=== PATIENT | female | born 1980 | race Caucasian/White ===

== ENCOUNTER 2017-04-30 22:05 | Emergency (ER) | payer MEDICARE, OTHER ==
[2017-04-30 22:18] VITALS: RESP 18
[2017-04-30] MEDS ORDERED: ONDANSETRON 4 MG/2 ML VIAL IVP STA (23:08)
[2017-04-30] MEDS ORDERED: SODIUM CHLORIDE 0.9% 1,000 ML IV STA (23:08)
[2017-04-30] MEDS ORDERED: METHADONE 10 MG TAB PO STA (23:09)
[2017-04-30 23:11] LABS: Appearance,Urine Cloudy (Clear); Bacteria,Urine Rare /hpf; Bilirubin,Urine Negative (Negative); Glucose,Urine (UA) Negative (Negative); Ketones,Urine 4+ (Negative); Leukocyte Esterase,Urine Small (Negative); Mucus,Urine Occasional /hpf; Nitrite,Urine Negative (Negative); PH, Urine 6.5 (5.0-8.0); Particle Count 8332; Protein,Urine 1+ (Negative); RBC,Urine 6 /hpf (0-5); Squamous Epithelial Cell,Urine 20 /hpf (0-4); UA Billing (MACRO vs. MICRO) MICRO; WBC,Urine 9 /hpf (0-5)
--- NOTE | 2017-04-30 23:31 | ED ---
Abdominal Pain HPI - General Chief Complaint: Abdominal Pain Stated Complaint: Vomiting Time Seen by Provider: 04/30/17 22:26 Source: patient Mode of arrival: wheelchair Limitations: no limitations - History of Present Illness Initial Comments: This patient is a 36-year-old woman who presents to be evaluated for a constellation of symptoms that includes diffuse, cramping abdominal pains, feeling hot and cold, and nausea and vomiting. This been going on today all day and getting worse into the evening. She has not noted any worsening or relieving factors. Symptoms currently moderate. No other associated symptoms. In reviewing the patient's past history medications it has become clear that she has been out of the fentanyl patches the last was placed approximately a week ago. MD Complaint: abdominal pain Onset/Timin -: days(s) Location: diffuse Severity: moderate Quality: cramping Consistency: intermittent Improves With: nothing Worsens With: nothing Associated Symptoms: nausea, vomiting - Related Data Home Medications Medication Instructions Recorded Confirmed Lurasidone [Latuda] 40 mg PO HS 09/17/14 09/28/15 QUEtiapine [SEROquel] 150 mg PO HS 09/17/14 09/28/15 Pregabalin [Lyrica] 300 mg PO BID 09/28/15 09/28/15 Previous Rx's Medication Instructions Recorded Sulfamethox-Tmp 800-160Mg [Bactrim 1 each PO Q12HR #6 tab 09/29/15 Ds] Allergies Allergy/AdvReac Type Severity Reaction Status Date / Time acetaminophen Allergy Rapid Verified 04/30/17 22:18 [From Tylenol-Codeine #3] Heart Rate codeine phosphate Allergy Rapid Verified 04/30/17 22:18 [From Tylenol-Codeine #3] Heart Rate hydrocortisone Allergy Rash/Hives Verified 04/30/17 22:18 Penicillins Allergy Swelling Verified 04/30/17 22:18 venlafaxine HCl Allergy Rapid Verified 04/30/17 22:18 [From Effexor] Heart Rate Review of Systems ROS Statement: Those systems with pertinent positive or pertinent negative responses have been documented in the HPI. ROS Other: All systems not noted in ROS Statement are negative. Constitutional: Reports: other (Feeling hot and cold) Eyes: Denies: vision change Respiratory: Denies: cough, dyspnea Cardiovascular: Denies: chest pain, edema, syncope Gastrointestinal: Reports: as per HPI, abdominal pain, nausea, vomiting, diarrhea. Denies: constipation, hematemesis, melena, hematochezia Genitourinary: Denies: dysuria, hematuria Musculoskeletal: Denies: back pain Skin: Denies: rash Neurological: Denies: headache, weakness, numbness Psychiatric: Reports: anxiety Past Medical History Past Medical History: Asthma History of Any Multi-Drug Resistant Organisms: MRSA Past Surgical History: Cholecystectomy, Hysterectomy, Orthopedic Surgery, Tubal Ligation Additional Past Surgical History / Comment(s): lt hip,lt knee replacements recent amputation to lle bka bunionectomy Past Psychological History: Anxiety, Depression Smoking Status: Never smoker Past Alcohol Use History: None Reported Past Drug Use History: None Reported General Exam Limitations: no limitations General appearance: alert, in no apparent distress Head exam: Present: atraumatic, normocephalic Eye exam: Present: normal appearance. Absent: scleral icterus, conjunctival injection Neck exam: Present: normal inspection Respiratory exam: Present: normal lung sounds bilaterally. Absent: respiratory distress, wheezes, rales, rhonchi, stridor Cardiovascular Exam: Present: regular rate, normal rhythm, normal heart sounds. Absent: systolic murmur, diastolic murmur, rubs, gallop GI/Abdominal exam: Present: soft. Absent: distended, tenderness, guarding, rebound, mass Extremities exam: Present: normal capillary refill, other (Left below knee amputation). Absent: pedal edema, calf tenderness Back exam: Present: normal inspection. Absent: CVA tenderness (R), CVA tenderness (L) Neurological exam: Present: alert Skin exam: Present: warm, dry, intact, normal color. Absent: rash Course Vital Signs 04/30/17 04/30/17 22:16 23:43 Temperature 99.9 F H 99.9 F H Pulse Rate 81 81 Respiratory 18 18 Rate Blood Pressure 130/88 151/97 O2 Sat by Pulse 97 96 Oximetry Medical Decision Making - Lab Data Result diagrams: 04/30/17 23:40 04/30/17 23:40 Lab Results 04/30/17 04/30/17 04/30/17 Range/Units 23:00 23:00 23:40 WBC (3.8-10.6) k/uL RBC (3.80-5.40) m/uL Hgb (11.4-16.0) gm/dL Hct (34.0-46.0) % MCV (80.0-100.0) fL MCH (25.0-35.0) pg MCHC (31.0-37.0) g/dL RDW (11.5-15.5) % Plt Count (150-450) k/uL Neutrophils % % Lymphocytes % % Monocytes % % Eosinophils % % Basophils % % Neutrophils # (1.3-7.7) k/uL Lymphocytes # (1.0-4.8) k/uL Monocytes # (0-1.0) k/uL Eosinophils # (0-0.7) k/uL Basophils # (0-0.2) k/uL Sodium 137 (137-145) mmol/L Potassium 4.0 (3.5-5.1) mmol/L Chloride 104 (98-107) mmol/L Carbon Dioxide 23 (22-30) mmol/L Anion Gap 10 mmol/L BUN 8 (7-17) mg/dL Creatinine 0.60 (0.52-1.04) mg/dL Est GFR (MDRD) Af Amer >60 (>60 ml/min/1.73 sqM) Est GFR (MDRD) Non-Af >60 (>60 ml/min/1.73 sqM) Glucose 104 H (74-99) mg/dL Plasma Lactic Acid Steve (0.7-2.0) mmol/L Calcium 8.9 (8.4-10.2) mg/dL Total Bilirubin 0.6 (0.2-1.3) mg/dL AST 16 (14-36) U/L ALT 24 (9-52) U/L Alkaline Phosphatase 59 (38-126) U/L Total Protein 6.6 (6.3-8.2) g/dL Albumin 3.7 (3.5-5.0) g/dL Amylase 54 (30-110) U/L Lipase 27 (23-300) U/L Urine Color Yellow Urine Appearance Cloudy H (Clear) Urine pH 6.5 (5.0-8.0) Ur Specific [place] 1.020 (1.001-1.035) Urine Protein 1+ H (Negative) Urine Glucose (UA) Negative (Negative) Urine Ketones 4+ H (Negative) Urine Blood Small H (Negative) Urine Nitrite Negative (Negative) Urine Bilirubin Negative (Negative) Urine Urobilinogen 3.0 (<2.0) mg/dL Ur Leukocyte Esterase Small H (Negative) Urine RBC 6 H (0-5) /hpf Urine WBC 9 H (0-5) /hpf Ur Squamous Epith Cells 20 H (0-4) /hpf Urine Bacteria Rare H (None) /hpf Urine Mucus Occasional H (None) /hpf Urine HCG, Qual Not Detected (Not Detectd) 04/30/17 04/30/17 Range/Units 23:40 23:40 WBC 7.3 (3.8-10.6) k/uL RBC 4.26 (3.80-5.40) m/uL Hgb 12.2 (11.4-16.0) gm/dL Hct 36.5 (34.0-46.0) % MCV 85.5 (80.0-100.0) fL MCH 28.6 (25.0-35.0) pg MCHC 33.5 (31.0-37.0) g/dL RDW 15.9 H (11.5-15.5) % Plt Count 162 (150-450) k/uL Neutrophils % 86 % Lymphocytes % 9 % Monocytes % 4 % Eosinophils % 0 % Basophils % 0 % Neutrophils # 6.3 (1.3-7.7) k/uL Lymphocytes # 0.7 L (1.0-4.8) k/uL Monocytes # 0.3 (0-1.0) k/uL Eosinophils # 0.0 (0-0.7) k/uL Basophils # 0.0 (0-0.2) k/uL Sodium (137-145) mmol/L Potassium (3.5-5.1) mmol/L Chloride (98-107) mmol/L Carbon Dioxide (22-30) mmol/L Anion Gap mmol/L BUN (7-17) mg/dL Creatinine (0.52-1.04) mg/dL Est GFR (MDRD) Af Amer (>60 ml/min/1.73 sqM) Est GFR (MDRD) Non-Af (>60 ml/min/1.73 sqM) Glucose (74-99) mg/dL Plasma Lactic Acid Steve 1.0 (0.7-2.0) mmol/L Calcium (8.4-10.2) mg/dL Total Bilirubin (0.2-1.3) mg/dL AST (14-36) U/L ALT (9-52) U/L Alkaline Phosphatase (38-126) U/L Total Protein (6.3-8.2) g/dL Albumin (3.5-5.0) g/dL Amylase (30-110) U/L Lipase (23-300) U/L Urine Color Urine Appearance (Clear) Urine pH (5.0-8.0) Ur Specific [place] (1.001-1.035) Urine Protein (Negative) Urine Glucose (UA) (Negative) Urine Ketones (Negative) Urine Blood (Negative) Urine Nitrite (Negative) Urine Bilirubin (Negative) Urine Urobilinogen (<2.0) mg/dL Ur Leukocyte Esterase (Negative) Urine RBC (0-5) /hpf Urine WBC (0-5) /hpf Ur Squamous Epith Cells (0-4) /hpf Urine Bacteria (None) /hpf Urine Mucus (None) /hpf Urine HCG, Qual (Not Detectd) Disposition Clinical Impression: Opioid withdrawal Disposition: HOME SELF-CARE Condition: Fair Instructions: Opioid Withdrawal (ED) Referrals: Crystal [place] MD [Primary Care Provider] - 1-2 days
[2017-04-30 23:55] LABS: Basophils % (A) 0 %; CH 30.1; CHCM 35.3; Eosinophils % (A) 0 %; HCT 36.5 % (34.0-46.0); HDW 3.05; HGB 12.2 gm/dL (11.4-16.0); Luc # (Auto) 0.07; Luc % (Auto) 1; Lymphocytes # (A) 0.7 k/uL (1.0-4.8); Lymphocytes % (A) 9 %; MCH 28.6 pg (25.0-35.0); MCHC 33.5 g/dL (31.0-37.0); MCV 85.5 fL (80.0-100.0); Mean Platelet Volume 8.3; Monocytes # (A) 0.3 k/uL (0-1.0); Monocytes % (A) 4 %; Neutrophils # (A) 6.3 k/uL (1.3-7.7); Neutrophils % (A) 86 %; RBC 4.26 m/uL (3.80-5.40); RDW 15.9 % (11.5-15.5); WBC 7.3 k/uL (3.8-10.6)
[2017-05-01 00:06] LABS: ALT 24 U/L (9-52); AST 16 U/L (14-36); Alkaline Phosphatase 59 U/L (38-126); Amylase 54 U/L (30-110); Anion Gap 10 mmol/L; Blood Urea Nitrogen 8 mg/dL (7-17); Calcium 8.9 mg/dL (8.4-10.2); Carbon Dioxide 23 mmol/L (22-30); Chloride 104 mmol/L (98-107); Glucose 104 mg/dL (74-99); Non-African American GFR(MDRD) >60 (>60 ml/min/1.73 sqM); Sodium 137 mmol/L (137-145); Total Bilirubin 0.6 mg/dL (0.2-1.3); Total Protein 6.6 g/dL (6.3-8.2)
[2017-05-01] MEDS ORDERED: QUEtiapine 100 MG TAB PO STA (00:20)
[2017-05-01] MEDS ORDERED: PREGABALIN 100 MG CAP PO STA (00:20)
[2017-05-01 00:48] VITALS: BP 148/92; PULSE 80; TEMP 99
== END 2017-05-01 00:46 | disposition home or self-care (01) ==
LOC: EC 22:05
DX: F11.23 Opioid dependence with withdrawal (principal); F32.9 Major depressive disorder, single episode, unspecified; Z90.49 Acquired absence of other specified parts of digestive tract; Z88.5 Allergy status to narcotic agent; Z88.6 Allergy status to analgesic agent; Z88.0 Allergy status to penicillin; Z88.8 Allergy status to other drugs, medicaments and biological substances; Z79.899 Other long term (current) drug therapy
CPT/HCPCS: 99284; 96374; 96361; 36415; 80053; 82150; 83605; 83690; 85025; 81001; 81025; J2405; S0109

== ENCOUNTER → 2017-10-24 | Outpatient (CLI) | payer MEDICARE, OTHER ==
[2017-10-24 14:04] VITALS: BP 136/62; PULSE 94; TEMP 98.2; BMI 37.3
--- NOTE | 2017-10-24 15:44 | FL ---
EXAMINATION TYPE: FL barium swallow DATE OF EXAM: 10/24/2017 LIMITED UGI: CLINICAL HISTORY: Gastric sleeve surgery 5 years ago with increased epigastric pain and cramping TECHNIQUE: Limited esophagram is performed utilizing 10 oz of barium. A total of 78 seconds of fluor oscopic time was utilized during procedure. 19 spot images were saved during procedure. COMPARISON: None. FINDINGS: The patient swallowed contrast without difficulty or delay. Esophageal peristalsis and mo tility are felt satisfactory. There is good flow of contrast along the proximal anastomosis into gas tric sleeve and distal anastomosis into remnant pylorus and first portion of. There is good some barry y of flow into second portion of duodenum with some gastroesophageal reflux noted. Cholecystectomy cl ips are noted. Spinal stimulator device is noted. No contrast extravasation is seen to suggest leak. IMPRESSION: Some delay in emptying past the sleeve at level of origin of second portion of duodenum c ausing some gastroesophageal reflux.
--- NOTE | 2017-10-24 15:49 | P.HPBAR ---
Bariatric H&P - History & Physicial H&P Date: 10/24/17 History & Physicial: Visit/CC: follow up visit Patient initial contact: Initial weight: Initial weight in pounds: Height: 5 ft 5 in Initial BMI: Last weight: Current weight: 101.741 kg Current weight in pounds: 224.30 Current BMI: 37.3 [place] body weight (based on NIH guidelines): 56.699 kg Excess body weight loss: The patient is a 37 year-old F who presents for Bariatric Assessment. Patient presents today for sleeve gastrectomy follow-up. She has complaints of crampy abdominal pain. Past Medical History Past Medical History: Asthma History of Any Multi-Drug Resistant Organisms: None Reported Year Discovered:: 2007 MDRO Source:: left arm Past Surgical History: Cholecystectomy, Hysterectomy, Orthopedic Surgery, Tubal Ligation Additional Past Surgical History / Comment(s): lt hip,lt knee replacements recent amputation to lle bka bunionectomy spinal cord stimulator placed 3 years ago Past Psychological History: Anxiety, Depression Smoking Status: Never smoker Past Alcohol Use History: None Reported Past Drug Use History: None Reported Surgical - Exam Vital Signs Temp Pulse BP 98.2 F 94 136/62 10/24/17 13:56 10/24/17 13:56 10/24/17 13:56 - General well developed, no distress - Eyes PERRL - ENT normal pinna - Neck no masses - Respiratory normal expansion - Cardiovascular Rhythm: regular - Abdomen Abdomen: soft, non tender Bariatric Assessment & Plan Plan: Patient will be scheduled for EGD and esophagram to evaluate her gastric sleeve. She'll follow-up in one Bariatric Checklist Checklist: Plan: Checklist: EGD: 1. Hiatal hernia: 2. H. Pylori: HgbA1c: Vitamin D: Smoking: Never smoker Primary care physician referral: dr conte Psychiatry clearance: Cardiology clearance: Sleep study: Diet journal: VTE risk score: VTE risk level: Rehab needs at discharge:
== END | disposition home or self-care (01) ==
LOC: BARWHC3 13:40
PROVIDERS: ATTEND Surgery
DX: Z48.815 Encounter for surgical aftercare following surgery on the digestive system (principal); G89.28 Other chronic postprocedural pain; R10.9 Unspecified abdominal pain; K21.9 Gastro-esophageal reflux disease without esophagitis; E66.01 Morbid (severe) obesity due to excess calories; J45.909 Unspecified asthma, uncomplicated; F32.9 Major depressive disorder, single episode, unspecified; F41.9 Anxiety disorder, unspecified; Z90.710 Acquired absence of both cervix and uterus; Z90.49 Acquired absence of other specified parts of digestive tract; Z98.890 Other specified postprocedural states; Z96.652 Presence of left artificial knee joint; Z96.642 Presence of left artificial hip joint; Z68.37 Body mass index [BMI] 37.0-37.9, adult
CPT/HCPCS: 74220; G0463; 99211

== ENCOUNTER 2017-10-28 10:00 | Day surgery (SDC) | payer MEDICARE, OTHER ==
[2017-10-26 14:40] VITALS: BMI 33.3
[~2017-10-28 10:00] MED LIST: LACTATED RINGERS 1,000 ML IV SCH
[2017-10-28 10:42] VITALS: RESP 16; TEMP 98.2
--- NOTE | 2017-10-28 10:51 | P.GSHP ---
History of Present Illness H&P Date: 10/28/17 Chief Complaint: GERD This is a 37-year-old female who presents today for EGD. Patient's had complaints of GERD. She is a history of sleeve. Past Medical History Past Medical History: Asthma, Musculoskeletal Disorder, Osteoarthritis (OA) Additional Past Medical History / Comment(s): had blood clot in left hip after replacement 10 yrs. ago, frequent abd. pain History of Any Multi-Drug Resistant Organisms: MRSA Date of last positivie culture/infection: 2007 MDRO Source:: left arm Past Surgical History: Bariatric Surgery, Cholecystectomy, Hysterectomy, Orthopedic Surgery, Tubal Ligation Additional Past Surgical History / Comment(s): lap band then removal of, gastric sleeve, lt hip, multiple hip surgs., lt knee replacement, amputation to lle-bka bunionectomy, spinal cord stimulator Past Anesthesia/Blood Transfusion Reactions: No Reported Reaction Smoking Status: Current every day smoker - Past Family History Mother Family Medical History: Cancer Medications and Allergies Home Medications Medication Instructions Recorded Confirmed Type HYDROcodone/APAP 7.5-325MG [[place] 7.5 mg PO DAILY 10/24/17 10/26/17 History 7.5-325] Butalb/Acetaminophen/Caffeine 1 tab PO BID PRN 10/25/17 10/26/17 History [Fioricet 50-300-40 mg Capsule] Pregabalin [Lyrica] 75 mg PO BID 10/25/17 10/26/17 History QUEtiapine XR [SEROquel XR] 150 mg PO DAILY 10/25/17 10/26/17 History Allergies Allergy/AdvReac Type Severity Reaction Status Date / Time acetaminophen Allergy Rapid Verified 10/26/17 14:24 [From Tylenol-Codeine #3] Heart Rate codeine phosphate Allergy Rapid Verified 10/26/17 14:24 [From Tylenol-Codeine #3] Heart Rate hydrocortisone Allergy Rash/Hives Verified 10/26/17 14:24 Penicillins Allergy Swelling Verified 10/26/17 14:24 venlafaxine HCl Allergy Rapid Verified 10/26/17 14:24 [From Effexor] Heart Rate Surgical - Exam Vital Signs Temp Pulse Resp BP Pulse Ox 98.2 F 80 16 122/80 96 10/28/17 10:41 10/28/17 10:41 10/28/17 10:41 10/28/17 10:41 10/28/17 10:41 - General well developed, no distress - Eyes PERRL - ENT normal pinna - Neck no masses - Respiratory normal expansion - Cardiovascular Rhythm: regular - Abdomen Abdomen: soft, non tender Assessment and Plan Assessment: GERD. We'll perform EGD
[2017-10-28] MEDS ORDERED: LIDOCAINE 1% 20 ML VIAL (10MG/ML) FOR IV START INTRADERMA ONE (10:52)
[2017-10-28] MEDS ORDERED: PROPOFOL 10 MG/ML 20 ML VIAL IV ONE (10:56)
[2017-10-28] MEDS ORDERED: LIDOCAINE 1% INJ 10MG/ML (20 ML MDV) ONE (10:56)
--- NOTE | 2017-10-28 11:12 | P.OP ---
Date of Procedure: 10/28/17 Preoperative Diagnosis: GERD Postoperative Diagnosis: Antral gastritis Pyloric stricture Procedure(s) Performed: EGD Anesthesia: MAC Surgeon: Shankar Frausto Pathology: other (Antrum) Condition: stable Disposition: PACU Description of Procedure: The patient's placed on the endoscopy table lateral position. She received IV sedation. The gastric was placed oropharynx passed in the esophagus and stomach. The pylorus appeared to be strictured. Scope was then placed through the pylorus. First and second portion of the duodenum appeared normal. Scope was then brought back the antrum and a biopsies performed. The pylorus was balloon dilated with a 20-[place] balloon dilator. The remainder of the gastric sleeve appeared normal. The GE junction was at 40 cm s. The distal esophagus and proximal esophagus was normal. Scope was withdrawn for patient.
[2017-10-28 11:52] VITALS: BP 133/86
[2017-10-28 12:17] VITALS: PULSE 84
== END 2017-10-28 12:52 | disposition home or self-care (01) ==
LOC: ORWHC2ENDO 10:00
PROVIDERS: ATTEND Surgery
DX: K29.50 Unspecified chronic gastritis without bleeding (principal); K31.1 Adult hypertrophic pyloric stenosis; Z90.3 Acquired absence of stomach [part of]; J45.909 Unspecified asthma, uncomplicated; M19.90 Unspecified osteoarthritis, unspecified site; Z86.14 Personal history of Methicillin resistant Staphylococcus aureus infection; Z96.652 Presence of left artificial knee joint; Z89.512 Acquired absence of left leg below knee; Z79.891 Long term (current) use of opiate analgesic; Z79.899 Other long term (current) drug therapy; Z88.6 Allergy status to analgesic agent; Z88.5 Allergy status to narcotic agent; Z88.0 Allergy status to penicillin; Z88.8 Allergy status to other drugs, medicaments and biological substances; F17.200 Nicotine dependence, unspecified, uncomplicated
CPT/HCPCS: 88305; 43239; 43249; J2001; J2704

== ENCOUNTER → 2018-04-10 | Outpatient (CLI) | payer MEDICARE, OTHER ==
[2018-04-10 14:37] VITALS: BP 149/79; PULSE 77; RESP 14; BMI 37.7
--- NOTE | 2018-04-10 16:44 | P.HPBAR ---
Bariatric H&P - History & Physicial H&P Date: 04/10/18 History & Physicial: Visit/CC: f/u Patient initial contact: Initial weight: Initial weight in pounds: Height: 5 ft 5 in Initial BMI: Last weight: Current weight: 102.784 kg Current weight in pounds: 226.60 Current BMI: 37.7 [place] body weight (based on NIH guidelines): 56.699 kg Excess body weight loss: The patient is a 37 year-old F who presents for Bariatric Assessment. Patient presents today for sleeve gastrectomy follow-up. She states he has some GERD symptoms. Her weight has been stable. Her last esophagram was reviewed and there appears to be some holdup of contrast and second portion of duodenum. Past Medical History Past Medical History: Asthma, Musculoskeletal Disorder, Osteoarthritis (OA) Additional Past Medical History / Comment(s): had blood clot in left hip after replacement 10 yrs. ago, frequent abd. pain History of Any Multi-Drug Resistant Organisms: MRSA Year Discovered:: 2007 MDRO Source:: left arm Past Surgical History: Bariatric Surgery, Cholecystectomy, Hysterectomy, Orthopedic Surgery, Tubal Ligation Additional Past Surgical History / Comment(s): lap band then removal of, gastric sleeve, lt hip, multiple hip surgs., lt knee replacement, amputation to lle-bka bunionectomy, spinal cord stimulator, patient had sutures placed in anterior right forearm 03/30/18 due to a fall sustained and arm lacerated on a metal stake Past Anesthesia/Blood Transfusion Reactions: No Reported Reaction Past Psychological History: Anxiety, Depression Smoking Status: Current every day smoker Past Alcohol Use History: Occasional Additional Past Alcohol Use History / Comment(s): <1/2ppd on & off since age of 14 Past Drug Use History: Marijuana Additional Drug Use History / Comment(s): occasional use - Past Family History Mother Family Medical History: Cancer Surgical - Exam Vital Signs Pulse Resp BP 77 14 149/79 04/10/18 14:32 04/10/18 14:32 04/10/18 14:32 - General well developed, no distress - Abdomen Abdomen: soft, non tender Bariatric Assessment & Plan Plan: GERD. Patient was scheduled for EGD. Bariatric Checklist Checklist: Plan: Checklist: EGD: 1. Hiatal hernia: 2. H. Pylori: HgbA1c: Vitamin D: Smoking: Current every day smoker Primary care physician referral: dr conte Psychiatry clearance: Cardiology clearance: Sleep study: Diet journal: VTE risk score: VTE risk level: Rehab needs at discharge:
== END | disposition home or self-care (01) ==
LOC: BARWHC3 13:57
PROVIDERS: ATTEND Surgery
DX: Z09 Encounter for follow-up examination after completed treatment for conditions other than malignant neoplasm (principal); K21.9 Gastro-esophageal reflux disease without esophagitis; F41.9 Anxiety disorder, unspecified; F32.9 Major depressive disorder, single episode, unspecified; F17.200 Nicotine dependence, unspecified, uncomplicated; Z98.84 Bariatric surgery status; Z90.49 Acquired absence of other specified parts of digestive tract; Z98.890 Other specified postprocedural states; Z98.51 Tubal ligation status; Z90.710 Acquired absence of both cervix and uterus; Z96.652 Presence of left artificial knee joint; Z89.512 Acquired absence of left leg below knee
CPT/HCPCS: 99211

== ENCOUNTER 2018-04-26 10:41 | Day surgery (SDC) | payer MEDICARE, OTHER ==
[2018-04-24 13:31] VITALS: BMI 32.3
[~2018-04-26 10:41] MED LIST changes: +LIDOCAINE 1% 20 ML VIAL (10MG/ML) FOR IV START INTRADERMA PRN; +MIDAZOLAM 2 MG/2 ML VIAL IV PRN
[2018-04-26 13:21] VITALS: RESP 16; TEMP 97.7
--- NOTE | 2018-04-26 14:19 | P.GSHP ---
History of Present Illness H&P Date: 04/26/18 Chief Complaint: GERD Is a 29-year-old female with a previous history of sleeve gastrectomy. Patient has complaints of GERD. She presents today for EGD. Past Medical History Past Medical History: Asthma, Musculoskeletal Disorder, Osteoarthritis (OA) Additional Past Medical History / Comment(s): had blood clot in left hip after replacement 10 yrs. ago, frequent abd. pain History of Any Multi-Drug Resistant Organisms: MRSA Date of last positivie culture/infection: 2007 MDRO Source:: left arm Past Surgical History: Bariatric Surgery, Cholecystectomy, Hysterectomy, Orthopedic Surgery, Tubal Ligation Additional Past Surgical History / Comment(s): lap band then removal of, gastric sleeve, lt hip, multiple hip surgs., lt knee replacement, amputation to lle-bka bunionectomy, spinal cord stimulator, patient had sutures placed in anterior right forearm 03/30/18 due to a fall sustained and arm lacerated on a metal stake Past Anesthesia/Blood Transfusion Reactions: No Reported Reaction Smoking Status: Current every day smoker - Past Family History Mother Family Medical History: Cancer Medications and Allergies Home Medications Medication Instructions Recorded Confirmed Type Butalb/Acetaminophen/Caffeine 1 tab PO BID PRN 10/25/17 04/26/18 History [Fioricet 50-300-40 mg Capsule] QUEtiapine XR [SEROquel XR] 200 mg PO DAILY 10/25/17 04/24/18 History Ranitidine HCl [Zantac] 150 mg PO BID 04/10/18 04/26/18 History Gabapentin [Neurontin] 100 mg PO DAILY 04/24/18 04/24/18 History HYDROcodone/APAP 10-325MG [[place] 1 tab PO Q6HR PRN 04/24/18 04/24/18 History 10-325] Vortioxetine Hydrobromide 10 mg PO DAILY 04/24/18 04/24/18 History [Trintellix] Allergies Allergy/AdvReac Type Severity Reaction Status Date / Time acetaminophen Allergy Rapid Verified 04/26/18 13:09 [From Tylenol-Codeine #3] Heart Rate codeine phosphate Allergy Rapid Verified 04/26/18 13:09 [From Tylenol-Codeine #3] Heart Rate hydrocortisone Allergy Rash/Hives Verified 04/26/18 13:09 Penicillins Allergy Swelling Verified 04/26/18 13:09 pregabalin [From Lyrica] Allergy Dizziness Verified 04/26/18 13:09 venlafaxine HCl Allergy Rapid Verified 04/26/18 13:09 [From Effexor] Heart Rate Surgical - Exam Vital Signs Temp Pulse Resp BP Pulse Ox 97.7 F 67 16 136/97 97 04/26/18 13:19 04/26/18 13:19 04/26/18 13:19 04/26/18 13:19 04/26/18 13:19 - General well developed, no distress - Eyes PERRL - ENT normal pinna - Neck no masses - Respiratory normal expansion - Cardiovascular Rhythm: regular - Abdomen Abdomen: soft, non tender Assessment and Plan Assessment: GERD. We'll perform EGD.
[2018-04-26] MEDS ORDERED: PROPOFOL 10 MG/ML 20 ML VIAL IV ONE (14:20)
--- NOTE | 2018-04-26 14:37 | P.OP ---
Date of Procedure: 04/26/18 Preoperative Diagnosis: GERD Postoperative Diagnosis: Mild antral gastritis No evidence of sleeve stricture Mild esophagitis pathology pending Procedure(s) Performed: EGD Anesthesia: MAC Surgeon: Shankar Frausto Pathology: other (Antrum, esophagus) Condition: stable Disposition: PACU Description of Procedure: The patient's placed on the endoscopy table in the lateral position. She received IV sedation. The gastroscope placed oropharynx and passed into the esophagus into the stomach. Scope was placed through the pylorus. The first and second portion of the duodenum appeared normal. The scope was then brought back the antrum this was mildly inflamed a biopsies performed. Scope was then brought back through the gastric sleeve there is no evidence of obstruction. The GE junction was at 40 cm. The distal esophagus appeared mildly inflamed a biopsies performed. The proximal esophagus appeared normal. Scope was then withdrawn from patient.
[2018-04-26 15:03] VITALS: BP 138/70; PULSE 60
== END 2018-04-26 15:14 | disposition home or self-care (01) ==
LOC: ORWHC2ENDO 10:41
PROVIDERS: ATTEND Surgery
DX: K29.50 Unspecified chronic gastritis without bleeding (principal); K21.0 Gastro-esophageal reflux disease with esophagitis; J45.909 Unspecified asthma, uncomplicated; F17.210 Nicotine dependence, cigarettes, uncomplicated; M19.90 Unspecified osteoarthritis, unspecified site; Z86.14 Personal history of Methicillin resistant Staphylococcus aureus infection; Z98.84 Bariatric surgery status; Z96.642 Presence of left artificial hip joint; Z96.652 Presence of left artificial knee joint; Z89.512 Acquired absence of left leg below knee; Z90.710 Acquired absence of both cervix and uterus; Z88.5 Allergy status to narcotic agent; Z88.0 Allergy status to penicillin; Z88.8 Allergy status to other drugs, medicaments and biological substances; Z79.899 Other long term (current) drug therapy
CPT/HCPCS: 88305; 43239; J2704

== ENCOUNTER → 2018-10-10 | Outpatient (CLI) | payer MEDICARE, OTHER ==
--- NOTE | 2018-10-10 12:02 | XR ---
EXAMINATION TYPE: XR knee complete RT DATE OF EXAM: 10/10/2018 CLINICAL HISTORY: Right knee pain after fall injury yesterday TECHNIQUE: Three views of the right knee are obtained. COMPARISON: None. FINDINGS: There is no acute fracture/dislocation evident in right knee. Mild narrowing medial tibiof emoral compartment is present. There is mild to moderate narrowing patellofemoral compartment. No sig nificant spurring is seen. There is mild subcutaneous edema superficial infrapatellar level noted on lateral view. IMPRESSION: There is no acute fracture or dislocation in the right knee.
== END | disposition home or self-care (01) ==
LOC: RADXRMAIN 11:37
PROVIDERS: ATTEND Internal Medicine
DX: S80.01XA Contusion of right knee, initial encounter (principal)

== ENCOUNTER 2018-10-14 21:12 | Emergency (ER) | payer MEDICARE, OTHER ==
[2018-10-14 22:04] VITALS: PULSE 96
[2018-10-14] MEDS ORDERED: KETOROLAC 30 MG/ML 1 ML VIAL IM STA (23:04)
--- NOTE | 2018-10-15 00:15 | US ---
EXAMINATION TYPE: US venous doppler duplex LE LT DATE OF EXAM: 10/14/2018 11:44 PM COMPARISON: US CLINICAL HISTORY: Pain. Pt states pain left leg at amputation site/ pt a below the knee amputee x 4 y rs SIDE PERFORMED: Left TECHNIQUE: The lower extremity deep venous system is examined utilizing real time linear array sonog lusi with graded compression, doppler sonography and color-flow sonography. VESSELS IMAGED: External Iliac Vein (EIV) Common Femoral Vein Deep Femoral Vein Greater Saphenous Vein * Femoral Vein Popliteal Vein Small Saphenous Vein * Proximal Calf Veins (* superficial vessels) Left Leg: Negative for DVT IMPRESSION: No evidence of deep venous thrombosis in the left leg.
--- NOTE | 2018-10-15 00:20 | XR ---
EXAMINATION TYPE: XR knee complete LT DATE OF EXAM: 10/15/2018 COMPARISON: 07/09/2015 HISTORY: Pain TECHNIQUE: 4 views FINDINGS: There is a [id number] amputation. There is a left knee prosthesis. Components appear in anatomic position. There is extensive soft tissue calcification at the stump that measures overall 5 x 2.5 cm. I see no focal bone destruction. IMPRESSION: No evidence of osteomyelitis. No fracture. There is development of soft tissue calcificat ion at the stomach.
--- NOTE | 2018-10-15 00:34 | ED ---
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 Presented today for evaluation of left stump pain. Patient states the past 2 days she has had increasing pain.. She denied knowing any erythema or warmth, numbness tingling or loss of sensation. Patient states there is a small bruise however remainder of examination of her stump she states is normal. Patient denies any swelling of the left lower extremity. Patient denies any fever, chills or night sweats. Patient denies any hip pain or trauma to the leg or stop. Remainder of ROS negative, patient denies any recentshortness of breath, chest pain, back pain, abdominal pain, nausea or vomiting, numbness or tingling, dysuria or hematuria, constipation or diarrhea, headaches or visual changes, or any other complaints. Upon arrival patient is well-appearing she is able to ambulate, however admits to pain at site of stump. (Shelby Zuniga) - Related Data Home Medications Medication Instructions Recorded Confirmed Butalb/Acetaminophen/Caffeine 1 tab PO BID PRN 10/25/17 04/26/18 [Fioricet 50-300-40 mg Capsule] QUEtiapine XR [SEROquel XR] 200 mg PO DAILY 10/25/17 04/24/18 Ranitidine HCl [Zantac] 150 mg PO BID 04/10/18 04/26/18 Gabapentin [Neurontin] 100 mg PO DAILY 04/24/18 04/24/18 HYDROcodone/APAP 10-325MG [[place] 1 tab PO Q6HR PRN 04/24/18 04/24/18 10-325] Vortioxetine Hydrobromide 10 mg PO DAILY 04/24/18 04/24/18 [Trintellix] Previous Rx's Medication Instructions Recorded Omeprazole 40 mg PO DAILY #60 capsule. 04/26/18 Sucralfate [Carafate] 1 gm PO BID #60 tablet 04/26/18 Allergies Allergy/AdvReac Type Severity Reaction Status Date / Time acetaminophen Allergy Rapid Verified 10/14/18 22:03 [From Tylenol-Codeine #3] Heart Rate codeine phosphate Allergy Rapid Verified 10/14/18 22:03 [From Tylenol-Codeine #3] Heart Rate hydrocortisone Allergy Rash/Hives Verified 10/14/18 22:03 Penicillins Allergy Swelling Verified 10/14/18 22:03 pregabalin [From Lyrica] Allergy Dizziness Verified 10/14/18 22:03 venlafaxine HCl Allergy Rapid Verified 10/14/18 22:03 [From Effexor] Heart Rate Review of Systems ROS Other: All systems not noted in ROS Statement are negative. <Shelby Zuniga - Last Filed: 10/16/18 04:06> ROS Other: All systems not noted in ROS Statement are negative. <Sheila Heard - Last Filed: 10/17/18 03:19> ROS Statement: Those systems with pertinent positive or pertinent negative responses have been documented in the HPI. Past Medical History Past Medical History: Asthma, Musculoskeletal Disorder, Osteoarthritis (OA) Additional Past Medical History / Comment(s): had blood clot in left hip after replacement 10 yrs. ago, frequent abd. pain History of Any Multi-Drug Resistant Organisms: MRSA Date of last positivie culture/infection: 2007 MDRO Source:: left arm Past Surgical History: Bariatric Surgery, Cholecystectomy, Hysterectomy, Orthopedic Surgery, Tubal Ligation Additional Past Surgical History / Comment(s): lap band then removal of, gastric sleeve, lt hip, multiple hip surgs., lt knee replacement, amputation to lle-bka bunionectomy, spinal cord stimulator, patient had sutures placed in anterior right forearm 03/30/18 due to a fall sustained and arm lacerated on a metal stake Past Anesthesia/Blood Transfusion Reactions: No Reported Reaction Past Psychological History: Anxiety, Depression Smoking Status: Current every day smoker Past Alcohol Use History: None Reported Past Drug Use History: None Reported - Past Family History Mother Family Medical History: Cancer <Shelby Zuniga - Last Filed: 10/16/18 04:06> General Exam Limitations: physical limitation <Shelby Zuniga - Last Filed: 10/16/18 04:06> <Sheila Heard P - Last Filed: 10/17/18 03:19> - General Exam Comments Initial Comments: General: The patient is awake and alert, in no distress, and does not appear acutely ill. Eye: Pupils are equal, round and reactive to light, extra-ocular movements are intact. No nystagmus. There is normal conjunctiva bilaterally. No signs of icterus. Ears, nose, mouth and throat: There are moist mucous membranes and no oral lesions. Neck: The neck is supple, there is no tenderness or JVD. Cardiovascular: There is a regular rate and rhythm. No murmur, rub or gallop is appreciated. Respiratory: Lungs are clear to auscultation, respirations are non-labored, breath sounds are equal. No wheezes, stridor, rales, or rhonchi. Musculoskeletal: Upon inspection there is below-knee amputation of the left lower extremity. There is no erythema or warmth. Very small area of ecchymosis at stump, no masses. Normal ROM of the hips bilaterally and knee joint., no tenderness. Strength 5/5. Sensation intact. right DP +2. Neurological: A&O x 3. CN II-XII intact, There are no obvious motor or sensory deficits. Coordination appears grossly intact. Speech is normal. Skin: Skin is warm and dry and no rashes or lesions are noted. Psychiatric: Cooperative, appropriate mood & affect, normal judgment. (Shelby Zuniga) Vital Signs 10/14/18 10/15/18 22:01 01:24 Temperature 98.5 F 98.6 F Pulse Rate 96 96 Respiratory 17 16 Rate Blood Pressure 140/87 133/80 O2 Sat by Pulse 99 99 Oximetry Medical Decision Making <Shelby Zuniga - Last Filed: 10/16/18 04:06> <Sheila Heard P - Last Filed: 10/17/18 03:19> - Medical Decision Making Physical examination of the left [id number] ampuation. There are no signs concerning for infection, no erythema or warmth. X-ray obtained revealing calcifications of stomach of below-knee amputation. Ultrasound negative for deep venous thrombosis. At this time do feel consultations Past because of patient's increased pain and some site. Did recommend outpatient follow-up with surgeon for further evaluation. I discussed the case briefly with attending provider Dr. Heard who agreed the impression and plan. Patient was discharged stable condition appearing well, she is agreeable plan. Return parameters were discussed at length patient verbalizes understanding. Patient provided a work note. (Shelby Zuniga) I was available for consultation in the emergency department. The history and physical exam were done by the midlevel provider. I was consulted for this patient's care. I reviewed the case with the midlevel provider and based on their presentation of the patient, I agree with the assessment, medical decision making and plan of care as documented. (Sheila Heard) Disposition Is patient prescribed a controlled substance at d/c from ED?: No Time of Disposition: 00:33 <Shelby Zuniga - Last Filed: 10/16/18 04:06> <Sheila Heard - Last Filed: 10/17/18 03:19> Clinical Impression: Amputation stump pain Disposition: HOME SELF-CARE Condition: Good Instructions (If sedation given, give patient instructions): Leg Pain (ED) Additional Instructions: Please use medication as discussed. Please follow-up with family doctor in the next 2 days, please follow-up with surgeon next week for further evaluation. Please return to emergency room if the symptoms increase or worsen or for any other concerns. Referrals: Crystal Beach MD [Primary Care Provider] - 1-2 days
[2018-10-15 01:25] VITALS: BP 133/80; RESP 16; TEMP 98.6
== END 2018-10-15 01:25 | disposition home or self-care (01) ==
LOC: EC 21:12
DX: T87.89 Other complications of amputation stump (principal); F32.9 Major depressive disorder, single episode, unspecified; F17.200 Nicotine dependence, unspecified, uncomplicated; Z79.899 Other long term (current) drug therapy; Z88.0 Allergy status to penicillin; Z88.5 Allergy status to narcotic agent; Z88.6 Allergy status to analgesic agent; Z88.8 Allergy status to other drugs, medicaments and biological substances; Z96.642 Presence of left artificial hip joint; Z96.652 Presence of left artificial knee joint; Z89.512 Acquired absence of left leg below knee
CPT/HCPCS: 73562; 93971; 99284; 96372; J1885

== ENCOUNTER 2018-10-21 22:15 | Emergency (ER) | payer MEDICARE, OTHER ==
[2018-10-21 22:26] VITALS: RESP 18; TEMP 98.5
[2018-10-21] MEDS ORDERED: MORPHINE SULFATE 4 MG/ML SYRINGE IVP STA (22:49)
--- NOTE | 2018-10-21 23:16 | ED ---
General Adult HPI - General Chief complaint: Extremity Problem,Nontraumatic Stated complaint: Leg pain Time Seen by Provider: 10/21/18 22:30 Source: patient, RN notes reviewed Mode of arrival: wheelchair Limitations: no limitations - History of Present Illness Initial comments: 38-year-old female presents to the emergency department for a chief complaint of left leg swelling 1 week. Patient had a below the knee amputation 4 years ago due to failed ankle fusion. She states over the past week the stump has been painful and swollen. She states she was evaluated here previously this week. She states she then saw her surgeon who ordered her a CBC and CRP. However patient did not obtain these outpatient per his prescription. She states she has been taking more Lajas than normal due to this pain. She denies fevers or chills. She does admit it seems somewhat erythematous. Patient has no other complaints at this time including shortness of breath, chest pain, abdominal pain, nausea or vomiting, headache, or visual changes. - Related Data Home Medications Medication Instructions Recorded Confirmed Butalb/Acetaminophen/Caffeine 1 tab PO BID PRN 10/25/17 04/26/18 [Fioricet 50-300-40 mg Capsule] QUEtiapine XR [SEROquel XR] 200 mg PO DAILY 10/25/17 04/24/18 Ranitidine HCl [Zantac] 150 mg PO BID 04/10/18 04/26/18 Gabapentin [Neurontin] 100 mg PO DAILY 04/24/18 04/24/18 HYDROcodone/APAP 10-325MG [[place] 1 tab PO Q6HR PRN 04/24/18 04/24/18 10-325] Vortioxetine Hydrobromide 10 mg PO DAILY 04/24/18 04/24/18 [Trintellix] Previous Rx's Medication Instructions Recorded Omeprazole 40 mg PO DAILY #60 capsule. 04/26/18 Sucralfate [Carafate] 1 gm PO BID #60 tablet 04/26/18 Cephalexin [Keflex] 500 mg PO Q6HR 7 Days cap 10/22/18 Allergies Allergy/AdvReac Type Severity Reaction Status Date / Time acetaminophen Allergy Rapid Verified 10/21/18 22:26 [From Tylenol-Codeine #3] Heart Rate codeine phosphate Allergy Rapid Verified 10/21/18 22:26 [From Tylenol-Codeine #3] Heart Rate hydrocortisone Allergy Rash/Hives Verified 10/21/18 22:26 Penicillins Allergy Swelling Verified 10/21/18 22:26 pregabalin [From Lyrica] Allergy Dizziness Verified 10/21/18 22:26 venlafaxine HCl Allergy Rapid Verified 10/21/18 22:26 [From Effexor] Heart Rate Review of Systems ROS Statement: Those systems with pertinent positive or pertinent negative responses have been documented in the HPI. ROS Other: All systems not noted in ROS Statement are negative. Past Medical History Past Medical History: Asthma, Musculoskeletal Disorder, Osteoarthritis (OA) Additional Past Medical History / Comment(s): had blood clot in left hip after replacement 10 yrs. ago, frequent abd. pain History of Any Multi-Drug Resistant Organisms: MRSA Date of last positivie culture/infection: 2007 MDRO Source:: left arm Past Surgical History: Bariatric Surgery, Cholecystectomy, Hysterectomy, Orthopedic Surgery, Tubal Ligation Additional Past Surgical History / Comment(s): lap band then removal of, gastric sleeve, lt hip, multiple hip surgs., lt knee replacement, amputation to lle-bka bunionectomy, spinal cord stimulator, patient had sutures placed in anterior right forearm 03/30/18 due to a fall sustained and arm lacerated on a metal stake Past Anesthesia/Blood Transfusion Reactions: No Reported Reaction Past Psychological History: Anxiety, Bipolar, Depression Smoking Status: Current every day smoker Past Alcohol Use History: Rare Past Drug Use History: None Reported, Marijuana - Past Family History Mother Family Medical History: Cancer General Exam Limitations: no limitations General appearance: alert, in no apparent distress Head exam: Present: atraumatic, normocephalic, normal inspection Eye exam: Present: normal appearance, PERRL, EOMI. Absent: scleral icterus, conjunctival injection, periorbital swelling ENT exam: Present: normal exam, mucous membranes moist Neck exam: Present: normal inspection, full ROM. Absent: tenderness, meningismus, lymphadenopathy Respiratory exam: Present: normal lung sounds bilaterally. Absent: respiratory distress, wheezes, rales, rhonchi, stridor Cardiovascular Exam: Present: regular rate, normal rhythm, normal heart sounds. Absent: systolic murmur, diastolic murmur, rubs, gallop, clicks Extremities exam: Present: full ROM (Full range of motion of the left knee), tenderness (Tenderness noted to the distal left lower extremity of the stump.), normal capillary refill (Capillary refill less than 2 seconds, skin appropriate temperature.), other (There is nonpitting edema noted to the left stump. No purulent drainage, no abrasions or lacerations. No significant erythema or increased warmth.). Absent: calf tenderness (No tenderness to the posterior knee or thigh) Neurological exam: Present: alert, oriented X3, CN II-XII intact Psychiatric exam: Present: normal affect, normal mood Course Vital Signs 10/21/18 22:22 Temperature 98.5 F Pulse Rate 93 Respiratory 18 Rate Blood Pressure 145/92 O2 Sat by Pulse 97 Oximetry Medical Decision Making - Medical Decision Making CBC CMP unremarkable. White count 5.5. CRP unremarkable at 7.8. BNP 109, no evidence of heart failure. No significant concern for infection. No erythema or increased warmth. Patient had a previously negative ultrasound 1 week ago of the lower extremity because of this problem. This report was reviewed. Although I do have a low suspicion for infection patient will be given Keflex for possible cellulitic infection causing such swelling. Patient has been in contact with her surgeon who saw her last week and ordered outpatient labs. She will follow-up with him and return if she has worsening symptoms. - Lab Data Result diagrams: 10/21/18 23:07 10/21/18 23:07 Lab Results 10/21/18 10/21/18 10/21/18 Range/Units 23:07 23:07 23:07 WBC 5.5 (3.8-10.6) k/uL RBC 3.94 (3.80-5.40) m/uL Hgb 10.7 L (11.4-16.0) gm/dL Hct 32.2 L (34.0-46.0) % MCV 81.8 (80.0-100.0) fL MCH 27.1 (25.0-35.0) pg MCHC 33.1 (31.0-37.0) g/dL RDW 16.2 H (11.5-15.5) % Plt Count 206 (150-450) k/uL Neutrophils % 73 % Lymphocytes % 18 % Monocytes % 5 % Eosinophils % 3 % Basophils % 0 % Neutrophils # 4.0 (1.3-7.7) k/uL Lymphocytes # 1.0 (1.0-4.8) k/uL Monocytes # 0.3 (0-1.0) k/uL Eosinophils # 0.2 (0-0.7) k/uL Basophils # 0.0 (0-0.2) k/uL Manual Slide Review Performed Anisocytosis Slight Sodium 139 (137-145) mmol/L Potassium 4.3 (3.5-5.1) mmol/L Chloride 109 H (98-107) mmol/L Carbon Dioxide 24 (22-30) mmol/L Anion Gap 6 mmol/L BUN 15 (7-17) mg/dL Creatinine 0.81 (0.52-1.04) mg/dL Est GFR (CKD-EPI)AfAm >90 (>60 ml/min/1.73 sqM) Est GFR (CKD-EPI)NonAf >90 (>60 ml/min/1.73 sqM) Glucose 89 (74-99) mg/dL Plasma Lactic Acid Steve 1.0 (0.7-2.0) mmol/L Calcium 8.7 (8.4-10.2) mg/dL Total Bilirubin 0.3 (0.2-1.3) mg/dL AST 21 (14-36) U/L ALT 39 (9-52) U/L Alkaline Phosphatase 70 (38-126) U/L C-Reactive Protein 7.8 (<10.0) mg/L NT-Pro-B Natriuret Pep pg/mL Total Protein 6.5 (6.3-8.2) g/dL Albumin 3.6 (3.5-5.0) g/dL Urine Color Urine Appearance (Clear) Urine pH (5.0-8.0) Ur Specific Louise (1.001-1.035) Urine Protein (Negative) Urine Glucose (UA) (Negative) Urine Ketones (Negative) Urine Blood (Negative) Urine Nitrite (Negative) Urine Bilirubin (Negative) Urine Urobilinogen (<2.0) mg/dL Ur Leukocyte Esterase (Negative) Urine RBC (0-5) /hpf Urine WBC (0-5) /hpf Ur Squamous Epith Cells (0-4) /hpf Hyaline Casts (0-2) /lpf Urine Mucus (None) /hpf 10/21/18 10/22/18 Range/Units 23:07 00:44 WBC (3.8-10.6) k/uL RBC (3.80-5.40) m/uL Hgb (11.4-16.0) gm/dL Hct (34.0-46.0) % MCV (80.0-100.0) fL MCH (25.0-35.0) pg MCHC (31.0-37.0) g/dL RDW (11.5-15.5) % Plt Count (150-450) k/uL Neutrophils % % Lymphocytes % % Monocytes % % Eosinophils % % Basophils % % Neutrophils # (1.3-7.7) k/uL Lymphocytes # (1.0-4.8) k/uL Monocytes # (0-1.0) k/uL Eosinophils # (0-0.7) k/uL Basophils # (0-0.2) k/uL Manual Slide Review Anisocytosis Sodium (137-145) mmol/L Potassium (3.5-5.1) mmol/L Chloride (98-107) mmol/L Carbon Dioxide (22-30) mmol/L Anion Gap mmol/L BUN (7-17) mg/dL Creatinine (0.52-1.04) mg/dL Est GFR (CKD-EPI)AfAm (>60 ml/min/1.73 sqM) Est GFR (CKD-EPI)NonAf (>60 ml/min/1.73 sqM) Glucose (74-99) mg/dL Plasma Lactic Acid Steve (0.7-2.0) mmol/L Calcium (8.4-10.2) mg/dL Total Bilirubin (0.2-1.3) mg/dL AST (14-36) U/L ALT (9-52) U/L Alkaline Phosphatase (38-126) U/L C-Reactive Protein (<10.0) mg/L NT-Pro-B Natriuret Pep 109 pg/mL Total Protein (6.3-8.2) g/dL Albumin (3.5-5.0) g/dL Urine Color Yellow Urine Appearance Cloudy H (Clear) Urine pH 6.5 (5.0-8.0) Ur Specific Louise 1.022 (1.001-1.035) Urine Protein Trace H (Negative) Urine Glucose (UA) Negative (Negative) Urine Ketones Negative (Negative) Urine Blood Negative (Negative) Urine Nitrite Negative (Negative) Urine Bilirubin Negative (Negative) Urine Urobilinogen 6.0 (<2.0) mg/dL Ur Leukocyte Esterase Negative (Negative) Urine RBC 1 (0-5) /hpf Urine WBC 1 (0-5) /hpf Ur Squamous Epith Cells 10 H (0-4) /hpf Hyaline Casts 1 (0-2) /lpf Urine Mucus Occasional H (None) /hpf Disposition Clinical Impression: Swelling of lower leg, Amputation stump pain Disposition: HOME SELF-CARE Condition: Good Additional Instructions: Please follow up with surgery in 1-2 days. Please return to the emergency department if you have any worsening symptoms or fevers. Prescriptions: Cephalexin [Keflex] 500 mg PO Q6HR 7 Days cap Is patient prescribed a controlled substance at d/c from ED?: No Referrals: Crystal Becah MD [Primary Care Provider] - 1-2 days Time of Disposition: 00:49
[2018-10-21 23:34] LABS: Anisocytosis Slight; Basophils % (A) 0 %; Eosinophils # (A) 0.2 k/uL (0-0.7); Eosinophils % (A) 3 %; HCT 32.2 % (34.0-46.0); HGB 10.7 gm/dL (11.4-16.0); Lymphocytes % (A) 18 %; MCH 27.1 pg (25.0-35.0); MCHC 33.1 g/dL (31.0-37.0); MCV 81.8 fL (80.0-100.0); Mean Platelet Volume 8.2; Monocytes # (A) 0.3 k/uL (0-1.0); Monocytes % (A) 5 %; Neutrophils % (A) 73 %; Platelet Count 206 k/uL (150-450); RBC 3.94 m/uL (3.80-5.40); RDW 16.2 % (11.5-15.5); WBC 5.5 k/uL (3.8-10.6)
[2018-10-21 23:46] LABS: ALT 39 U/L (9-52); AST 21 U/L (14-36); Albumin 3.6 g/dL (3.5-5.0); Alkaline Phosphatase 70 U/L (38-126); Anion Gap 6 mmol/L; Blood Urea Nitrogen 15 mg/dL (7-17); C Reactive Protein 7.8 mg/L (<10.0); Calcium 8.7 mg/dL (8.4-10.2); Carbon Dioxide 24 mmol/L (22-30); Chloride 109 mmol/L (98-107); Glucose 89 mg/dL (74-99); Potassium 4.3 mmol/L (3.5-5.1); Sodium 139 mmol/L (137-145); Total Bilirubin 0.3 mg/dL (0.2-1.3); Total Protein 6.5 g/dL (6.3-8.2)
--- NOTE | 2018-10-21 23:55 | XR ---
EXAMINATION TYPE: XR tibia fibula LT DATE OF EXAM: 10/21/2018 COMPARISON: 10/14/2018 HISTORY: Limb swelling TECHNIQUE: 2 views FINDINGS: There is a left knee prosthesis. There is a amputation at the mid shaft of the tibia. There is extensive soft tissue calcification around the stump. Prosthesis components appear in anatomic po sition. I see no focal bone destruction. There is no fracture. IMPRESSION: No acute abnormality of the left tibia and fibula. No change compared to last exam. No si gn of osteomyelitis.
--- NOTE | 2018-10-21 23:56 | XR ---
EXAMINATION TYPE: XR chest 2V DATE OF EXAM: 10/21/2018 COMPARISON: NONE HISTORY: Limb swelling. Chest pain TECHNIQUE: Frontal and lateral views of the chest are obtained. FINDINGS: Heart and mediastinum are normal. Lungs are clear. Diaphragm is normal. Bony thorax appear s normal. IMPRESSION: Normal chest.
[2018-10-22 00:53] LABS: Appearance,Urine Cloudy (Clear); Bilirubin,Urine Negative (Negative); Blood,Urine Negative (Negative); Color,Urine Yellow; Glucose,Urine (UA) Negative (Negative); Hyaline Casts,Urine 1 /lpf (0-2); Ketones,Urine Negative (Negative); Leukocyte Esterase,Urine Negative (Negative); Mucus,Urine Occasional /hpf; Nitrite,Urine Negative (Negative); PH, Urine 6.5 (5.0-8.0); Protein,Urine Trace (Negative); RBC,Urine 1 /hpf (0-5); Specific Gravity,Urine 1.022 (1.001-1.035); Squamous Epithelial Cell,Urine 10 /hpf (0-4); WBC,Urine 1 /hpf (0-5)
[2018-10-22] MEDS ORDERED: CEPHALEXIN 500MG STARTER PACK 4 CAP BTL PO STA (01:16)
[2018-10-22] MEDS ORDERED: ACET/COD 300 MG/30 MG STARTER PACK 6 TAB BTL PO STA (01:17)
[2018-10-22 01:46] VITALS: BP 151/104; PULSE 77
== END 2018-10-22 01:44 | disposition home or self-care (01) ==
LOC: EC 22:15
DX: M79.89 Other specified soft tissue disorders (principal); T87.89 Other complications of amputation stump; J45.909 Unspecified asthma, uncomplicated; M19.90 Unspecified osteoarthritis, unspecified site; F31.9 Bipolar disorder, unspecified; F41.9 Anxiety disorder, unspecified; F17.200 Nicotine dependence, unspecified, uncomplicated; Z79.899 Other long term (current) drug therapy; Z88.5 Allergy status to narcotic agent; Z88.6 Allergy status to analgesic agent; Z88.0 Allergy status to penicillin; Z88.8 Allergy status to other drugs, medicaments and biological substances; Z96.652 Presence of left artificial knee joint; Z89.512 Acquired absence of left leg below knee
CPT/HCPCS: 36415; 83880; 80053; 83605; 85025; 86140; 81001; 87040; 73590; 71046; 99283; 96374; J2270

== ENCOUNTER 2018-12-03 18:30 | Emergency (ER) | payer MEDICARE, OTHER ==
[2018-12-03] MEDS ORDERED: methylPREDNISolone SOD SUCCI 125 MG/2 ML VIAL IM ONE (19:17)
[2018-12-03] MEDS ORDERED: IPRATROPIUM-ALBUTEROL 3 ML NEB INHALATION STA (19:17)
[2018-12-03] MEDS ORDERED: cefTRIAXone 1,000 MG VIAL (IM USE) IM STA (19:18)
[2018-12-03] MEDS ORDERED: PROMETHAZ-COD 6.25-10 MG/5 ML 5 ML CUP PO STA (19:18)
--- NOTE | 2018-12-03 19:37 | XR ---
EXAMINATION TYPE: XR chest 2V DATE OF EXAM: 12/03/2018 COMPARISON: October 21, 2018 HISTORY: Short of breath TECHNIQUE: Frontal and lateral views of the chest are obtained. FINDINGS: Heart and mediastinum are normal. Lungs are clear. Diaphragm is normal. There is no stimul ator in the lower thoracic spine. IMPRESSION: Normal chest. No change.
--- NOTE | 2018-12-03 20:22 | ED ---
URI HPI - General Chief Complaint: Upper Respiratory Infection Stated Complaint: JACKIE,asthma Time Seen by Provider: 12/03/18 19:06 Source: patient, RN notes reviewed, old records reviewed Mode of arrival: ambulatory Limitations: no limitations - History of Present Illness Initial Comments: This Patient is a 38-year-old female who presents emergency department today with cough congestion for the past week. Patient reports she was on a [place]iles for otitis media and URI earlier this week. Patient's symptoms have been worsening despite the antibiotic. She reports she's had multiple asthma attacks in the past few days. Patient states she is a smoker. She denies any recent fevers or chills. - Related Data Home Medications Medication Instructions Recorded Confirmed Butalb/Acetaminophen/Caffeine 1 tab PO BID PRN 10/25/17 04/26/18 [Fioricet 50-300-40 mg Capsule] QUEtiapine XR [SEROquel XR] 200 mg PO DAILY 10/25/17 04/24/18 Ranitidine HCl [Zantac] 150 mg PO BID 04/10/18 04/26/18 Gabapentin [Neurontin] 100 mg PO DAILY 04/24/18 04/24/18 HYDROcodone/APAP 10-325MG [[place] 1 tab PO Q6HR PRN 04/24/18 04/24/18 10-325] Vortioxetine Hydrobromide 10 mg PO DAILY 04/24/18 04/24/18 [Trintellix] Previous Rx's Medication Instructions Recorded Omeprazole 40 mg PO DAILY #60 capsule. 04/26/18 Sucralfate [Carafate] 1 gm PO BID #60 tablet 04/26/18 Cephalexin [Keflex] 500 mg PO Q6HR 7 Days cap 10/22/18 Ipratropium-Albuterol Nebulize 3 ml INHALATION QID #30 neb 12/03/18 [Duoneb 0.5 mg-3 mg/3 ml Soln] Promethazine/Dextromethorphan 5 ml PO QID #120 ml 12/03/18 [Phenergan DM Syrup] predniSONE 50 mg PO DAILY #7 tablet 12/03/18 Allergies Allergy/AdvReac Type Severity Reaction Status Date / Time acetaminophen Allergy Rapid Verified 12/03/18 18:42 [From Tylenol-Codeine #3] Heart Rate codeine phosphate Allergy Rapid Verified 12/03/18 18:42 [From Tylenol-Codeine #3] Heart Rate hydrocortisone Allergy Rash/Hives Verified 12/03/18 18:42 Penicillins Allergy Swelling Verified 12/03/18 18:42 pregabalin [From Lyrica] Allergy Dizziness Verified 12/03/18 18:42 venlafaxine HCl Allergy Rapid Verified 12/03/18 18:42 [From Effexor] Heart Rate Review of Systems ROS Statement: Those systems with pertinent positive or pertinent negative responses have been documented in the HPI. ROS Other: All systems not noted in ROS Statement are negative. Past Medical History Past Medical History: Asthma, Musculoskeletal Disorder, Osteoarthritis (OA) Additional Past Medical History / Comment(s): had blood clot in left hip after replacement 10 yrs. ago, frequent abd. pain History of Any Multi-Drug Resistant Organisms: MRSA Date of last positivie culture/infection: 2007 MDRO Source:: left arm Past Surgical History: Bariatric Surgery, Cholecystectomy, Hysterectomy, O rthopedic Surgery, Tubal Ligation Additional Past Surgical History / Comment(s): lap band then removal of, gastric sleeve, lt hip, multiple hip surgs., lt knee replacement, amputation to lle-bka bunionectomy, spinal cord stimulator, patient had sutures placed in anterior right forearm 03/30/18 due to a fall sustained and arm lacerated on a metal stake Past Anesthesia/Blood Transfusion Reactions: No Reported Reaction Past Psychological History: Anxiety, Bipolar, Depression Smoking Status: Current every day smoker Past Alcohol Use History: Rare Past Drug Use History: None Reported, Marijuana - Past Family History Mother Family Medical History: Cancer General Exam - General Exam Comments Initial Comments: 38-year-old female. Alert and oriented. No distress. Limitations: no limitations General appearance: alert, in no apparent distress Head exam: Present: atraumatic, normocephalic, normal inspection Eye exam: Present: normal appearance, PERRL, EOMI. Absent: scleral icterus, conjunctival injection, periorbital swelling ENT exam: Present: normal exam, mucous membranes moist Neck exam: Present: normal inspection. Absent: tenderness, meningismus, lymphadenopathy Respiratory exam: Present: normal lung sounds bilaterally. Absent: respiratory distress, wheezes, rales, rhonchi, stridor Cardiovascular Exam: Present: regular rate GI/Abdominal exam: Present: soft, normal bowel sounds. Absent: distended, tenderness, guarding, rebound, rigid Extremities exam: Present: normal inspection, full ROM, normal capillary refill. Absent: tenderness, pedal edema, joint swelling, calf tenderness Back exam: Present: normal inspection Neurological exam: Present: alert, oriented X3, CN II-XII intact Psychiatric exam: Present: normal affect, normal mood Skin exam: Present: warm, dry, intact, normal color. Absent: rash Course Vital Signs 12/03/18 12/03/18 12/03/18 18:38 19:49 19:56 Temperature 98.7 F Pulse Rate 98 97 94 Respiratory 20 18 18 Rate Blood Pressure 148/101 O2 Sat by Pulse 99 Oximetry 12/03/18 20:58 Temperature 98.2 F Pulse Rate 90 Respiratory 16 Rate Blood Pressure 162/96 O2 Sat by Pulse 100 Oximetry Disposition Clinical Impression: Bronchitis, Asthma Disposition: HOME SELF-CARE Condition: Good Instructions (If sedation given, give patient instructions): Asthma (ED), Acute Bronchitis (ED) Additional Instructions: Patient advised to follow-up with primary care physician. Patient should return to the emergency department if any alarming signs or symptoms occur. Prescriptions: Ipratropium-Albuterol Nebulize [Duoneb 0.5 mg-3 mg/3 ml Soln] 3 ml INHALATION QID #30 neb Promethazine/Dextromethorphan [Phenergan DM Syrup] 5 ml PO QID #120 ml predniSONE 50 mg PO DAILY #7 tablet Is patient prescribed a controlled substance at d/c from ED?: No Referrals: Crystal Beach MD [Primary Care Provider] - 1-2 days Time of Disposition: 21:08
[2018-12-03 21:01] VITALS: BP 162/96; PULSE 90; RESP 16
[2018-12-03 21:53] VITALS: TEMP 98.3
== END 2018-12-03 21:45 | disposition home or self-care (01) ==
LOC: EC 18:30
DX: J45.909 Unspecified asthma, uncomplicated (principal); M19.90 Unspecified osteoarthritis, unspecified site; F31.9 Bipolar disorder, unspecified; F17.200 Nicotine dependence, unspecified, uncomplicated; Z79.899 Other long term (current) drug therapy; Z88.5 Allergy status to narcotic agent; Z88.6 Allergy status to analgesic agent; Z88.0 Allergy status to penicillin; Z88.8 Allergy status to other drugs, medicaments and biological substances; Z98.84 Bariatric surgery status; Z96.652 Presence of left artificial knee joint; Z89.512 Acquired absence of left leg below knee
CPT/HCPCS: 94640; 71046; 99285; 96372 ×2; J2930; J0696

== ENCOUNTER 2018-12-07 01:16 | Emergency (ER) | payer MEDICARE, OTHER ==
--- NOTE | 2018-12-07 01:18 | ED ---
General Adult HPI - General Stated complaint: weakness Time Seen by Provider: 12/07/18 01:17 - History of Present Illness Initial comments: Shaista is a 38-year-old female presents to the emergency department today for evaluation of head pain after a fall at home. Patient reports that she took her nightly medications including muscle relaxer, gabapentin and Seroquel, she then ambulated to the restroom. She reports she was feeling unsteady on her feet, she reached out to use the bathroom counter to steady herself she missed the counter and fell striking the left side of her head on the countertop. She doesn't believe she lost consciousness she did note a bruise to the left side of her head which prompted her roommate called 911 for evaluation. - Related Data Home Medications Medication Instructions Recorded Confirmed Butalb/Acetaminophen/Caffeine 1 tab PO BID PRN 10/25/17 04/26/18 [Fioricet 50-300-40 mg Capsule] QUEtiapine XR [SEROquel XR] 200 mg PO DAILY 10/25/17 04/24/18 Ranitidine HCl [Zantac] 150 mg PO BID 04/10/18 04/26/18 Gabapentin [Neurontin] 100 mg PO DAILY 04/24/18 04/24/18 HYDROcodone/APAP 10-325MG [[place] 1 tab PO Q6HR PRN 04/24/18 04/24/18 10-325] Vortioxetine Hydrobromide 10 mg PO DAILY 04/24/18 04/24/18 [Trintellix] Previous Rx's Medication Instructions Recorded Omeprazole 40 mg PO DAILY #60 capsule. 04/26/18 Sucralfate [Carafate] 1 gm PO BID #60 tablet 04/26/18 Cephalexin [Keflex] 500 mg PO Q6HR 7 Days cap 10/22/18 Ipratropium-Albuterol Nebulize 3 ml INHALATION QID #30 neb 12/03/18 [Duoneb 0.5 mg-3 mg/3 ml Soln] Promethazine/Dextromethorphan 5 ml PO QID #120 ml 12/03/18 [Phenergan DM Syrup] predniSONE 50 mg PO DAILY #7 tablet 12/03/18 Allergies Allergy/AdvReac Type Severity Reaction Status Date / Time acetaminophen Allergy Rapid Verified 12/07/18 01:26 [From Tylenol-Codeine #3] Heart Rate codeine phosphate Allergy Rapid Verified 12/07/18 01:26 [From Tylenol-Codeine #3] Heart Rate hydrocortisone Allergy Rash/Hives Verified 12/07/18 01:26 Penicillins Allergy Swelling Verified 12/07/18 01:26 pregabalin [From Lyrica] Allergy Dizziness Verified 12/07/18 01:26 venlafaxine HCl Allergy Rapid Verified 12/07/18 01:26 [From Effexor] Heart Rate Review of Systems ROS Statement: Those systems with pertinent positive or pertinent negative responses have been documented in the HPI. ROS Other: All systems not noted in ROS Statement are negative. Past Medical History Past Medical History: Asthma, Musculoskeletal Disorder, Osteoarthritis (OA) Additional Past Medical History / Comment(s): had blood clot in left hip after replacement 10 yrs. ago, frequent abd. pain History of Any Multi-Drug Resistant Organisms: MRSA Date of last positivie culture/infection: 2007 MDRO Source:: left arm Past Surgical History: Bariatric Surgery, Cholecystectomy, Hysterectomy, Orthopedic Surgery, Tubal Ligation Additional Past Surgical History / Comment(s): lap band then removal of, gastric sleeve, lt hip, multiple hip surgs., lt knee replacement, amputation to lle-bka bunionectomy, spinal cord stimulator, patient had sutures placed in anterior right forearm 03/30/18 due to a fall sustained and arm lacerated on a metal stake Past Anesthesia/Blood Transfusion Reactions: No Reported Reaction Past Psychological History: Anxiety, Bipolar, Depression Smoking Status: Current every day smoker Past Alcohol Use History: Rare Past Drug Use History: None Reported, Marijuana - Past Family History Mother Family Medical History: Cancer General Exam - General Exam Comments Initial Comments: Physical Exam GENERAL: Obese HENT: Normocephalic Hematoma to left tempoparietal scalp EYES: PERRL, EOMI PULMONARY: Unlabored respirations. No audible rales rhonchi or wheezing was noted. CARDIOVASCULAR: There is a regular rate and rhythm without any murmurs gallops or rubs. ABDOMEN: Obese, Soft and nontender with normal bowel sounds. SKIN: Contusion as noted above : Deferred NEUROLOGIC: Sleepy, wakes to voice or touch Patient is alert and oriented x3. Moving all extremities spontaneously MUSCULOSKELETAL: Normal extremities with adequate strength and full range of motion. No lower extremity swelling or edema. No calf tenderness. PSYCHIATRIC: Normal psychiatric evaluation. Limitations: no limitations Course Vital Signs 12/07/18 12/07/18 01:22 03:05 Temperature 98 F Pulse Rate 91 62 Respiratory 18 15 Rate Blood Pressure 126/74 118/70 O2 Sat by Pulse 98 95 Oximetry Medical Decision Making - Medical Decision Making The patient was seen and evaluated, hx obtained from patient, roommate did not w itness fall Patient took mutliple sedating medications then fell when standing from the toilet, struck left side of face/head on counter, no LOC Patient is drowsy, I suspect this is related to polypharmacy however given history of head trauma will obtain a CT Labs with worsening chronic anemia, patient is following with OB Gyne for vaginal bleeding CT head with no acute findings Patient resting comfortably, was updated on findings, is comfortable with plan for discharge home Questions pertaining care were answered return parameters were discussed and the patient was discharged home in stable condition - Lab Data Result diagrams: 12/07/18 01:45 12/07/18 01:45 Lab Results 12/07/18 12/07/18 Range/Units 01:45 01:45 WBC 1.5 L (3.8-10.6) k/uL RBC 3.68 L (3.80-5.40) m/uL Hgb 9.4 L (11.4-16.0) gm/dL Hct 30.6 L (34.0-46.0) % MCV 83.1 (80.0-100.0) fL MCH 25.5 (25.0-35.0) pg MCHC 30.7 L (31.0-37.0) g/dL RDW 16.1 H (11.5-15.5) % Plt Count 132 L (150-450) k/uL Neutrophils % 75 % Lymphocytes % 15 % Monocytes % 7 % Eosinophils % 1 % Basophils % 0 % Neutrophils # 1.2 L (1.3-7.7) k/uL Lymphocytes # 0.2 L (1.0-4.8) k/uL Monocytes # 0.1 (0-1.0) k/uL Eosinophils # 0.0 (0-0.7) k/uL Basophils # 0.0 (0-0.2) k/uL Hypochromasia Slight Anisocytosis Slight Sodium 137 (137-145) mmol/L Potassium 3.2 L (3.5-5.1) mmol/L Chloride 108 H (98-107) mmol/L Carbon Dioxide 19 L (22-30) mmol/L Anion Gap 10 mmol/L BUN 12 (7-17) mg/dL Creatinine 0.66 (0.52-1.04) mg/dL Est GFR (CKD-EPI)AfAm >90 (>60 ml/min/1.73 sqM) Est GFR (CKD-EPI)NonAf >90 (>60 ml/min/1.73 sqM) Glucose 184 H (74-99) mg/dL Calcium 8.3 L (8.4-10.2) mg/dL Total Bilirubin 0.2 (0.2-1.3) mg/dL AST 40 H (14-36) U/L ALT 48 (9-52) U/L Alkaline Phosphatase 80 (38-126) U/L Total Protein 6.3 (6.3-8.2) g/dL Albumin 3.2 L (3.5-5.0) g/dL Disposition Clinical Impression: Fall Disposition: HOME SELF-CARE Instructions (If sedation given, give patient instructions): Concussion (ED) Is patient prescribed a controlled substance at d/c from ED?: No Referrals: Crystal Beach MD [Primary Care Provider] - 1-2 days Time of Disposition: 03:19
[2018-12-07] MEDS ORDERED: SODIUM CHLORIDE 0.9% 1,000 ML IV ONE (01:33)
[2018-12-07 02:37] LABS: Anisocytosis Slight; Basophils % (A) 0 %; Eosinophils % (A) 1 %; HCT 30.6 % (34.0-46.0); HGB 9.4 gm/dL (11.4-16.0); Hypochromasia Slight; Lymphocytes # (A) 0.2 k/uL (1.0-4.8); Lymphocytes % (A) 15 %; MCH 25.5 pg (25.0-35.0); MCHC 30.7 g/dL (31.0-37.0); MCV 83.1 fL (80.0-100.0); Mean Platelet Volume 9.6; Monocytes # (A) 0.1 k/uL (0-1.0); Monocytes % (A) 7 %; Neutrophils # (A) 1.2 k/uL (1.3-7.7); Neutrophils % (A) 75 %; Platelet Count 132 k/uL (150-450); RBC 3.68 m/uL (3.80-5.40); RDW 16.1 % (11.5-15.5); WBC 1.5 k/uL (3.8-10.6)
--- NOTE | 2018-12-07 02:47 | CT ---
EXAM: CT Head Without Intravenous Contrast CLINICAL HISTORY: Fall. TECHNIQUE: Axial computed tomography images of the head/brain without intravenous contrast. CTDI is 60 mGy and DLP is 1366 mGy-cm. This CT exam was performed using one or more of the following dose reduction techniques: automated exposure control, adjustment of the mA and/or kV according to patient size, and/or use of iterative reconstruction technique. COMPARISON: Prior report from 2012. Prior images are not available for direct comparison. FINDINGS: Brain: No acute intracranial hemorrhage. No mass effect or midline shift. Ventricles: Unremarkable. No ventriculomegaly. Bones/joints: Unremarkable. No acute fracture. Soft tissues: Extracranial soft tissue swelling. Sinuses: Mild chronic sinus disease. Mastoid air cells: Unremarkable as visualized. No mastoid effusion. IMPRESSION: No acute intracranial hemorrhage. Extracranial soft tissue swelling. No acute skull fractures. EXAM: CT Cervical Spine Without Intravenous Contrast CLINICAL HISTORY: Fall. TECHNIQUE: Axial computed tomography images of the cervical spine without intravenous contrast. CTDI is 60 mGy and DLP is 1366 mGy-cm. This CT exam was performed using one or more of the following dose reduction techniques: automated exposure control, adjustment of the mA and/or kV according to patient size, and/or use of iterative reconstruction technique. COMPARISON: None. FINDINGS: Vertebrae: Unremarkable. No acute fracture. Discs/spinal canal/neural foramina: No acute findings. No spinal canal stenosis. Soft tissues: Unremarkable. Esophagus: Partially visualized dilated esophagus with air-fluid level. IMPRESSION: No acute fracture. Partially visualized dilated esophagus with air-fluid level. Recommend further nonemergent workup.
[2018-12-07 03:01] LABS: ALT 48 U/L (9-52); AST 40 U/L (14-36); Albumin 3.2 g/dL (3.5-5.0); Alkaline Phosphatase 80 U/L (38-126); Anion Gap 10 mmol/L; Blood Urea Nitrogen 12 mg/dL (7-17); Calcium 8.3 mg/dL (8.4-10.2); Carbon Dioxide 19 mmol/L (22-30); Chloride 108 mmol/L (98-107); Glucose 184 mg/dL (74-99); Potassium 3.2 mmol/L (3.5-5.1); Sodium 137 mmol/L (137-145); Total Bilirubin 0.2 mg/dL (0.2-1.3); Total Protein 6.3 g/dL (6.3-8.2)
[2018-12-07 03:05] VITALS: PULSE 62
[2018-12-07 03:51] VITALS: BP 119/74; RESP 19; TEMP 98.3
== END 2018-12-07 03:42 | disposition home or self-care (01) ==
LOC: EC 01:16
DX: M19.90 Unspecified osteoarthritis, unspecified site (principal); F31.9 Bipolar disorder, unspecified; F41.9 Anxiety disorder, unspecified; F17.200 Nicotine dependence, unspecified, uncomplicated; Z86.14 Personal history of Methicillin resistant Staphylococcus aureus infection; Z79.899 Other long term (current) drug therapy; Z88.0 Allergy status to penicillin; Z88.5 Allergy status to narcotic agent; Z88.6 Allergy status to analgesic agent; Z88.8 Allergy status to other drugs, medicaments and biological substances; Z96.652 Presence of left artificial knee joint
CPT/HCPCS: 36415; 70450; 72125; 80053; 85025; 96360; 99285

== ENCOUNTER → 2019-10-08 | Outpatient (CLI) | payer MEDICARE, OTHER ==
[2019-10-08 14:19] VITALS: BP 152/92; PULSE 90; TEMP 98.1; BMI 37.1
--- NOTE | 2019-10-08 14:38 | P.HPBAR ---
Bariatric H&P - History & Physicial H&P Date: 10/08/19 History & Physicial: Visit/CC: celina Patient initial contact: Initial weight: 158.757 kg Initial weight in pounds: 350.00 Height: 5 ft 5 in Initial BMI: 58.2 Last weight: Current weight: 101.333 kg Current weight in pounds: 223.40 Current BMI: 37.1 [place] body weight (based on NIH guidelines): 56.699 kg Excess body weight loss: 56.2% The patient is a 39 year-old F who presents for Bariatric Assessment. Patient has complaints of GERD. She's lost 3 pounds the last several months. Past Medical History Past Medical History: Asthma, Musculoskeletal Disorder, Osteoarthritis (OA), Pn eumonia Additional Past Medical History / Comment(s): had blood clot in left hip after replacement 10 yrs. ago, frequent abd. pain, pneumonia (December 2018) History of Any Multi-Drug Resistant Organisms: MRSA Year Discovered:: 2007 MDRO Source:: left arm Past Surgical History: Bariatric Surgery, Cholecystectomy, Hysterectomy, Orthopedic Surgery, Tubal Ligation Additional Past Surgical History / Comment(s): lap band then removal of, gastric sleeve, lt hip, multiple hip surgs., lt knee replacement, amputation to lle-bka bunionectomy, spinal cord stimulator, patient had sutures placed in anterior right forearm 03/30/18 due to a fall sustained and arm lacerated on a metal stake, Left leg amputated stump operated on September 17, 2019. Past Anesthesia/Blood Transfusion Reactions: No Reported Reaction Past Psychological History: Anxiety, Bipolar, Depression Smoking Status: Current every day smoker Past Alcohol Use History: Rare Additional Past Alcohol Use History / Comment(s): <1/2ppd on & off since age of 14 Past Drug Use History: None Reported, Marijuana Additional Drug Use History / Comment(s): occasional use - Past Family History Mother Family Medical History: Cancer Surgical - Exam Vital Signs Temp Pulse BP 98.1 F 90 152/92 10/08/19 14:08 10/08/19 14:08 10/08/19 14:08 - General well developed, well nourished, no distress - Eyes PERRL - ENT normal pinna - Abdomen Abdomen: soft, non tender Bariatric Assessment & Plan Plan: GERD. Patient be scheduled for EGD. Bariatric Checklist Checklist: Plan: Checklist: EGD: 1. Hiatal hernia: 2. H. Pylori: HgbA1c: Vitamin D: Smoking: Current every day smoker Primary care physician referral: dr conte Psychiatry clearance: Cardiology clearance: Sleep study: Diet journal: VTE risk score: VTE risk level: Rehab needs at discharge:
== END | disposition home or self-care (01) ==
LOC: BARWHC3 13:54
PROVIDERS: ATTEND Surgery
DX: K21.9 Gastro-esophageal reflux disease without esophagitis (principal); F17.200 Nicotine dependence, unspecified, uncomplicated; Z90.49 Acquired absence of other specified parts of digestive tract; Z98.84 Bariatric surgery status
CPT/HCPCS: 99211

== ENCOUNTER 2019-10-23 08:12 | Day surgery (SDC) | payer MEDICARE, OTHER ==
[2019-10-18 15:17] VITALS: BMI 33.3
[~2019-10-23 08:12] MED LIST changes: -LIDOCAINE 1% 20 ML VIAL (10MG/ML) FOR IV START INTRADERMA PRN; -MIDAZOLAM 2 MG/2 ML VIAL IV PRN
[2019-10-23 08:38] VITALS: RESP 16
[2019-10-23] MEDS ORDERED: PROPOFOL 10 MG/ML 20 ML VIAL IV ONE (08:57)
--- NOTE | 2019-10-23 09:00 | P.GSHP ---
History of Present Illness H&P Date: 10/23/19 Chief Complaint: GERD This a 39-year-old female whose history of GERD. Patient has previous sleeve gastrectomy. She presents today for EGD. Past Medical History Past Medical History: Asthma, Deep Vein Thrombosis (DVT), GERD/Reflux, M usculoskeletal Disorder, Osteoarthritis (OA), Pneumonia Additional Past Medical History / Comment(s): had blood clot in left hip after replacement 10 yrs. ago, frequent abd. pain, pneumonia (December 2018). HAS LT LEG PROSTHESIS History of Any Multi-Drug Resistant Organisms: MRSA Date of last positivie culture/infection: 2007 MDRO Source:: left arm Past Surgical History: Bariatric Surgery, Cholecystectomy, Hysterectomy, Joint Replacement, Orthopedic Surgery, Tubal Ligation Additional Past Surgical History / Comment(s): lap band then removal of, gastric sleeve, lt hip, multiple hip surgs., lt knee replacement, lt hip tka, amputation to lle-bka bunionectomy, spinal cord stimulator, patient had sutures placed in anterior right forearm 03/30/18 due to a fall sustained and arm lacerated on a metal stake, Left leg amputated stump operated on September 17, 2019. Past Anesthesia/Blood Transfusion Reactions: No Reported Reaction Smoking Status: Current every day smoker - Past Family History Mother Family Medical History: Cancer Medications and Allergies Home Medications Medication Instructions Recorded Confirmed Type QUEtiapine XR [SEROquel XR] 200 mg PO DAILY 10/25/17 10/18/19 History Gabapentin [Neurontin] 100 mg PO BID 04/24/18 10/18/19 History HYDROcodone/APAP 10-325MG [[place] 1 tab PO Q6HR PRN 04/24/18 10/18/19 History 10-325] Omeprazole 40 mg PO DAILY #60 capsule. 04/26/18 10/18/19 Rx Cetirizine HCl [Zyrtec] 10 mg PO DAILY 10/08/19 10/18/19 History Cyclobenzaprine [Flexeril] 10 mg PO TID 10/08/19 10/18/19 History Loratadine [Claritin] 10 mg PO DAILY 10/08/19 10/18/19 History Vortioxetine Hydrobromide 20 mg PO DAILY 10/08/19 10/18/19 History [Trintellix] tiZANidine [Zanaflex] 4 mg PO TID 10/08/19 10/18/19 History Allergies Allergy/AdvReac Type Severity Reaction Status Date / Time acetaminophen Allergy Rapid Verified 10/18/19 15:07 [From Tylenol-Codeine #3] Heart Rate codeine phosphate Allergy Rapid Verified 10/18/19 15:07 [From Tylenol-Codeine #3] Heart Rate hydrocortisone Allergy Rash/Hives Verified 10/18/19 15:07 Penicillins Allergy Swelling Verified 10/18/19 15:07 pregabalin [From Lyrica] Allergy Dizziness Verified 10/18/19 15:07 venlafaxine HCl Allergy Rapid Verified 10/18/19 15:07 [From Effexor] Heart Rate Surgical - Exam Vital Signs Pulse Resp BP Pulse Ox 80 16 126/73 99 10/23/19 08:37 10/23/19 08:37 10/23/19 08:37 10/23/19 08:37 - General well developed, well nourished, no distress - Eyes PERRL - ENT normal pinna - Neck no masses - Respiratory normal expansion - Cardiovascular Rhythm: regular - Abdomen Abdomen: soft, non tender Assessment and Plan Assessment: GERD. We'll perform EGD.
--- NOTE | 2019-10-23 09:09 | P.OP ---
Date of Procedure: 10/23/19 Preoperative Diagnosis: GERD Postoperative Diagnosis: Antral gastritis Procedure(s) Performed: EGD Anesthesia: MAC Surgeon: Shankar Frausto Pathology: other (Antrum) Condition: stable Disposition: PACU Description of Procedure: The patient's placed on the endoscopy table in the lateral position. She rece ived IV sedation. The gastroscope placed oropharynx and passed in the esophagus and stomach. Scope was then placed through the pylorus. The first and second portion of the duodenum appeared normal. Scope was then brought back the antrum and this appeared minimally inflamed. A biopsies performed. Scope was then brought back through the gastric sleeve. There is no evidence of any scarring or obstruction of the gastric sleeve. The GE junction was at 40 cm. There is no stricture sleeve. The distal esophagus appeared normal. The proximal esophagus appeared normal. Scope was withdrawn for patient.
[2019-10-23 09:42] VITALS: BP 120/86; PULSE 75
== END 2019-10-23 09:50 | disposition home or self-care (01) ==
LOC: ORWHC2ENDO 08:12
PROVIDERS: ATTEND Surgery
DX: K29.50 Unspecified chronic gastritis without bleeding (principal); K21.9 Gastro-esophageal reflux disease without esophagitis; J45.909 Unspecified asthma, uncomplicated; G47.33 Obstructive sleep apnea (adult) (pediatric); F17.210 Nicotine dependence, cigarettes, uncomplicated; F32.9 Major depressive disorder, single episode, unspecified; E66.9 Obesity, unspecified; D64.9 Anemia, unspecified; M19.90 Unspecified osteoarthritis, unspecified site; Z68.33 Body mass index [BMI] 33.0-33.9, adult; Z90.710 Acquired absence of both cervix and uterus; Z88.1 Allergy status to other antibiotic agents; Z86.14 Personal history of Methicillin resistant Staphylococcus aureus infection; Z86.718 Personal history of other venous thrombosis and embolism; Z88.6 Allergy status to analgesic agent; Z88.0 Allergy status to penicillin; Z88.5 Allergy status to narcotic agent; Z88.8 Allergy status to other drugs, medicaments and biological substances; Z87.01 Personal history of pneumonia (recurrent); Z98.51 Tubal ligation status; Z90.49 Acquired absence of other specified parts of digestive tract; Z98.84 Bariatric surgery status; Z96.652 Presence of left artificial knee joint; Z96.642 Presence of left artificial hip joint; Z89.512 Acquired absence of left leg below knee; Z79.899 Other long term (current) drug therapy
CPT/HCPCS: 88305; 43239; J2704

== ENCOUNTER 2020-06-13 18:51 | Emergency (ER) | payer MEDICARE, OTHER ==
[2020-06-13] MEDS ORDERED: fentaNYL (PF) 50 MCG/ML 2 ML AMP IVP STA (18:55)
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
[2020-06-13 19:14] LABS: Basophils % (A) 0 %; Eosinophils # (A) 0.1 k/uL (0-0.7); Eosinophils % (A) 1 %; Lymphocytes # (A) 0.9 k/uL (1.0-4.8); Lymphocytes % (A) 10 %; MCH 26.8 pg (25.0-35.0); MCHC 32.2 g/dL (31.0-37.0); Mean Platelet Volume 8.5; Monocytes # (A) 0.4 k/uL (0-1.0); Monocytes % (A) 4 %; Neutrophils # (A) 7.3 k/uL (1.3-7.7); Neutrophils % (A) 83 %; Platelet Count 181 k/uL (150-450); RDW 14.8 % (11.5-15.5); WBC 8.7 k/uL (3.8-10.6)
[2020-06-13 19:27] LABS: ALT 13 U/L (4-34); AST 31 U/L (14-36); African American GFR (CKD) >90 (>60 ml/min/1.73 sqM); Albumin 3.6 g/dL (3.5-5.0); Alcohol <10 mg/dL; Alkaline Phosphatase 66 U/L (38-126); Anion Gap 5 mmol/L; Blood Urea Nitrogen 15 mg/dL (7-17); Calcium 8.3 mg/dL (8.4-10.2); Carbon Dioxide 24 mmol/L (22-30); Chloride 109 mmol/L (98-107); Glucose 108 mg/dL (74-99); Non-African American GFR(CKD) >90 (>60 ml/min/1.73 sqM); Potassium 4.5 mmol/L (3.5-5.1); Sodium 138 mmol/L (137-145); Total Bilirubin 0.4 mg/dL (0.2-1.3); Total Protein 6.4 g/dL (6.3-8.2)
[2020-06-13 19:37] LABS: INR 0.9 (<1.2); Partial Thromboplastin Time 22.1 sec (22.0-30.0); Prothrombin Time 9.7 sec (9.0-12.0)
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
== END 2020-06-13 20:30 | disposition other institution (70) ==
LOC: EC 18:51
DX: S73.005A Unspecified dislocation of left hip, initial encounter (principal); S22.20XA Unspecified fracture of sternum, initial encounter for closed fracture; S26.91XA Contusion of heart, unspecified with or without hemopericardium, initial encounter; S22.031A Stable burst fracture of third thoracic vertebra, initial encounter for closed fracture; S12.100A Unspecified displaced fracture of second cervical vertebra, initial encounter for closed fracture; S12.600A Unspecified displaced fracture of seventh cervical vertebra, initial encounter for closed fracture; R79.89 Other specified abnormal findings of blood chemistry; Z79.899 Other long term (current) drug therapy; Z88.6 Allergy status to analgesic agent; Z88.5 Allergy status to narcotic agent; Z88.0 Allergy status to penicillin; Z88.8 Allergy status to other drugs, medicaments and biological substances; Z96.652 Presence of left artificial knee joint; Z96.642 Presence of left artificial hip joint; Y92.410 Unspecified street and highway as the place of occurrence of the external cause; V89.2XXA Person injured in unspecified motor-vehicle accident, traffic, initial encounter
CPT/HCPCS: 93005; 86900; 86901; 80053; 84484; 85025; 85610; 85730; 86850; 80320; 72170; 71045; 72125; 70450; 71260; 74177; 99285; 96374; J3010; Q9967

== ENCOUNTER → 2022-09-03 | Outpatient (CLI) | payer MEDICARE, OTHER ==
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
== END | disposition home or self-care (01) ==
LOC: RADMRIMAIN 14:26
PROVIDERS: ATTEND Psychiatry & Neurology Vascular Neurology
DX: M47.816 Spondylosis without myelopathy or radiculopathy, lumbar region (principal); M48.061 Spinal stenosis, lumbar region without neurogenic claudication; M51.34 Other intervertebral disc degeneration, thoracic region; M99.73 Connective tissue and disc stenosis of intervertebral foramina of lumbar region; M54.2 Cervicalgia
CPT/HCPCS: 72141; 72148

== ENCOUNTER 2023-11-25 08:03 | Day surgery (SDC) | payer MEDICARE, OTHER ==
[2023-11-25] MEDS: diazePAM 5 MG TAB PO STA (08:30)
[2023-11-25 08:57] VITALS: TEMP 97.4
[2023-11-25 10:05] VITALS: RESP 12
[2023-11-25] MEDS: HYDROcodone/APAP 10-325MG 1 EACH TAB PO ONE (12:21)
--- NOTE | 2023-11-25 12:26 | FL ---
EXAMINATION TYPE: FL myelogram 2 or more regions (cervical and thoracic) DATE OF EXAM: 11/25/2023 COMPARISON: NONE HISTORY: 43-year-old female M54.10, M54.2 A lumbar approach was utilized for intrathecal contrast injection. Informed consent was obtained and all the patient's questions were answered. The L3-L4 level was localized under fluoroscopy. Standar d sterile technique was utilized as well as appropriate local anesthesia 1% Lidocaine. A standard 22 -gauge spinal needle was introduced into the thecal sac under fluoroscopic guidance and 10 mL's of Is ovue-M 300 was injected. The patient tolerated the procedure well and left the department in stable condition. The needle was removed, hemostasis obtained, and a dressing placed. Trendelenburg positio n to promote passage of contrast to the cervical spine. Minimal prominent posterior fusion hardware a cross the cervicothoracic spine. CT myelography is to follow. Total fluoroscopy time: 1 minute 2 seconds. Total images: 7. Total DAP: 10 mGycm2 IMPRESSION: Successful myelography via lumbar access for CT cervical and thoracic myelogram to follow .
[2023-11-25] MEDS: HYDROcodone/APAP 10-325MG 1 EACH TAB ONE (12:40)
[2023-11-25 14:02] VITALS: BP 126/82; PULSE 66
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
== END 2023-11-25 13:53 | disposition home or self-care (01) ==
LOC: RADPROMAIN 08:03
PROVIDERS: ATTEND Orthopaedic Surgery
DX: M25.78 Osteophyte, vertebrae (principal); Z88.0 Allergy status to penicillin; Z88.1 Allergy status to other antibiotic agents; Z88.5 Allergy status to narcotic agent; Z88.8 Allergy status to other drugs, medicaments and biological substances
CPT/HCPCS: 62305; 72129; 72126; Q9967

== ENCOUNTER → 2023-12-13 | Outpatient (CLI) | payer MEDICARE, OTHER ==
[2023-12-13 15:28] VITALS: BP 172/114; PULSE 68; RESP 16; TEMP 97.9
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
== END ==
LOC: 3 N SLEEP 14:13 → MERGE 14:20
PROVIDERS: ATTEND Internal Medicine Critical Care Medicine
DX: G47.10 Hypersomnia, unspecified (principal); F51.04 Psychophysiologic insomnia; R53.82 Chronic fatigue, unspecified; G43.909 Migraine, unspecified, not intractable, without status migrainosus; E03.9 Hypothyroidism, unspecified; G89.29 Other chronic pain; F17.200 Nicotine dependence, unspecified, uncomplicated; Z96.653 Presence of artificial knee joint, bilateral; Z89.612 Acquired absence of left leg above knee; Z86.718 Personal history of other venous thrombosis and embolism; Z98.1 Arthrodesis status; Z87.828 Personal history of other (healed) physical injury and trauma; Z79.890 Hormone replacement therapy; Z88.1 Allergy status to other antibiotic agents; Z88.5 Allergy status to narcotic agent; Z88.0 Allergy status to penicillin; Z88.8 Allergy status to other drugs, medicaments and biological substances
CPT/HCPCS: 99211

== ENCOUNTER 2024-01-01 19:34 | Emergency (ER) | payer MEDICARE ==
[2024-01-01 19:53] VITALS: RESP 18; TEMP 98.2
--- NOTE | 2024-01-01 20:33 | ED ---
Back Pain [facility] - General Chief Complaint: Back Pain/Injury Stated Complaint: headache back pain stump site pain Time Seen by Provider: 01/01/24 19:50 Source: patient, RN notes reviewed Limitations: physical limitation - History of Present Illness Initial Comments: Is a 43-year-old female with a past medical history of back reconstructive surgery who presents emergency department chief complaint of back pain. Patient states that she has been suffering with worsening back pain over the past 2 weeks. States that she has visited [place] emergency department a few times within the past 2 weeks due to worsening pain, she was given IV pain medication. Patient follows with Dr. Tan, states that she has been unable to get a hold of his office. Patient follows with pain management and has prescribed morphine and Fountain at home. She denies recent falls or trauma, parasthesias or motor deficits. - Related Data Home Medications Medication Instructions Recorded Confirmed QUEtiapine XR [SEROquel XR] 200 mg PO DAILY 10/25/17 12/13/23 Gabapentin [Neurontin] 100 mg PO BID 04/24/18 11/25/23 HYDROcodone/APAP 10-325MG [[place] 1 tab PO Q6HR PRN 04/24/18 11/25/23 10-325] Cetirizine HCl [Zyrtec] 10 mg PO DAILY 10/08/19 11/25/23 Cyclobenzaprine [Flexeril] 10 mg PO TID 10/08/19 11/25/23 Loratadine [Claritin] 10 mg PO DAILY 10/08/19 11/25/23 Vortioxetine Hydrobromide 20 mg PO DAILY 10/08/19 11/25/23 [Trintellix] tiZANidine [Zanaflex] 4 mg PO TID 10/08/19 11/25/23 Albuterol Inhaler [Ventolin Hfa 1 puff INHALATION QID PRN 11/21/23 11/25/23 Inhaler] Escitalopram [Lexapro] 20 mg PO DAILY 11/21/23 11/25/23 Gabapentin [Neurontin] 100 mg PO BID 11/21/23 12/13/23 Iron 1 tab PO DAILY 11/21/23 12/13/23 Levothyroxine Sodium [Synthroid] 50 mcg PO DAILY 11/21/23 11/25/23 Morphine Sulfate ER [Ms Contin] 15 mg PO Q12HR 11/21/23 12/13/23 Pantoprazole [Protonix] 40 mg PO DAILY 11/21/23 12/13/23 QUEtiapine FUMARATE [SEROquel] 200 mg PO DAILY 11/21/23 11/25/23 oxyCODONE-APAP 10-325MG [Percocet 1 tab PO BID 11/21/23 12/13/23 10-325 mg] tiZANidine [Zanaflex] 4 mg PO Q8HR 11/21/23 11/25/23 Levofloxacin [Levaquin] 250 mg PO DAILY 12/13/23 12/13/23 Previous Rx's Medication Instructions Recorded Omeprazole 40 mg PO DAILY #60 capsule. 04/26/18 Allergies Allergy/AdvReac Type Severity Reaction Status Date / Time acetaminophen Allergy Rapid Verified 01/01/24 19:44 [From Tylenol-Codeine #3] Heart Rate codeine phosphate Allergy Rapid Verified 01/01/24 19:44 [From Tylenol-Codeine #3] Heart Rate hydrocortisone Allergy Rash/Hives Verified 01/01/24 19:44 Penicillins Allergy Swelling Verified 01/01/24 19:44 pregabalin [From Lyrica] Allergy Dizziness Verified 01/01/24 19:44 venlafaxine HCl Allergy Rapid Verified 01/01/24 19:44 [From Effexor] Heart Rate codeine AdvReac Unknown Verified 01/01/24 19:44 [From Tylenol-Codeine #3] venlafaxine [From Effexor] AdvReac Rapid Verified 01/01/24 19:44 Heart Rate Review of Systems ROS Statement: Those systems with pertinent positive or pertinent negative responses have been documented in the HPI. ROS Other: All systems not noted in ROS Statement are negative. Past Medical History Past Medical History: GERD/Reflux, Thyroid Disorder Additional Past Medical History / Comment(s): Congenital hip dislocation at , back pain , headaches History of Any Multi-Drug Resistant Organisms: None Reported Date of last positivie culture/infection: 2007 MDRO Source:: left arm Past Surgical History: Hysterectomy, Orthopedic Surgery, Tubal Ligation Additional Past Surgical History / Comment(s): Neck fusions, 12 hip surgeries, above knee left leg amputation 2022. Past Anesthesia/Blood Transfusion Reactions: No Reported Reaction Past Psychological History: Bipolar, Depression Smoking Status: Former smoker Past Alcohol Use History: None Reported Past Drug Use History: Marijuana - Past Family History Mother Family Medical History: Cancer General Exam Limitations: physical limitation General appearance: alert, in no apparent distress Head exam: Present: atraumatic, normocephalic, normal inspection Eye exam: Present: normal appearance, PERRL, EOMI. Absent: scleral icterus, conjunctival injection, periorbital swelling ENT exam: Present: normal exam, mucous membranes moist Neck exam: Present: normal inspection. Absent: tenderness, meningismus, lymphadenopathy Respiratory exam: Present: normal lung sounds bilaterally. Absent: respiratory distress, wheezes, rales, rhonchi, stridor Cardiovascular Exam: Present: regular rate, normal rhythm, normal heart sounds. Absent: systolic murmur, diastolic murmur, rubs, gallop, clicks GI/Abdominal exam: Present: soft, normal bowel sounds. Absent: distended, tenderness, guarding, rebound, rigid Extremities exam: Present: normal inspection, full ROM, normal capillary refill, other (above knee amputation of left leg). Absent: tenderness, pedal edema, joint swelling, calf tenderness Back exam: Present: tenderness, other (The cervical spine. The area from the previous reconstructive surgery. Patient was noted to have mild tenderness to palpation in addition to active range of motion of neck and back.). Absent: normal inspection, CVA tenderness (R), CVA tenderness (L), muscle spasm Neurological exam: Present: alert, oriented X3, CN II-XII intact Psychiatric exam: Present: normal affect, normal mood Skin exam: Present: warm, dry, intact, normal color. Absent: rash Course Vital Signs 01/01/24 01/01/24 19:44 21:40 Temperature 98.2 F Pulse Rate 77 67 Respiratory 18 18 Rate Blood Pressure 209/117 177/92 O2 Sat by Pulse 96 100 Oximetry Medical Decision Making - Medical Decision Making Was pt. sent in by a medical professional or institution (, PA, PULP SCREEN OPERATOR, urgent care, hospital, or usp...) When possible be specific @ -No Did you speak to anyone other than the patient for history (EMS, parent, family, police, friend...)? What history was obtained from this source @ -No Did you review nursing and triage notes (agree or disagree)? Why? @ -I reviewed and agree with nursing and triage notes Were old charts reviewed (outside hosp., previous admission, EMS record, old EKG, old radiological studies, urgent care reports/EKG's, usp records)? Report findings @ -Patient's previous CT imaging results reviewed showing hardware cervical changes due to previous surgeries. Differential Diagnosis (chest pain, altered mental status, abdominal pain women, abdominal pain men, vaginal bleeding, weakness, fever, dyspnea, syncope, headac he, dizziness, GI bleed, back pain, seizure, CVA, palpatations, mental health, musculoskeletal)? @ -Differential Musculoskeletal Muscular strain, contusion, ligament sprain, fracture, arthritis, septic arthritis, bursitis, cellulitis, muscle spasm, nerve compression, DVT, arterial occlusion, herpes zoster, electrolyte abnormality, tumor.... This is not meant to be in all inclusive list EKG interpreted by me (3pts min.). @ -None X-rays interpreted by me (1pt min.). @ -None done CT interpreted by me (1pt min.). @ -None done U/S interpreted by me (1pt. min.). @ -None done What testing was considered but not performed or refused? (CT, X-rays, U/S, labs)? Why? @ -None What meds were considered but not given or refused? Why? @ -None Did you discuss the management of the patient with other professionals (professionals i.e. , PA, PULP SCREEN OPERATOR, lab, RT, psych nurse, social worker masters, photonics engineer, teacher, commissioned defence force officer, hospice case manager)? Give summary @ -No Was smoking cessation discussed for >3mins.? @ -No Was critical care preformed (if so, how long)? @ -No Were there social determinants of health that impacted care today? How? (Homelessness, low income, unemployed, alcoholism, drug addiction, transportat ion, low edu. Level, literacy, decrease access to med. care, intermediate, rehab)? @ -No Was there de-escalation of care discussed even if they declined (Discuss DNR or withdrawal of care, Hospice)? DNR status @ -No What co-morbidities impacted this encounter? (DM, HTN, Smoking, COPD, CAD, Cancer, CVA, ARF, Chemo, Hep., AIDS, mental health diagnosis, sleep apnea, morbid obesity)? @ -None Was patient admitted / discharged? Hospital course, mention meds given and route, prescriptions, significant lab abnormalities, going to OR and other pertinent info. @ -Charge. 43-year-old female with back pain. On physical examination patient was negative for any acute red flag findings. Due to patient visiting here on emergency center a few times in the past 2 weeks radiographs were deferred at this time, patient was in agreement with this. Discussion with patient, she is requesting pain management. Review of [facility] was that patient was prescribed morphine and Fountain that was filled on 12/12 that were 60 pills each. Discussion with patient at bedside states that she has been using taking her medication more frequently due to increasing pain, therefore medication for pain will not be controlled outpatient at this time with the patient. She is okay with this. Additionally, recommend outpatient call Dr. Goodman Choi's office tomorrow morning for further evaluation. Patient was given IM dose of Dilaudid with relief of pain. Patient stable for discharge. Discussed with Dr. Mcgarry Undiagnosed new problem with uncertain prognosis? @ -No Drug Therapy requiring intensive monitoring for toxicity (Heparin, Nitro, Insulin, Cardizem)? @ -No Were any procedures done? @ -No Diagnosis/symptom? @ -Chronic back pain Acute, or Chronic, or Acute on Chronic? @ -chronic Uncomplicated (without systemic symptoms) or Complicated (systemic symptoms)? @ -uncomplicated Side effects of treatment? @ -No Exacerbation, Progression, or Severe Exacerbation? @ -No Poses a threat to life or bodily function? How? (Chest pain, [place], [place], pneumonia, PE, COPD, DKA, ARF, appy, cholecystitis, CVA, Diverticulitis, Homicidal, Suicidal, threat to staff... and all critical care pts) @ -Unlikely Disposition Clinical Impression: Chronic back pain Narrative: Please return to the Emergency Department if symptoms worsen or any other concerns. Follow-up with Dr. Tan, call orthopedic office tomorrow morning for further evaluation. Disposition: HOME SELF-CARE Condition: Good Instructions (If sedation given, give patient instructions): Chronic Back Pain (DC) Is patient prescribed a controlled substance at d/c from ED?: No Referrals: Nora Tellez MD [Primary Care Provider] - 1-2 days Time of Disposition: 21:37
[2024-01-01] MEDS: HYDROmorphone 1 MG/ML 1 ML SYRINGE IM STA (21:37)
[2024-01-01 21:51] VITALS: BP 177/92; PULSE 67
== END 2024-01-01 21:52 | disposition home or self-care (01) ==
LOC: EC 19:34
DX: G89.29 Other chronic pain (principal); M54.9 Dorsalgia, unspecified; M54.2 Cervicalgia; Z88.6 Allergy status to analgesic agent; Z88.5 Allergy status to narcotic agent; Z88.0 Allergy status to penicillin; Z88.8 Allergy status to other drugs, medicaments and biological substances; Z87.891 Personal history of nicotine dependence
CPT/HCPCS: 99284; 96372; J1170

== ENCOUNTER 2024-01-03 20:03 | Outpatient (CLI) | payer MEDICARE, OTHER ==
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
== END 2024-01-04 05:30 | disposition home or self-care (01) ==
LOC: 3 N SLEEP 20:03
PROVIDERS: ATTEND Internal Medicine Critical Care Medicine
DX: G47.33 Obstructive sleep apnea (adult) (pediatric) (principal); G47.10 Hypersomnia, unspecified; F51.04 Psychophysiologic insomnia; G89.29 Other chronic pain; M54.50 Low back pain, unspecified; F31.9 Bipolar disorder, unspecified; E03.9 Hypothyroidism, unspecified; G47.52 REM sleep behavior disorder; G43.909 Migraine, unspecified, not intractable, without status migrainosus; Z89.611 Acquired absence of right leg above knee; Z86.718 Personal history of other venous thrombosis and embolism; Z87.828 Personal history of other (healed) physical injury and trauma; Z88.1 Allergy status to other antibiotic agents; Z88.5 Allergy status to narcotic agent; Z88.0 Allergy status to penicillin; Z88.8 Allergy status to other drugs, medicaments and biological substances; Z79.890 Hormone replacement therapy; Z87.891 Personal history of nicotine dependence
CPT/HCPCS: 95810

== ENCOUNTER 2024-01-28 20:45 | Emergency (ER) | payer MEDICARE, OTHER ==
[2024-01-28 21:18] VITALS: RESP 16; TEMP 98.7
[2024-01-28] MEDS: HYDROmorphone 1 MG/ML 1 ML SYRINGE IM STA (21:40)
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
[2024-01-28 22:42] VITALS: BP 155/108; PULSE 79
== END 2024-01-28 22:41 | disposition home or self-care (01) ==
LOC: EC 20:45
DX: G89.29 Other chronic pain (principal); R51.9 Headache, unspecified; M54.2 Cervicalgia; F12.90 Cannabis use, unspecified, uncomplicated; Z88.5 Allergy status to narcotic agent; Z87.891 Personal history of nicotine dependence; Z88.0 Allergy status to penicillin; Z88.8 Allergy status to other drugs, medicaments and biological substances
CPT/HCPCS: 99284; 96372; J1170

== ENCOUNTER → 2024-02-02 | Outpatient (CLI) | payer MEDICARE, OTHER ==
[2024-02-02 13:41] LABS: INR 0.9 (<1.2); Partial Thromboplastin Time 24.2 sec (22.0-30.0)
[2024-02-02 18:08] LABS: HCT 35.3 % (37.2-46.3); MCH 26.1 pg (27.0-32.0); MCHC 31.2 g/dL (32.0-37.0); MCV 83.6 FL (80.0-97.0); Mean Platelet Volume 11.9 FL (9.5-12.2); NRBC Per 100 WBC 0 X 10*3/uL (0.00-0.01); Platelet Count 175 X 10*3/uL (140-440); RBC 4.22 X 10*6/uL (4.10-5.20); RDW 13.9 % (11.5-14.5); WBC 2.77 X 10*3/uL (4.50-10.00)
[2024-02-02 18:41] LABS: ALT 10 U/L (8-44); AST 14 U/L (13-35); Albumin 3.9 g/dL (3.8-4.9); Albumin/Globulin Ratio 1.62 Ratio (1.60-3.17); Alkaline Phosphatase 69 U/L (41-126); Blood Urea Nitrogen 16.8 mg/dL (9.0-27.0); Calcium 8.9 mg/dL (8.7-10.3); Carbon Dioxide 24.6 mmol/L (21.6-31.8); Chloride 106 mmol/L (96-109); Globulin 2.4 g/dL (1.6-3.3); Glucose 114 mg/dL (70-110); Potassium 3.7 mmol/L (3.5-5.5); Sodium 141 mmol/L (135-145); Total Bilirubin <0.2 mg/dL (0.3-1.2); Total Protein 6.3 g/dL (6.2-8.2)
== END | disposition home or self-care (01) ==
LOC: LABPAT 12:42
PROVIDERS: ATTEND Orthopaedic Surgery
DX: Z01.812 Encounter for preprocedural laboratory examination (principal); M48.02 Spinal stenosis, cervical region; M47.12 Other spondylosis with myelopathy, cervical region; Z22.322 Carrier or suspected carrier of Methicillin resistant Staphylococcus aureus
CPT/HCPCS: 36415; 80053; 82306; 85027; 85610; 85730; 86850; 86900; 86901; 87070

== ENCOUNTER 2024-02-07 19:41 | Outpatient (CLI) | payer MEDICARE ==
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
== END 2024-02-08 08:00 | disposition home or self-care (01) ==
LOC: 3 N SLEEP 19:41
PROVIDERS: ATTEND Internal Medicine Critical Care Medicine
DX: G47.33 Obstructive sleep apnea (adult) (pediatric) (principal); G47.10 Hypersomnia, unspecified; F51.04 Psychophysiologic insomnia; G89.29 Other chronic pain; E03.9 Hypothyroidism, unspecified; G43.909 Migraine, unspecified, not intractable, without status migrainosus; M48.52XA Collapsed vertebra, not elsewhere classified, cervical region, initial encounter for fracture; F17.200 Nicotine dependence, unspecified, uncomplicated; Z96.653 Presence of artificial knee joint, bilateral; Z86.718 Personal history of other venous thrombosis and embolism; Z98.1 Arthrodesis status; Z88.1 Allergy status to other antibiotic agents; Z88.0 Allergy status to penicillin; Z88.5 Allergy status to narcotic agent; Z88.8 Allergy status to other drugs, medicaments and biological substances; Z79.890 Hormone replacement therapy
CPT/HCPCS: 95811

== ENCOUNTER 2024-02-09 09:16 | Observation (INO) | payer MEDICARE, OTHER ==
[2024-02-09] MEDS: MORPHINE SULFATE 4 MG/ML SYRINGE IVP STA (11:03)
[2024-02-09 11:24] LABS: Basophils % (A) 1 %; Eosinophils # (A) 0.1 k/uL (0-0.7); Eosinophils % (A) 6 %; HCT 36.8 % (34.0-46.0); HGB 11.4 gm/dL (11.4-16.0); Lymphocytes # (A) 0.7 k/uL (1.0-4.8); Lymphocytes % (A) 30 %; MCH 26.3 pg (25.0-35.0); MCHC 31.1 g/dL (31.0-37.0); MCV 84.7 fL (80.0-100.0); Mean Platelet Volume 9.3; Monocytes # (A) 0.2 k/uL (0-1.0); Monocytes % (A) 7 %; Neutrophils # (A) 1.2 k/uL (1.3-7.7); Neutrophils % (A) 54 %; Platelet Count 127 k/uL (150-450); RBC 4.34 m/uL (3.80-5.40); RDW 14.3 % (11.5-15.5); WBC 2.3 k/uL (3.8-10.6)
--- NOTE | 2024-02-09 11:28 | CT ---
EXAMINATION TYPE: CT brain wo con CT DLP: 1138 mGycm, Automated exposure control for dose reduction was used. DATE OF EXAM: 02/09/2024 11:23 AM COMPARISON: 06/13/2020. CLINICAL INDICATION:Female, 43 years old with history of Altered mental status, TECHNIQUE: Brain: Axial CT images of the brain were obtained with coronal and sagittal reformats created and rev iewed. Contrast used: None. Oral contrast used: None. FINDINGS: Brain: Extra-axial spaces: No abnormal extra-axial fluid collections. Ventricular system: Within normal limits Cerebral parenchyma: No acute intraparenchymal hemorrhage or mass effect. The anthony-white junction is well differentiated. Cerebellum: Unremarkable. Mass effect: No evidence of midline shift. Intracranial vasculature: unremarkable Soft tissues: Normal. Calvarium/osseous structures: No depressed skull fracture. Paranasal sinuses and mastoid air cells: Mild scattered paranasal sinus disease. Visualized orbits: Orbital contents are intact. IMPRESSION: No acute intracranial process.
[2024-02-09 11:38] LABS: INR 0.9 (<1.2); Prothrombin Time 10.2 sec (10.0-12.5)
[2024-02-09 11:41] LABS: ALT 377 U/L (4-34); African American GFR (CKD) >90 (>60 ml/min/1.73 sqM); Albumin 3.8 g/dL (3.5-5.0); Alcohol <10 mg/dL; Anion Gap 2 mmol/L; Blood Urea Nitrogen 21 mg/dL (7-17); Carbon Dioxide 31 mmol/L (22-30); Chloride 104 mmol/L (98-107); Glucose 66 mg/dL (74-99); Non-African American GFR(CKD) >90 (>60 ml/min/1.73 sqM); Sodium 137 mmol/L (137-145); Total Bilirubin 0.7 mg/dL (0.2-1.3); Total Protein 6.8 g/dL (6.3-8.2)
[2024-02-09 11:45] LABS: AST 364 U/L (14-36); Alkaline Phosphatase 149 U/L (38-126); Potassium 4.8 mmol/L (3.5-5.1)
[2024-02-09 11:50] LABS: Partial Thromboplastin Time 21.2 sec (22.0-30.0)
--- NOTE | 2024-02-09 12:06 | XR ---
EXAMINATION TYPE: XR chest 2V DATE OF EXAM: 02/09/2024 COMPARISON: 06/13/2020 INDICATION: Increased confusion TECHNIQUE: Frontal and lateral views of the chest are obtained. FINDINGS: The heart size is normal. The pulmonary vasculature is normal. The lungs are clear. Cervical thoracic fixation is evident. IMPRESSION: 1. No acute pulmonary process.
[2024-02-09] MEDS: DEXTROSE 50% SYRINGE 50 ML IVP STA (12:20)
[2024-02-09 12:50] LABS: T4, Free (Free Thyroxine) 0.95 ng/dL (0.78-2.19)
[2024-02-09 13:21] LABS: Amphetamine Screen,Urine Not Detected (NotDetected); Barbiturate Screen,Urine Not Detected (NotDetected); Benzodiazepines Screen,Urine Detected (NotDetected); Cocaine Screen,Urine Detected (NotDetected); Methadone Screen, Urine Not Detected (NotDetected); Opiate Screen,Urine Detected (NotDetected); Oxycodone Screen, Urine Detected (NotDetected); Phencyclidine Screen,Urine Not Detected (NotDetected); Tricyclic Antidepressant,Urine Detected (NotDetected); Urn Cannabinoid Scrn Detected (NotDetected)
[2024-02-09 13:25] LABS: Appearance,Urine Cloudy (Clear); Bilirubin,Urine Negative (Negative); Blood,Urine Negative (Negative); Color,Urine Yellow; Glucose,Urine (UA) Trace (Negative); Ketones,Urine Negative (Negative); Leukocyte Esterase,Urine Small (Negative); Mucus,Urine Many /hpf; Nitrite,Urine Negative (Negative); Protein,Urine 1+ (Negative); RBC,Urine 1 /hpf (0-5); Specific Gravity,Urine 1.033 (1.001-1.035); Squamous Epithelial Cell,Urine 12 /hpf (0-4); WBC,Urine 10 /hpf (0-5)
--- NOTE | 2024-02-09 14:46 | CT ---
EXAMINATION TYPE: CT abdomen pelvis w con DATE OF EXAM: 02/09/2024 COMPARISON: 06/13/2020 HISTORY: ELEVATED LIVER ENZYMES CT DLP: 1040.1 mGycm Automated exposure control for dose reduction was used. TECHNIQUE: Helical acquisition of images was performed from the lung bases through the pelvis. CONTRAST: Performed without Oral Contrast and with IV Contrast, patient injected with 100 mL of Isovue 300. FINDINGS: The lung bases are clear. Postoperative changes involving the GE junction. There is surgical absence of the bladder. There is no biliary ductal dilatation. There is no focal mass or organomegaly involving the liver, pancreas, spleen or adrenal glands. There is no solid renal mass or hydronephrosis and there is homogeneous contrast enhancement of the r enal parenchyma. The caliber the abdominal aorta is normal is no retroperitoneal adenopathy or hemorr candace. The bowel loops are normal in caliber and there is no evidence of dilatation or obstruction. No infla mmatory changes are identified in the bowel wall or mesentery. There is no free intraperitoneal air or fluid. No pelvic mass, free fluid, abscess or adenopathy. There is surgical absence of uterus. There are sta ble varices in the anterior pelvic subcutaneous soft tissues. There is a left hip prosthesis. No focal osseous lesions are seen. IMPRESSION: No acute changes within the abdomen or pelvis. Postsurgical changes as described above.
[2024-02-09] MEDS: HYDROmorphone 1 MG/ML 1 ML SYRINGE IVP STA (15:10)
--- NOTE | 2024-02-09 15:21 | ED ---
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 The lamination operator provides the history. States that the patient was hospitalized yesterday for a sleep study. She got home at 5 PM and went straight back to sleep. She was then up in the middle of the night and had some odd behavior. She was stating that she had to go up to the hospital to have her surgery done. Enrobing Machine Operator states that the patient was supposed to have surgery however this was canceled. 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 The lamination operator states that this is very odd behavior from the patient to be confused like this. No recent medication changes. No trauma. No reported fevers. No lateralizing symptoms. No complaint of any urinary symptoms. No other alleviating, precipitating or modifying factors - Related Data Home Medications Medication Instructions Recorded Confirmed Albuterol Inhaler [Ventolin Hfa 1 puff INHALATION RT-Q4H PRN 11/21/23 02/09/24 Inhaler] Escitalopram [Lexapro] 20 mg PO HS 11/21/23 02/09/24 Gabapentin [Neurontin] 100 mg PO BID 11/21/23 02/09/24 Levothyroxine Sodium [Synthroid] 50 mcg PO DAILY 11/21/23 02/09/24 Morphine Sulfate ER [Ms Contin] 15 mg PO Q12HR 11/21/23 02/09/24 Pantoprazole [Protonix] 40 mg PO DAILY 11/21/23 02/09/24 Amitriptyline HCl [Elavil] 25 mg PO HS 02/09/24 02/09/24 Butalb/APAP/Caff 50-325-40Mg 1 tab PO Q4H PRN 02/09/24 02/09/24 [Fioricet 50-325-40] Naloxone HCl [Narcan] 4 mg NASAL DIRECTED PRN 02/09/24 02/09/24 QUEtiapine FUMARATE [SEROquel] 300 mg PO HS 02/09/24 02/09/24 amLODIPine [Norvasc] 5 mg PO HS 02/09/24 02/09/24 Previous Rx's Medication Instructions Recorded oxyCODONE-APAP 10-325MG [Percocet 1 tab PO BID PRN #0 02/10/24 10-325 mg] tiZANidine [Zanaflex] 2 mg PO TID #0 02/10/24 Allergies Allergy/AdvReac Type Severity Reaction Status Date / Time acetaminophen Allergy Rapid Verified 02/09/24 11:34 [From Tylenol-Codeine #3] Heart Rate amoxicillin Allergy Swelling Verified 02/09/24 11:34 codeine phosphate Allergy Rapid Verified 02/09/24 11:34 [From Tylenol-Codeine #3] Heart Rate hydrocortisone Allergy Rash/Hives Verified 02/09/24 11:34 Penicillins Allergy Swelling Verified 02/09/24 11:34 pregabalin [From Lyrica] Allergy Dizziness Verified 02/09/24 11:34 venlafaxine HCl Allergy Rapid Verified 02/09/24 11:34 [From Effexor] Heart Rate codeine AdvReac Unknown Verified 02/09/24 11:34 [From Tylenol-Codeine #3] venlafaxine [From Effexor] AdvReac Rapid Verified 02/09/24 11:34 Heart Rate Review of Systems ROS Statement: Those systems with pertinent positive or pertinent negative responses have been documented in the HPI. ROS Other: All systems not noted in ROS Statement are negative. Past Medical History Past Medical History: GERD/Reflux, Thyroid Disorder Additional Past Medical History / Comment(s): Congenital hip dislocation at [facility], back pain , headaches History of Any Multi-Drug Resistant Organisms: None Reported Date of last positivie culture/infection: 2007 MDRO Source:: left arm Past Surgical History: Cholecystectomy, Hysterectomy, Orthopedic Surgery, Tubal Ligation Additional Past Surgical History / Comment(s): Neck fusions, 12 hip surgeries, above knee left leg amputation 2022. Past Anesthesia/Blood Transfusion Reactions: No Reported Reaction Past Psychological History: Bipolar, Depression Smoking Status: Former smoker Past Alcohol Use History: None Reported Past Drug Use History: Marijuana - Past Family History Mother Family Medical History: Cancer General Exam Limitations: no limitations General appearance: alert, in no apparent distress Head exam: Present: atraumatic, normocephalic, normal inspection Eye exam: Present: normal appearance, PERRL, EOMI. Absent: scleral icterus, conjunctival injection, periorbital swelling ENT exam: Present: normal exam, mucous membranes moist Neck exam: Present: normal inspection. Absent: tenderness, meningismus, lymphadenopathy Respiratory exam: Present: normal lung sounds bilaterally. Absent: respiratory distress, wheezes, rales, rhonchi, stridor Cardiovascular Exam: Present: regular rate, normal rhythm, normal heart sounds. Absent: systolic murmur, diastolic murmur, rubs, gallop, clicks GI/Abdominal exam: Present: soft, normal bowel sounds. Absent: distended, tenderness, guarding, rebound, rigid Extremities exam: Present: full ROM, normal capillary refill, other (Left BKA). Absent: tenderness, pedal edema, joint swelling, calf tenderness Back exam: Present: normal inspection Neurological exam: Present: alert, oriented X3, CN II-XII intact Psychiatric exam: Present: normal affect, normal mood Skin exam: Present: warm, dry, intact, normal color. Absent: rash Course Vital Signs 02/09/24 02/09/24 02/09/24 09:17 09:33 10:00 Temperature 97.8 F Pulse Rate 81 67 64 Pulse Rate [ Law Office Assistant ] Respiratory 16 15 14 Rate Blood Pressure 101/65 96/73 104/71 Blood Pressure [Right Arm] O2 Sat by Pulse 99 99 95 Oximetry 02/09/24 02/09/24 02/09/24 10:30 11:00 11:30 Temperature Pulse Rate 64 56 L 65 Pulse Rate [ Law Office Assistant ] Respiratory 13 12 14 Rate Blood Pressure 108/77 104/73 111/79 Blood Pressure [Right Arm] O2 Sat by Pulse 98 96 96 Oximetry 02/09/24 02/09/24 02/09/24 12:00 12:30 13:00 Temperature Pulse Rate 61 71 64 Pulse Rate [ Law Office Assistant ] Respiratory 16 14 14 Rate Blood Pressure 104/76 113/77 115/63 Blood Pressure [Right Arm] O2 Sat by Pulse 100 95 96 Oximetry 02/09/24 02/09/24 02/09/24 13:30 14:00 16:20 Temperature Pulse Rate 67 59 L 93 Pulse Rate [ Law Office Assistant ] Respiratory 16 16 18 Rate Blood Pressure 119/72 117/76 119/69 Blood Pressure [Right Arm] O2 Sat by Pulse 97 95 98 Oximetry 02/09/24 02/09/24 02/10/24 20:29 22:50 01:45 Temperature Pulse Rate 74 58 L 62 Pulse Rate [ Law Office Assistant ] Respiratory 18 18 18 Rate Blood Pressure 128/87 93/60 104/76 Blood Pressure [Right Arm] O2 Sat by Pulse 97 94 L 95 Oximetry 02/10/24 02/10/24 02/10/24 04:18 06:55 09:04 Temperature 98.1 F Pulse Rate 56 L 67 Pulse Rate [ 75 Law Office Assistant ] Respiratory 18 18 18 Rate Blood Pressure 126/80 110/70 Blood Pressure 124/84 [Right Arm] O2 Sat by Pulse 96 97 Oximetry 02/10/24 12:00 Temperature Pulse Rate Pulse Rate [ 69 Law Office Assistant ] Respiratory 16 Rate Blood Pressure Blood Pressure 100/64 [Right Arm] O2 Sat by Pulse 99 Oximetry Procedures - [facility] Protocol (Time Out) Nurse: Cora Heaton Medical Decision Making - Medical Decision Making Was pt. sent in by a medical professional or institution (, PA, INTEGRITY MANAGER, urgent care, hospital, or snf...) When possible be specific @ -No Did you speak to anyone other than the patient for history (EMS, parent, family, police, friend...)? What history was obtained from this source @ -I spoke with the lamination operator for history Did you review nursing and triage notes (agree or disagree)? Why? @ -I reviewed and agree with nursing and triage notes Were old charts reviewed (outside hosp., previous admission, EMS record, old EKG, old radiological studies, urgent care reports/EKG's, snf records)? Report findings @ -No old charts were reviewed Differential Diagnosis (chest pain, altered mental status, abdominal pain women, abdominal pain men, vaginal bleeding, weakness, fever, dyspnea, syncope, headache, dizziness, GI bleed, back pain, seizure, CVA, palpatations, mental health, musculoskeletal)? @ -Differential Altered Mental Status: Hypoglycemia, DKA, hypercapnia, ETOH, overdose, CO poisoning, trauma, myxedema coma, HTN encephalopathy, infection, encephalitis, psychosis, intercranial hemorrhage, hepatic encephalopathy, meningitis, CVA, this is not meant to be an all-inclusive list EKG interpreted by me (3pts min.). @ -Yes and demonstrates sinus rhythm with a rate of 61. MO interval 166. QRS 90. QTc of 408. No acute ST segment elevations or depressions X-rays interpreted by me (1pt min.). @ -Yes and demonstrates no acute process CT interpreted by me (1pt min.). @ -Yes and demonstrates no acute process U/S interpreted by me (1pt. min.). @ -None done What testing was considered but not performed or refused? (CT, X-rays, U/S, labs)? Why? @ -None What meds were considered but not given or refused? Why? @ -None Did you discuss the management of the patient with other professionals (professionals i.e. DrBrian, PA, INTEGRITY MANAGER, lab, RT, psych nurse, social media marketer, emergency department rn, teacher, juvenile justice officer, field nurse case manager)? Give summary @ -Spoke with Dr. Newman to admit the patient Was smoking cessation discussed for >3mins.? @ -No Was critical care preformed (if so, how long)? @ -No Were there social determinants of health that impacted care today? How? (Ho melessness, low income, unemployed, alcoholism, drug addiction, transportation, low edu. Level, literacy, decrease access to med. care, nursing home, rehab)? @ -Patient is an amputee Was there de-escalation of care discussed even if they declined (Discuss DNR or withdrawal of care, Hospice)? DNR status @ -No What co-morbidities impacted this encounter? (DM, HTN, Smoking, COPD, CAD, Cancer, CVA, ARF, Chemo, Hep., AIDS, mental health diagnosis, sleep apnea, morbid obesity)? @ -Previous amputee, chronic back pain Was patient admitted / discharged? Hospital course, mention meds given and route, prescriptions, significant lab abnormalities, going to OR and other pertinent info. @ -Upon arrival patient seen and evaluated in room 20. Thorough history and physical exam was performed. IV is established. Laboratory studies are conducted. Chest x-ray, CT head and CT abdomen are performed. Results are discussed with patient. Liver enzymes markedly elevated. Will order a hepatitis panel. Patient does have polysubstance abuse according to urinalysis. I will admit for neurology consultation. Spoke with Dr. Read for admission Undiagnosed new problem with uncertain prognosis? @ -Yes Drug Therapy requiring intensive monitoring for toxicity (Heparin, Nitro, Insulin, Cardizem)? @ -No Were any procedures done? @ -No Diagnosis/symptom? @ -Acute encephalopathy, polysubstance abuse, transaminitis Acute, or Chronic, or Acute on Chronic? @ -Acute Uncomplicated (without systemic symptoms) or Complicated (systemic symptoms)? @ -Complicated Side effects of treatment? @ -No Exacerbation, Progression, or Severe Exacerbation? @ -No Poses a threat to life or bodily function? How? (Chest pain, [place], [place], pneumonia, PE, COPD, DKA, ARF, appy, cholecystitis, CVA, Diverticulitis, Homicidal, Bass icidal, threat to staff... and all critical care pts) @ -No - Lab Data Result diagrams: 02/10/24 10:30 02/10/24 10:30 Lab Results 02/09/24 02/09/24 02/09/24 Range/Units 10:35 10:53 10:53 WBC 2.3 L (3.8-10.6) k/uL RBC 4.34 (3.80-5.40) m/uL Hgb 11.4 (11.4-16.0) gm/dL Hct 36.8 (34.0-46.0) % MCV 84.7 (80.0-100.0) fL MCH 26.3 (25.0-35.0) pg MCHC 31.1 (31.0-37.0) g/dL RDW 14.3 (11.5-15.5) % Plt Count 127 L (150-450) k/uL MPV 9.3 Neutrophils % 54 % Lymphocytes % 30 % Monocytes % 7 % Eosinophils % 6 % Basophils % 1 % Neutrophils # 1.2 L (1.3-7.7) k/uL Lymphocytes # 0.7 L (1.0-4.8) k/uL Monocytes # 0.2 (0-1.0) k/uL Eosinophils # 0.1 (0-0.7) k/uL Basophils # 0.0 (0-0.2) k/uL PT 10.2 (10.0-12.5) sec INR 0.9 (<1.2) APTT 21.2 L (22.0-30.0) sec Sodium (137-145) mmol/L Potassium (3.5-5.1) mmol/L Chloride (98-107) mmol/L Carbon Dioxide (22-30) mmol/L Anion Gap mmol/L BUN (7-17) mg/dL Creatinine (0.52-1.04) mg/dL Est GFR (CKD-EPI)AfAm (>60 ml/min/1.73 sqM) Est GFR (CKD-EPI)NonAf (>60 ml/min/1.73 sqM) Glucose (74-99) mg/dL Calcium (8.4-10.2) mg/dL Total Bilirubin (0.2-1.3) mg/dL AST (14-36) U/L ALT (4-34) U/L Alkaline Phosphatase (38-126) U/L Ammonia (<30) umol/L Troponin I (0.000-0.034) ng/mL Total Protein (6.3-8.2) g/dL Albumin (3.5-5.0) g/dL TSH (0.465-4.680) mIU/L Free T4 (0.78-2.19) ng/dL Urine Color Urine Appearance (Clear) Urine pH (5.0-8.0) Ur Specific [place] (1.001-1.035) Urine Protein (Negative) Urine Glucose (UA) (Negative) Urine Ketones (Negative) Urine Blood (Negative) Urine Nitrite (Negative) Urine Bilirubin (Negative) Urine Urobilinogen (<2.0) mg/dL Ur Leukocyte Esterase (Negative) Urine RBC (0-5) /hpf Urine WBC (0-5) /hpf Ur Squamous Epith Cells (0-4) /hpf Urine Mucus (None) /hpf Urine Opiates Screen (NotDetected) Ur Oxycodone Screen (NotDetected) Urine Methadone Screen (NotDetected) Acetaminophen ug/mL Ur Barbiturates Screen (NotDetected) U Tricyclic Antidepress (NotDetected) Ur Phencyclidine Scrn (NotDetected) Ur Amphetamines Screen (NotDetected) U Methamphetamines Scrn (NotDetected) U Benzodiazepines Scrn (NotDetected) Urine Cocaine Screen (NotDetected) U Marijuana (THC) Screen (NotDetected) Serum Alcohol mg/dL Hepatitis A IgM Ab Nonreactive (Nonreactive) Hep Bs Antigen Nonreactive (Nonreactive) Hep B Core IgM Ab Nonreactive (Nonreactive) Hep C IgG Ab Nonreactive (Nonreactive) 02/09/24 02/09/24 02/09/24 Range/Units 10:53 10:53 10:53 WBC (3.8-10.6) k/uL RBC (3.80-5.40) m/uL Hgb (11.4-16.0) gm/dL Hct (34.0-46.0) % MCV (80.0-100.0) fL MCH (25.0-35.0) pg MCHC (31.0-37.0) g/dL RDW (11.5-15.5) % Plt Count (150-450) k/uL MPV Neutrophils % % Lymphocytes % % Monocytes % % Eosinophils % % Basophils % % Neutrophils # (1.3-7.7) k/uL Lymphocytes # (1.0-4.8) k/uL Monocytes # (0-1.0) k/uL Eosinophils # (0-0.7) k/uL Basophils # (0-0.2) k/uL PT (10.0-12.5) sec INR (<1.2) APTT (22.0-30.0) sec Sodium 137 (137-145) mmol/L Potassium 4.8 (3.5-5.1) mmol/L Chloride 104 (98-107) mmol/L Carbon Dioxide 31 H (22-30) mmol/L Anion Gap 2 mmol/L BUN 21 H (7-17) mg/dL Creatinine 0.53 (0.52-1.04) mg/dL Est GFR (CKD-EPI)AfAm >90 (>60 ml/min/1.73 sqM) Est GFR (CKD-EPI)NonAf >90 (>60 ml/min/1.73 sqM) Glucose 66 L (74-99) mg/dL Calcium 9.0 (8.4-10.2) mg/dL Total Bilirubin 0.7 (0.2-1.3) mg/dL AST 364 H (14-36) U/L ALT 377 H (4-34) U/L Alkaline Phosphatase 149 H (38-126) U/L Ammonia <9 (<30) umol/L Troponin I (0.000-0.034) ng/mL Total Protein 6.8 (6.3-8.2) g/dL Albumin 3.8 (3.5-5.0) g/dL TSH 0.073 L (0.465-4.680) mIU/L Free T4 0.95 (0.78-2.19) ng/dL Urine Color Yellow Urine Appearance Cloudy H (Clear) Urine pH 6.0 (5.0-8.0) Ur Specific [place] 1.033 (1.001-1.035) Urine Protein 1+ H (Negative) Urine Glucose (UA) Trace H (Negative) Urine Ketones Negative (Negative) Urine Blood Negative (Negative) Urine Nitrite Negative (Negative) Urine Bilirubin Negative (Negative) Urine Urobilinogen 2.0 (<2.0) mg/dL Ur Leukocyte Esterase Small H (Negative) Urine RBC 1 (0-5) /hpf Urine WBC 10 H (0-5) /hpf Ur Squamous Epith Cells 12 H (0-4) /hpf Urine Mucus Many H (None) /hpf Urine Opiates Screen Detected H (NotDetected) Ur Oxycodone Screen Detected H (NotDetected) Urine Methadone Screen Not Detected (NotDetected) Acetaminophen ug/mL Ur Barbiturates Screen Not Detected (NotDetected) U Tricyclic Antidepress Detected H (NotDetected) Ur Phencyclidine Scrn Not Detected (NotDetected) Ur Amphetamines Screen Not Detected (NotDetected) U Methamphetamines Scrn Not Detected (NotDetected) U Benzodiazepines Scrn Detected H (NotDetected) Urine Cocaine Screen Detected H (NotDetected) U Marijuana (THC) Screen Detected H (NotDetected) Serum Alcohol <10 mg/dL Hepatitis A IgM Ab (Nonreactive) Hep Bs Antigen (Nonreactive) Hep B Core IgM Ab (Nonreactive) Hep C IgG Ab (Nonreactive) 02/09/24 02/09/24 Range/Units 10:53 12:38 WBC (3.8-10.6) k/uL RBC (3.80-5.40) m/uL Hgb (11.4-16.0) gm/dL Hct (34.0-46.0) % MCV (80.0-100.0) fL MCH (25.0-35.0) pg MCHC (31.0-37.0) g/dL RDW (11.5-15.5) % Plt Count (150-450) k/uL MPV Neutrophils % % Lymphocytes % % Monocytes % % Eosinophils % % Basophils % % Neutrophils # (1.3-7.7) k/uL Lymphocytes # (1.0-4.8) k/uL Monocytes # (0-1.0) k/uL Eosinophils # (0-0.7) k/uL Basophils # (0-0.2) k/uL PT (10.0-12.5) sec INR (<1.2) APTT (22.0-30.0) sec Sodium (137-145) mmol/L Potassium (3.5-5.1) mmol/L Chloride (98-107) mmol/L Carbon Dioxide (22-30) mmol/L Anion Gap mmol/L BUN (7-17) mg/dL Creatinine (0.52-1.04) mg/dL Est GFR (CKD-EPI)AfAm (>60 ml/min/1.73 sqM) Est GFR (CKD-EPI)NonAf (>60 ml/min/1.73 sqM) Glucose (74-99) mg/dL Calcium (8.4-10.2) mg/dL Total Bilirubin (0.2-1.3) mg/dL AST (14-36) U/L ALT (4-34) U/L Alkaline Phosphatase (38-126) U/L Ammonia (<30) umol/L Troponin I 0.055 H* (0.000-0.034) ng/mL Total Protein (6.3-8.2) g/dL Albumin (3.5-5.0) g/dL TSH (0.465-4.680) mIU/L Free T4 (0.78-2.19) ng/dL Urine Color Urine Appearance (Clear) Urine pH (5.0-8.0) Ur Specific [place] (1.001-1.035) Urine Protein (Negative) Urine Glucose (UA) (Negative) Urine Ketones (Negative) Urine Blood (Negative) Urine Nitrite (Negative) Urine Bilirubin (Negative) Urine Urobilinogen (<2.0) mg/dL Ur Leukocyte Esterase (Negative) Urine RBC (0-5) /hpf Urine WBC (0-5) /hpf Ur Squamous Epith Cells (0-4) /hpf Urine Mucus (None) /hpf Urine Opiates Screen (NotDetected) Ur Oxycodone Screen (NotDetected) Urine Methadone Screen (NotDetected) Acetaminophen <10.0 ug/mL Ur Barbiturates Screen (NotDetected) U Tricyclic Antidepress (NotDetected) Ur Phencyclidine Scrn (NotDetected) Ur Amphetamines Screen (NotDetected) U Methamphetamines Scrn (NotDetected) U Benzodiazepines Scrn (NotDetected) Urine Cocaine Screen (NotDetected) U Marijuana (THC) Screen (NotDetected) Serum Alcohol mg/dL Hepatitis A IgM Ab (Nonreactive) Hep Bs Antigen (Nonreactive) Hep B Core IgM Ab (Nonreactive) Hep C IgG Ab (Nonreactive) Disposition Clinical Impression: Acute encephalopathy, Transaminitis, Polysubstance abuse, Elevated troponin Disposition: ADMITTED IP TO THIS [facility] Condition: Good Is patient prescribed a controlled substance at d/c from ED?: No Time of Disposition: 16:14 Decision to Admit Reason: Admit from EC Decision Date: 02/09/24 Decision Time: 16:14
[2024-02-09] MEDS ORDERED: NALOXONE 0.4 MG/ML 1 ML VIAL IV PRN (16:14)
[2024-02-09] MEDS ORDERED: BUTALB/APAP/CAFF 50-325-40MG TAB PO PRN (17:22)
[2024-02-09] MEDS ORDERED: ALBUTEROL NEBULIZED 2.5 MG/3 ML INHALATION PRN (17:22)
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
[2024-02-09] MEDS: MORPHINE SULFATE ER 15 MG TABLET PO SCH (20:22)
[2024-02-09] MEDS: QUEtiapine 100 MG TAB PO SCH (20:22)
[2024-02-09] MEDS: amLODIPine 5 MG TAB PO SCH (20:23)
[2024-02-09] MEDS: tiZANidine 4 MG TAB PO SCH (20:23)
[2024-02-09] MEDS: GABAPENTIN 100 MG CAP PO SCH (20:23)
[2024-02-09] MEDS: AMITRIPTYLINE HCL 25 MG TAB PO SCH (20:23)
[2024-02-09] MEDS: ESCITALOPRAM 20 MG TAB PO SCH (20:23)
[2024-02-10 02:53] LABS: Hepatitis A Antibody IgM Nonreactive (Nonreactive); Hepatitis B Core IgM Nonreactive (Nonreactive); Hepatitis B Surface Antigen Nonreactive (Nonreactive); Hepatitis C IgG Antibody Nonreactive (Nonreactive)
[2024-02-10] MEDS: oxyCODONE-APAP 10-325MG 1 EACH TAB PO PRN (03:55)
[2024-02-10] MEDS: LEVOTHYROXINE 50 MCG TAB PO SCH (06:14)
[2024-02-10 09:06] VITALS: TEMP 98.1
[2024-02-10] MEDS: PANTOPRAZOLE 40 MG TABLET PO SCH (09:14)
--- NOTE | 2024-02-10 10:29 | P.CRDCN ---
History of Present Illness Consult date: 02/10/24 Reason for Consult (text): Elevated troponins History of present illness: History of present illness: This is a 43-year-old female with no previous cardiac history and does not follow with a improvement spec. She has a past medical history of hypertension, depression, bipolar disorder, gastroesophageal reflux disease, left [id number] amputation, history of tobacco use and dependence, marijuana use. We have been asked to evaluate the patient for elevated troponins. Patient states that she was sleeping more and apparently was slurring her speech and her roommate was concerned that she was having a stroke and called EMS for her to be brought into the hospital. Patient denies having chest pain, no shortness of breath. She states her symptoms have resolved. She she denies family history of coronary artery disease. Patient denies smoking currently and uses THC Gummies. She denies use of cocaine as was identified in her urine drug screen. She denies alcohol use. Patient is seen today in the emergency center waiting for bed on the cardiac stepdown unit. EKG sinus rhythm with no acute ST-T wave changes. Chest x-ray: No acute process Laboratory studies: WBC 2.3, hemoglobin 11.4. Platelet count 127. Potassium 4.8, BUN 21 creatinine 0.53. AST 364, ALT 377, alkaline phosphatase 149. Troponin 0.055, 0.037, 0.041. TSH 0.073 with normal free T4 of 0.95. Urinalysis small amount of leukoesterase, WBCs 10. Squamous cells 12. Urine drug screen detected opiates, oxycodone, tricyclic antidepressants, benzodiazepines, cocaine, marijuana. Serum alcohol less than 10. Acetaminophen less than 10. Hepatitis panel nonreactive Home cardiac medications: Amlodipine 5 mg at bedtime, also on levothyroxine 50 mcg daily Review Of Systems: At the time of my exam: CONSTITUTIONAL: Denies fever or chills. HEENT: Denies blurred vision, vision changes, or eye pain. Denies hemoptysis CARDIOVASCULAR: Denies chest pain. Denies orthopnea. Denies PND. Denies palpitations RESPIRATORY: Denies shortness of breath. GASTROINTESTINAL: Denies abdominal pain. Denies nausea or vomiting. HEMATOLOGIC: Denies bleeding disorders. GENITOURINARY: Denies any blood in urine. SKIN: Denies pruitis. Denies rash. Physical examination: Gen: This is a 43-year-old female in no acute distress VS: reviewed HEENT: Head is atraumatic, normocephalic. Pupils equal, round. Sclerae is anicteric. NECK: Supple. No JVD. LUNGS: Clear to auscultation. No wheezes or rhonchi. No intercostal retractions. HEART: Regular rate and rhythm. No murmur. ABDOMEN: Soft No tenderness. EXTREMITIES: No pedal edema. No calf tenderness. NEUROLOGICAL: Patient is awake, alert and oriented x3. Assessment: Elevated troponins, acute coronary syndrome ruled out Mental status changes Hypertension Plan: Resume patient's home cardiac medications Obtain 2-D echocardiogram and Doppler study to assess cardiac structure and function If echocardiogram is unremarkable, patient is cleared for discharge from cardiology. Thank you kindly for this consultation. Nurse practitioner note has been reviewed, I agree with documented findings and plan of care. Patient was seen and examined. Past Medical History Past Medical History: GERD/Reflux, Thyroid Disorder Additional Past Medical History / Comment(s): Congenital hip dislocation at , back pain , headaches History of Any Multi-Drug Resistant Organisms: None Reported Date of last positivie culture/infection: 2007 MDRO Source:: left arm Past Surgical History: Cholecystectomy, Hysterectomy, Orthopedic Surgery, Tubal Ligation Additional Past Surgical History / Comment(s): Neck fusions, 12 hip surgeries, above knee left leg amputation 2022. Past Anesthesia/Blood Transfusion Reactions: No Reported Reaction Past Psychological History: Bipolar, Depression Smoking Status: Former smoker Past Alcohol Use History: None Reported Past Drug Use History: Marijuana - Past Family History Mother Family Medical History: Cancer Medications and Allergies Home Medications Medication Instructions Recorded Confirmed Type Albuterol Inhaler [Ventolin Hfa 1 puff INHALATION RT-Q4H PRN 11/21/23 02/09/24 History Inhaler] Escitalopram [Lexapro] 20 mg PO HS 11/21/23 02/09/24 History Gabapentin [Neurontin] 100 mg PO BID 11/21/23 02/09/24 History Levothyroxine Sodium [Synthroid] 50 mcg PO DAILY 11/21/23 02/09/24 History Morphine Sulfate ER [Ms Contin] 15 mg PO Q12HR 11/21/23 02/09/24 History Pantoprazole [Protonix] 40 mg PO DAILY 11/21/23 02/09/24 History oxyCODONE-APAP 10-325MG [Percocet 1 tab PO BID 11/21/23 02/09/24 History 10-325 mg] tiZANidine [Zanaflex] 4 mg PO TID 11/21/23 02/09/24 History Amitriptyline HCl [Elavil] 25 mg PO HS 02/09/24 02/09/24 History Butalb/APAP/Caff 50-325-40Mg 1 tab PO Q4H PRN 02/09/24 02/09/24 History [Fioricet 50-325-40] Naloxone HCl [Narcan] 4 mg NASAL DIRECTED PRN 02/09/24 02/09/24 History QUEtiapine FUMARATE [SEROquel] 300 mg PO HS 02/09/24 02/09/24 History amLODIPine [Norvasc] 5 mg PO HS 02/09/24 02/09/24 History Allergies Allergy/AdvReac Type Severity Reaction Status Date / Time acetaminophen Allergy Rapid Verified 02/09/24 11:34 [From Tylenol-Codeine #3] Heart Rate amoxicillin Allergy Swelling Verified 02/09/24 11:34 codeine phosphate Allergy Rapid Verified 02/09/24 11:34 [From Tylenol-Codeine #3] Heart Rate hydrocortisone Allergy Rash/Hives Verified 02/09/24 11:34 Penicillins Allergy Swelling Verified 02/09/24 11:34 pregabalin [From Lyrica] Allergy Dizziness Verified 02/09/24 11:34 venlafaxine HCl Allergy Rapid Verified 02/09/24 11:34 [From Effexor] Heart Rate codeine AdvReac Unknown Verified 02/09/24 11:34 [From Tylenol-Codeine #3] venlafaxine [From Effexor] AdvReac Rapid Verified 02/09/24 11:34 Heart Rate Physical Exam Vitals: Vital Signs Temp Pulse Resp BP Pulse Ox 02/10/24 06:55 67 18 110/70 96 02/10/24 04:18 56 L 18 126/80 02/10/24 01:45 62 18 104/76 95 02/09/24 22:50 58 L 18 93/60 94 L 02/09/24 20:29 74 18 128/87 97 02/09/24 16:20 93 18 119/69 98 02/09/24 14:00 59 L 16 117/76 95 02/09/24 13:30 67 16 119/72 97 02/09/24 13:00 64 14 115/63 96 02/09/24 12:30 71 14 113/77 95 02/09/24 12:00 61 16 104/76 100 02/09/24 11:30 65 14 111/79 96 02/09/24 11:00 56 L 12 104/73 96 02/09/24 10:30 64 13 108/77 98 02/09/24 10:00 64 14 104/71 95 02/09/24 09:33 67 15 96/73 99 02/09/24 09:17 97.8 F 81 16 101/65 99 Results 02/09/24 10:53 02/09/24 10:53 Cardiac Enzymes 02/09/24 02/09/24 02/09/24 Range/Units 10:53 10:53 18:34 AST 364 H (14-36) U/L Troponin I 0.055 H* 0.037 H* (0.000-0.034) ng/mL 02/10/24 Range/Units 01:49 AST (14-36) U/L Troponin I 0.041 H* (0.000-0.034) ng/mL Coagulation 02/09/24 Range/Units 10:53 PT 10.2 (10.0-12.5) sec APTT 21.2 L (22.0-30.0) sec CBC 02/09/24 Range/Units 10:53 WBC 2.3 L (3.8-10.6) k/uL RBC 4.34 (3.80-5.40) m/uL Hgb 11.4 (11.4-16.0) gm/dL Hct 36.8 (34.0-46.0) % Plt Count 127 L (150-450) k/uL Comprehensive Metabolic Panel 02/09/24 Range/Units 10:53 Sodium 137 (137-145) mmol/L Potassium 4.8 (3.5-5.1) mmol/L Chloride 104 (98-107) mmol/L Carbon Dioxide 31 H (22-30) mmol/L BUN 21 H (7-17) mg/dL Creatinine 0.53 (0.52-1.04) mg/dL Glucose 66 L (74-99) mg/dL Calcium 9.0 (8.4-10.2) mg/dL AST 364 H (14-36) U/L ALT 377 H (4-34) U/L Alkaline Phosphatase 149 H (38-126) U/L Total Protein 6.8 (6.3-8.2) g/dL Albumin 3.8 (3.5-5.0) g/dL Current Medications Generic Name Dose Route Start Last Admin Trade Name Freq PRN Reason Stop Dose Admin Acetaminophen/Butalbital/Caffeine 1 each 02/09/24 17:22 Butalb/Apap/Caff 50-325-40mg Tab PO Q4H PRN Migraine Headache Albuterol Sulfate 2.5 mg 02/09/24 17:22 Albuterol Nebulized 2.5 Mg/3 Ml INHALATION RT-Q4H PRN Shortness Of Breath Amitriptyline HCl 25 mg 02/09/24 21:00 02/09/24 20:23 Amitriptyline Hcl 25 Mg Tab PO 25 mg HS ADARSH Administration Amlodipine Besylate 5 mg 02/09/24 21:00 02/09/24 20:23 Amlodipine 5 Mg Tab PO 5 mg HS ADARSH Administration Escitalopram Oxalate 20 mg 02/09/24 21:00 02/09/24 20:23 Escitalopram 20 Mg Tab PO 20 mg HS ADARSH Administration Gabapentin 100 mg 02/09/24 21:00 02/09/24 20:23 Gabapentin 100 Mg Cap PO 100 mg BID ADARSH Administration Levothyroxine Sodium 50 mcg 02/10/24 06:30 02/10/24 06:14 Levothyroxine 50 Mcg Tab PO 50 mcg 0630 ADARSH Administration Morphine Sulfate 15 mg 02/09/24 21:00 02/09/24 20:22 Morphine Sulfate Er 15 Mg Tablet PO 15 mg Q12HR ADARSH Administration Protocol Naloxone HCl 0.2 mg 02/09/24 16:14 Naloxone 0.4 Mg/Ml 1 Ml Vial IV Q2M PRN Opioid Reversal Oxycodone/Acetaminophen 1 each 02/09/24 17:22 02/10/24 03:55 Oxycodone-Apap 10-325mg 1 Each Tab PO 1 each BID PRN Administration Breakthrough Pain Pantoprazole Sodium 40 mg 02/10/24 09:00 Pantoprazole 40 Mg Tablet PO DAILY ADARSH Quetiapine Fumarate 300 mg 02/09/24 21:00 02/09/24 20:22 Quetiapine 100 Mg Tab PO 300 mg HS ADARSH Administration Tizanidine HCl 2 mg 02/09/24 22:00 02/09/24 20:23 Tizanidine 4 Mg Tab PO 2 mg TID ADARSH Administration 02/09/24 10:53 02/09/24 10:53
[2024-02-10 11:20] LABS: Basophils % (A) 1 %; Eosinophils # (A) 0.2 k/uL (0-0.7); Eosinophils % (A) 6 %; HCT 32.2 % (34.0-46.0); Hypochromasia Slight; Lymphocytes # (A) 0.7 k/uL (1.0-4.8); Lymphocytes % (A) 24 %; MCH 26.3 pg (25.0-35.0); MCV 84.8 fL (80.0-100.0); Mean Platelet Volume 9.4; Monocytes # (A) 0.2 k/uL (0-1.0); Monocytes % (A) 7 %; Neutrophils # (A) 1.8 k/uL (1.3-7.7); Neutrophils % (A) 60 %; Platelet Count 125 k/uL (150-450); RDW 14.2 % (11.5-15.5); WBC 2.9 k/uL (3.8-10.6)
[2024-02-10 11:46] LABS: ALT 227 U/L (4-34); AST 104 U/L (14-36); African American GFR (CKD) >90 (>60 ml/min/1.73 sqM); Albumin 3.3 g/dL (3.5-5.0); Alkaline Phosphatase 133 U/L (38-126); Anion Gap 1 mmol/L; Bilirubin, Delta 0.2 mg/dL (0.0-0.2); Bilirubin,Unconjugated 0.1 mg/dL (0.0-1.1); Blood Urea Nitrogen 14 mg/dL (7-17); Calcium 8.8 mg/dL (8.4-10.2); Carbon Dioxide 33 mmol/L (22-30); Chloride 104 mmol/L (98-107); Glucose 84 mg/dL (74-99); Magnesium 1.7 mg/dL (1.6-2.3); Non-African American GFR(CKD) >90 (>60 ml/min/1.73 sqM); Potassium 4.5 mmol/L (3.5-5.1); Sodium 138 mmol/L (137-145); Total Bilirubin 0.3 mg/dL (0.2-1.3)
[2024-02-10 12:03] VITALS: BP 100/64; PULSE 69; RESP 16
--- NOTE | 2024-02-10 13:09 | CA ---
Transthoracic Echo Report Name: Shaista Johnson Age: 43 Gender: F : 1980 Exam Date: 02/10/2024 11:43 Exam Location: [facility] Ht (in): 63 Wt (lb): 160 Ordering Physician: Mackenzie Hansen Attending/Referring Phys: [id number], [place] [employer] Assurance Assessor Yuli Perkins RDCS Procedure CPT: Indications: LVF Cardiac Hx: Technical Quality: Good Contrast 1: Total Dose (mL): Contrast 2: Total Dose (mL): MEASUREMENTS (Male / Female) Normal Values 2D ECHO LV Diastolic Diameter PLAX 4.5 cm 4.2 - 5.9 / 3.9 - 5.3 cm LV Systolic Diameter PLAX 2.6 cm IVS Diastolic Thickness 1.0 cm 0.6 - 1.0 / 0.6 - 0.9 cm LVPW Diastolic Thickness 1.0 cm 0.6 - 1.0 / 0.6 - 0.9 cm LV Relative Wall Thickness 0.5 RV Internal Dim ED PLAX 3.1 cm LVOT Diameter 2.0 cm LV Diastolic Volume MOD BP 101.5 cm??? 67 - 155 / 56 - 104 cm??? LV Systolic Volume MOD BP 41.4 cm??? 22 - 58 / 19 - 49 cm??? LV Ejection Fraction MOD BP 59.2 % >= 55 % LV Cardiac Index MOD BP 1916.9 cm???/min???m??? LV Diastolic Volume MOD 4C 104.2 cm??? LV Systolic Volume MOD 4C 42.4 cm??? LV Ejection Fraction MOD 4C 59.3 % LV Cardiac Index MOD 4C 1971.9 cm???/min???m??? LV Diastolic Length 4C 7.8 cm LV Systolic Length 4C 6.1 cm LV Diastolic Volume MOD 2C 97.3 cm??? LV Systolic Volume MOD 2C 38.4 cm??? LV Ejection Fraction MOD 2C 60.5 % LV Cardiac Index MOD 2C 1878.4 cm???/min???m??? LV Diastolic Length 2C 8.0 cm LV Systolic Length 2C 6.5 cm LA Volume 54.4 cm??? 18 - 58 / 22 - 52 cm??? LA Volume Index 29.9 cm???/m??? 16 - 28 cm???/m??? Ascending Aorta Diameter 2.9 cm DOPPLER AV Peak Velocity 139.0 cm/s AV Peak Gradient 7.7 mmHg AV Mean Velocity 92.4 cm/s AV Mean Gradient 4.0 mmHg AV Velocity Time Integral 30.3 cm LVOT Peak Velocity 111.6 cm/s LVOT Peak Gradient 5.0 mmHg LVOT Velocity Time Integral 22.2 cm LVOT Stroke Volume 67.2 cm??? LVOT Stroke Volume Index 38.2 ml/m??? LVOT Cardiac Index 2145.4 cm???/min???m??? AV Area Cont Eq vti 2.2 cm??? AV Area Cont Eq pk 2.4 cm??? MV Area PHT 4.9 cm??? Mitral E Point Velocity 68.4 cm/s Mitral A Point Velocity 67.3 cm/s Mitral E to A Ratio 1.0 MV Deceleration Time 155.6 ms TR Peak Velocity 224.4 cm/s TR Peak Gradient 20.1 mmHg Right Atrial Pressure 5.0 mmHg Pulmonary Artery Systolic Pressu 25.1 mmHg Right Ventricular Systolic Press 25.1 mmHg PV Peak Velocity 68.9 cm/s PV Peak Gradient 1.9 mmHg FINDINGS Left Ventricle Left ventricular ejection fraction is estimated at 55-60 %. Mildly increased septal wall thickness. Left ventricular cavity size normal. No obvious regional wall motion abnormalities. Right Ventricle Normal right ventricular size and function. Right ventricular systolic pressure within normal limits. Right Atrium Normal right atrial size. Left Atrium Mildly increased left atrial volume. Mitral Valve Structurally normal mitral valve. No evidence for mitral valve prolapse. No mitral stenosis. Trace mitral regurgitation. Aortic Valve Trileaflet aortic valve. No aortic valve stenosis or regurgitation. Tricuspid Valve Structurally normal tricuspid valve. No tricuspid stenosis. Mild tricuspid regurgitation. Pulmonic Valve Structurally normal pulmonic valve. No pulmonic regurgitation. Pericardium No pericardial effusion. Aorta Normal size aortic root and proximal ascending aorta. CONCLUSIONS Normal left ventricular ejection fraction 55-60% Mild increased left ventricular wall thickness Trace mitral regurgitation Mild tricuspid regurgitation No pericardial effusion Previewed by: Dr. Frank Urrutia DO (Electronically Signed) Final Date: 10 Feb 2024 13:07
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
== END 2024-02-10 15:34 | disposition home or self-care (01) ==
LOC: EC 09:16 → 3SCARD 16:15
PROVIDERS: ADMIT Internal Medicine; ATTEND Internal Medicine
DX: G93.41 Metabolic encephalopathy (principal); I10 Essential (primary) hypertension; K21.9 Gastro-esophageal reflux disease without esophagitis; D61.818 Other pancytopenia; F19.10 Other psychoactive substance abuse, uncomplicated; R74.01 Elevation of levels of liver transaminase levels; R79.89 Other specified abnormal findings of blood chemistry; F11.20 Opioid dependence, uncomplicated; F14.90 Cocaine use, unspecified, uncomplicated; G89.29 Other chronic pain; M54.9 Dorsalgia, unspecified; F31.9 Bipolar disorder, unspecified; Z79.890 Hormone replacement therapy; Z79.899 Other long term (current) drug therapy; Z88.0 Allergy status to penicillin; Z88.5 Allergy status to narcotic agent; Z88.6 Allergy status to analgesic agent; Z88.8 Allergy status to other drugs, medicaments and biological substances; Z89.512 Acquired absence of left leg below knee; Z87.828 Personal history of other (healed) physical injury and trauma; Z87.891 Personal history of nicotine dependence
CPT/HCPCS: 96374; 96375; 99285; 36415; 93005; 93306; 84439; 80053; 80048; 80076; 80074; 84443; 82140; 83735; 84484 ×2; 85025 ×2; 85610; 85730; 81001; 80306; 80143; 71046; 70450; 74177; G0378 ×2; G0480; J2270; J1170; Q9967; 80320

== ENCOUNTER 2024-03-10 18:13 | Emergency (ER) | payer MEDICARE ==
--- NOTE | 2024-03-10 18:41 | ED ---
Back Pain HPI - General Chief Complaint: Back Pain/Injury Stated Complaint: neck/back pain Time Seen by Provider: 03/10/24 18:37 Source: patient, RN notes reviewed Limitations: no limitations - History of Present Illness Initial Comments: 43-year-old female presented to the ED with complaints of neck pain and back pain. Patient reports pain is chronic in nature and is scheduled to get surgery with Dr. Tan awaiting clearance from insurance. Denies any new injury or trauma. States home meds are not helping with pain prompting presentation to the ED for further evaluation. Denies saddle anesthesia or incontinence. Denies fever or chills. No abdominal pain. No chest pain shortness of breath. No other complaints at this time. - Related Data Home Medications Medication Instructions Recorded Confirmed Albuterol Inhaler [Ventolin Hfa 1 puff INHALATION RT-Q4H PRN 11/21/23 02/09/24 Inhaler] Escitalopram [Lexapro] 20 mg PO HS 11/21/23 02/09/24 Gabapentin [Neurontin] 100 mg PO BID 11/21/23 02/09/24 Levothyroxine Sodium [Synthroid] 50 mcg PO DAILY 11/21/23 02/09/24 Morphine Sulfate ER [Ms Contin] 15 mg PO Q12HR 11/21/23 02/09/24 Pantoprazole [Protonix] 40 mg PO DAILY 11/21/23 02/09/24 Amitriptyline HCl [Elavil] 25 mg PO HS 02/09/24 02/09/24 Butalb/APAP/Caff 50-325-40Mg 1 tab PO Q4H PRN 02/09/24 02/09/24 [Fioricet 50-325-40] Naloxone HCl [Narcan] 4 mg NASAL DIRECTED PRN 02/09/24 02/09/24 QUEtiapine FUMARATE [SEROquel] 300 mg PO HS 02/09/24 02/09/24 amLODIPine [Norvasc] 5 mg PO HS 02/09/24 02/09/24 Previous Rx's Medication Instructions Recorded oxyCODONE-APAP 10-325MG [Percocet 1 tab PO BID PRN #0 02/10/24 10-325 mg] tiZANidine [Zanaflex] 2 mg PO TID #0 05/24/24 Allergies Allergy/AdvReac Type Severity Reaction Status Date / Time acetaminophen Allergy Rapid Verified 03/10/24 18:30 [From Tylenol-Codeine #3] Heart Rate amoxicillin Allergy Swelling Verified 03/10/24 18:30 codeine phosphate Allergy Rapid Verified 03/10/24 18:30 [From Tylenol-Codeine #3] Heart Rate hydrocortisone Allergy Rash/Hives Verified 03/10/24 18:30 Penicillins Allergy Swelling Verified 03/10/24 18:30 pregabalin [From Lyrica] Allergy Dizziness Verified 03/10/24 18:30 venlafaxine HCl Allergy Rapid Verified 03/10/24 18:30 [From Effexor] Heart Rate codeine AdvReac Unknown Verified 03/10/24 18:30 [From Tylenol-Codeine #3] venlafaxine [From Effexor] AdvReac Rapid Verified 03/10/24 18:30 Heart Rate Review of Systems ROS Statement: Those systems with pertinent positive or pertinent negative responses have been documented in the HPI. ROS Other: All systems not noted in ROS Statement are negative. Past Medical History Past Medical History: GERD/Reflux, Sleep Apnea/CPAP/BIPAP, Thyroid Disorder Additional Past Medical History / Comment(s): Congenital hip dislocation at , back pain , headaches History of Any Multi-Drug Resistant Organisms: None Reported Date of last positivie culture/infection: 2007 MDRO Source:: left arm Past Surgical History: Cholecystectomy, Hysterectomy, Orthopedic Surgery, Tubal Ligation Additional Past Surgical History / Comment(s): Neck fusions, 12 hip surgeries, above knee left leg amputation 2022. Past Anesthesia/Blood Transfusion Reactions: No Reported Reaction Past Psychological History: Bipolar, Depression Smoking Status: Former smoker Past Alcohol Use History: None Reported Past Drug Use History: Marijuana - Past Family History Mother Family Medical History: Cancer General Exam - General Exam Comments Initial Comments: Visual Physical Exam Vital signs reviewed General: Well-appearing, nontoxic, no acute distress. Head: Normocephalic, atraumatic Eyes: PERRLA, EOMI ENT: Airway patent Chest: Nonlabored breathing Skin: No visual rash, normal skin tone Neuro: Alert and oriented 3 Musculoskeletal: No gross abnormalities Limitations: no limitations General appearance: alert, in no apparent distress Eye exam: Present: normal appearance Neck exam: Present: normal inspection Respiratory exam: Present: normal lung sounds bilaterally Cardiovascular Exam: Present: regular rate GI/Abdominal exam: Present: soft, normal bowel sounds. Absent: distended, tenderness, guarding, rebound, rigid Extremities exam: Present: normal inspection, other (Strength and sensation bilateral upper extremities intact.) Back exam: Present: other (No midline spinal tenderness to palpation.) Neurological exam: Present: alert, oriented X3 Skin exam: Present: warm, dry Course Vital Signs 03/10/24 18:25 Temperature 98.3 F Pulse Rate 88 Respiratory 16 Rate Blood Pressure 127/88 O2 Sat by Pulse 97 Oximetry Medical Decision Making - Medical Decision Making Was pt. sent in by a medical professional or institution (, PA, SENIOR SAFETY MANAGEMENT CONSULTANT, urgent care, hospital, or residential...) When possible be specific @ -No Did you speak to anyone other than the patient for history (EMS, parent, family, police, friend...)? What history was obtained from this source @ -No Did you review nursing and triage notes (agree or disagree)? Why? @ -I reviewed and agree with nursing and triage notes Were old charts reviewed (outside hosp., previous admission, EMS record, old EKG, old radiological studies, urgent care reports/EKG's, residential records)? Report findings @ -No old charts were reviewed Differential Diagnosis (chest pain, altered mental status, abdominal pain women, abdominal pain men, vaginal bleeding, weakness, fever, dyspnea, syncope, headache, dizziness, GI bleed, back pain, seizure, CVA, palpatations, mental health, musculoskeletal)? @ -Differential Musculoskeletal Muscular strain, contusion, ligament sprain, fracture, arthritis, septic arthritis, bursitis, cellulitis, muscle spasm, nerve compression, DVT, arterial occlusion, herpes zoster, electrolyte abnormality, tumor.... This is not meant to be in all inclusive list EKG interpreted by me (3pts min.). @ -None X-rays interpreted by me (1pt min.). @ -None done CT interpreted by me (1pt min.). @ -None done U/S interpreted by me (1pt. min.). @ -None done What testing was considered but not performed or refused? (CT, X-rays, U/S, labs)? Why? @ -Imaging studies were considered however patient reports no new injury or trauma and states that this pain is chronic in nature. What meds were considered but not given or refused? Why? @ -None Did you discuss the management of the patient with other professionals (professionals i.e. Dr., PA, SENIOR SAFETY MANAGEMENT CONSULTANT, lab, RT, psych nurse, social media campaign manager, soil science teacher, teacher, air defense artillery officer, leather case finisher)? Give summary @ -No Was smoking cessation discussed for >3mins.? @ -No Was critical care preformed (if so, how long)? @ -No Were there social determinants of health that impacted care today? How? (Homelessness, low income, unemployed, alcoholism, drug addiction, transportation, low edu. Level, literacy, decrease access to med. care, [facility], rehab)? @ -No Was there de-escalation of care discussed even if they declined (Discuss DNR or withdrawal of care, Hospice)? DNR status @ -No What co-morbidities impacted this encounter? (DM, HTN, Smoking, COPD, CAD, Cancer, CVA, ARF, Chemo, Hep., AIDS, mental health diagnosis, sleep apnea, morbid obesity)? @ -None Was patient admitted / discharged? Hospital course, mention meds given and route, prescriptions, significant lab abnormalities, going to OR and other pertinent info. @ -Discharge 43-year-old female presenting to the ED with complaints of neck pain. Patient reports that this is chronic in nature and is pending surgery with Dr. Tan however reports pain medications at home have not been helping prompting presentation to the ED for further evaluation. No saddle anesthesia or incontinence or alarm symptoms. Exam benign. Patient provided analgesia and discharged home in stable condition with instructions to follow-up with Dr. Tan. Discussed return precautions patient verbalized agreement. Undiagnosed new problem with uncertain prognosis? @ -No Drug Therapy requiring intensive monitoring for toxicity (Heparin, Nitro, Insulin, Cardizem)? @ -No Were any procedures done? @ -No Diagnosis/symptom? @ -Neck pain Acute, or Chronic, or Acute on Chronic? @ -Acute on chronic Uncomplicated (without systemic symptoms) or Complicated (systemic symptoms)? @ -Uncomplicated Side effects of treatment? @ -No Exacerbation, Progression, or Severe Exacerbation? @ -No Poses a threat to life or bodily function? How? (Chest pain, [place], [place], pneumonia, PE, COPD, DKA, ARF, appy, cholecystitis, CVA, Diverticulitis, Homicidal, Suicidal, threat to staff... and all critical care pts) @ -No Disposition Clinical Impression: Neck pain Disposition: HOME SELF-CARE Condition: Good Additional Instructions: Please return to the Emergency Department if symptoms worsen or any other concerns. Please follow-up with your primary care provider and Dr. Tan. Is patient prescribed a controlled substance at d/c from ED?: No Referrals: Nora Tellez MD [Primary Care Provider] - 1-2 days Time of Disposition: 19:40
[2024-03-10] MEDS: KETOROLAC 15 MG/ML 1 ML VIAL IM STA (21:34)
[2024-03-10] MEDS: HYDROmorphone 1 MG/ML 1 ML SYRINGE IM STA (21:35)
[2024-03-10 21:41] VITALS: BP 128/84; PULSE 86; RESP 17; TEMP 98.2
== END 2024-03-10 21:47 | disposition home or self-care (01) ==
LOC: EC 18:13
DX: M54.2 Cervicalgia (principal); Z87.891 Personal history of nicotine dependence; Z88.0 Allergy status to penicillin; Z88.5 Allergy status to narcotic agent; Z88.8 Allergy status to other drugs, medicaments and biological substances
CPT/HCPCS: 99283; 96372 ×2; J1170; J1885

== ENCOUNTER 2024-03-12 00:40 | Emergency (ER) | payer MEDICARE, OTHER ==
[2024-03-12 01:20] VITALS: TEMP 98
--- NOTE | 2024-03-12 01:20 | ED ---
General Adult HPI - General Source: RN notes reviewed <Mohsen De Jesus - Last Filed: 03/12/24 01:21> - General Source: RN notes reviewed, old records reviewed Mode of arrival: ambulatory Limitations: no limitations - History of Present Illness -: days(s) Consistency: constant Improves with: none Worsens with: cold therapy Associated Symptoms: weakness Treatments Prior to Arrival: none <Kristian Paniagua - Last Filed: 03/23/24 22:16> - General Stated complaint: Back Pain Time Seen by Provider: 03/12/24 01:20 - History of Present Illness Initial comments: Quick note Patient with a history of chronic back pain presenting to the ED with complaints of back pain. No new injury or trauma. No saddle anesthesia or incontinence. (Mohsen De Jesus) This is a 43-year-old female to the ER for evaluation of chest pain today. Patient has chest pain here in the emergency department with persistent chest pain severe back pain chronic back pain no new trauma. Admits to not having pain medication at home currently (Kristian Paniagua) - Related Data Home Medications Medication Instructions Recorded Confirmed Albuterol Inhaler [Ventolin Hfa 1 puff INHALATION RT-Q4H PRN 11/21/23 03/14/24 Inhaler] Escitalopram [Lexapro] 20 mg PO HS 11/21/23 03/14/24 Gabapentin [Neurontin] 200 mg PO TID 11/21/23 03/14/24 Levothyroxine Sodium [Synthroid] 50 mcg PO DAILY 11/21/23 03/14/24 Morphine Sulfate ER [Ms Contin] 15 mg PO Q12HR 11/21/23 03/14/24 Pantoprazole [Protonix] 40 mg PO DAILY 11/21/23 03/14/24 Amitriptyline HCl [Elavil] 25 mg PO HS 02/09/24 03/14/24 Butalb/APAP/Caff 50-325-40Mg 1 tab PO Q4H PRN 02/09/24 03/14/24 [Fioricet 50-325-40] Naloxone HCl [Narcan] 4 mg NASAL DIRECTED PRN 02/09/24 03/14/24 QUEtiapine FUMARATE [SEROquel] 300 mg PO HS 02/09/24 03/14/24 amLODIPine [Norvasc] 5 mg PO HS 02/09/24 03/14/24 Previous Rx's Medication Instructions Recorded oxyCODONE-APAP 10-325MG [Percocet 1 tab PO BID PRN #0 02/10/24 10-325 mg] tiZANidine [Zanaflex] 2 mg PO TID #0 02/10/24 Allergies Allergy/AdvReac Type Severity Reaction Status Date / Time amoxicillin Allergy Swelling Verified 03/20/24 06:33 hydrocortisone Allergy Rash/Hives Verified 03/20/24 06:33 Penicillins Allergy Swelling Verified 03/20/24 06:33 pregabalin [From Lyrica] Allergy Dizziness Verified 03/20/24 06:33 codeine AdvReac Rapid Verified 03/20/24 06:33 [From Tylenol-Codeine #3] Heart Rate codeine phosphate AdvReac Rapid Verified 03/20/24 06:33 [From Tylenol-Codeine #3] Heart Rate venlafaxine [From Effexor] AdvReac Rapid Verified 03/20/24 06:33 Heart Rate venlafaxine HCl AdvReac Rapid Verified 03/20/24 06:33 [From Effexor] Heart Rate Review of Systems ROS Other: All systems not noted in ROS Statement are negative. <Mohsen De Jesus - Last Filed: 03/12/24 01:21> ROS Other: All systems not noted in ROS Statement are negative. <Kristian Paniagua - Last Filed: 03/23/24 22:16> ROS Statement: Those systems with pertinent positive or pertinent negative responses have been documented in the HPI. Past Medical History Past Medical History: GERD/Reflux, Sleep Apnea/CPAP/BIPAP, Thyroid Disorder Additional Past Medical History / Comment(s): Congenital hip dislocation at , back pain , headaches History of Any Multi-Drug Resistant Organisms: None Reported Date of last positivie culture/infection: 2007 MDRO Source:: left arm Past Surgical History: Cholecystectomy, Hysterectomy, Orthopedic Surgery, Tubal Ligation Additional Past Surgical History / Comment(s): Neck fusions, 12 hip surgeries, above knee left leg amputation 2022. Past Anesthesia/Blood Transfusion Reactions: No Reported Reaction Past Psychological History: Bipolar, Depression Smoking Status: Former smoker Past Alcohol Use History: None Reported Past Drug Use History: Marijuana - Past Family History Mother Family Medical History: Cancer <Mohsen De Jesus - Last Filed: 03/12/24 01:21> General Exam <Mohsen De Jesus - Last Filed: 03/12/24 01:21> General appearance: alert, in no apparent distress Head exam: Present: atraumatic, normocephalic, normal inspection Eye exam: Present: normal appearance, PERRL, EOMI. Absent: scleral icterus, conjunctival injection, periorbital swelling ENT exam: Present: normal exam, mucous membranes moist Neck exam: Present: normal inspection. Absent: tenderness, meningismus, lymphadenopathy Respiratory exam: Present: normal lung sounds bilaterally. Absent: respiratory distress, wheezes, rales, rhonchi, stridor Cardiovascular Exam: Present: regular rate, normal rhythm, normal heart sounds. Absent: systolic murmur, diastolic murmur, rubs, gallop, clicks GI/Abdominal exam: Present: soft, normal bowel sounds. Absent: distended, tenderness, guarding, rebound, rigid Extremities exam: Present: normal inspection, full ROM, normal capillary refill. Absent: tenderness, pedal edema, joint swelling, calf tenderness Back exam: Present: normal inspection Neurological exam: Present: alert, oriented X3, CN II-XII intact Psychiatric exam: Present: normal affect, normal mood Skin exam: Present: warm, dry, intact, normal color. Absent: rash <Kristian Paniagua - Last Filed: 03/23/24 22:16> - General Exam Comments Initial Comments: Visual Physical Exam Vital signs reviewed General: Well-appearing, nontoxic, no acute distress. Head: Normocephalic, atraumatic Eyes: PERRLA, EOMI ENT: Airway patent Chest: Nonlabored breathing Skin: No visual rash, normal skin tone Neuro: Alert and oriented 3 (Mohsen De Jesus) Course <Kristian Paniagua - Last Filed: 03/23/24 22:16> Vital Signs 03/12/24 03/12/24 03/12/24 01:11 02:37 03:20 Temperature 98.0 F 98.0 F Pulse Rate 70 72 71 Respiratory 16 18 16 Rate Blood Pressure 131/80 145/95 145/89 O2 Sat by Pulse 98 99 98 Oximetry - Reevaluation(s) Reevaluation #1: 03/12/24 02:34 Medical records reviewed (Kristian Paniagua) Reevaluation #2: 03/12/24 02:34 Patient symptoms unchanged (Kristian Paniagua) Reevaluation #3: 03/12/24 02:34 Patient informed of results and questions answered (Kristian Paniagua) Reevaluation #4: Was pt. sent in by a medical professional or institution ([facility] [place], FILTER WASHER [employer] PRESSER, urgent care, hospital, or shelter...) When possible be specific @ -no Did you speak to anyone other than the patient for history (EMS, parent, family, police, friend...)? What history was obtained from this source @ -no Did you review nursing and triage notes (agree or disagree)? Why? @ -agree Are old charts reviewed (outside hosp., previous admission, EMS record, old EKG, old radiological studies, urgent care reports/EKG's, shelter records)? Report findings @ -yes Differential Diagnosis (chest pain, altered mental status, abdominal pain women, abdominal pain men, vaginal bleeding, weakness, fever, dyspnea, syncope, headache, dizziness, GI bleed, back pain, seizure, CVA, palpatations, mental health, musculoskeletal)? @ -prior EKG interpreted by me (3pts min.). @ -no X-rays interpreted by me (1pt min.). @ -no CT interpreted by me (1pt min.). @ -no U/S interpreted by me (1pt. min.). @ -no What testing was considered but not performed or refused? (CT, X-rays, U/S, labs)? Why? @ -none What meds were considered but not given or refused? Why? @ -none Did you discuss the management of the patient with other professionals (professionals i.e. [facility] [place], [employer]TER W[employer]ER [employer]ER, lab, RT, psych nurse, health care social worker, shoe stitcher, teacher, intelligence officer, case preparer and liner)? Give summary @ -no Was smoking cessation discussed for >3mins.? @ -no Was critical care preformed (if so, how long)? @ -no Were there social determinants of health that impacted care today? How? (Homelessness, low income, unemployed, alcoholism, drug addiction, transportation, low edu. Level, literacy, decrease access to med. care, [facility], rehab)? @ -none Was there de-escalation of care discussed even if they declined (Discuss DNR or withdrawal of care, Hospice)? DNR status @ -no What co-morbidities impacted this encounter? (DM, HTN, Smoking, COPD, CAD, C ancer, CVA, ARF, Chemo, Hep., AIDS, mental health diagnosis, sleep apnea, morbid obesity)? @ -none Was patient admitted / discharged? Hospital course, mention meds given and route, prescriptions, significant lab abnormalities, going to OR and other pertinent info. @ - 43 female with severe back pain with adequate cramping and pain control. A no neurological symptoms and patient can be discharged Discharge Undiagnosed new problem with uncertain prognosis? @ -no Drug Therapy requiring intensive monitoring for toxicity (Heparin, Nitro, Insulin, Cardizem)? @ -no Were any procedures done? @ -no Diagnosis/symptom? @ -Acute on chronic back pain Acute, or Chronic, or Acute on Chronic? @ -Acute Uncomplicated (without systemic symptoms) or Complicated (systemic symptoms)? @ -Complicated Side effects of treatment? @ -no Exacerbation, Progression, or Severe Exacerbation? @ -exacerbation Poses a threat to life or bodily function? How? (Chest pain, [place], [place], pneumonia, PE, COPD, DKA, ARF, appy, cholecystitis, CVA, Diverticulitis, Homicidal, Suicidal, threat to staff... and all critical care pts) @ -yes because of back pain (Kristian Paniagua) Reevaluation #5: Differential Back Pain: Strain, zoster, cauda equina syndrome, epidural abscess, vertebral osteomyelitis, discitis, fracture, subluxation, disc herniation, DJD, spinal stenosis, dissection, AAA, pancreatitis, peptic ulcer disease, pyelonephritis, kidney stone, this is not meant to be an all-inclusive list. (Kristian Paniagua) Medical Decision Making <Mohsen De Jesus - Last Filed: 03/12/24 01:21> <Kristian Paniagua - Last Filed: 03/23/24 22:16> - Medical Decision Making Quicknote portion performed. Signed Mohsen De Jesus PA-C (Mohsen De Jesus) 43 female with severe back pain with adequate cramping and pain control. A no neurological symptoms and patient can be discharged (Kristian Paniagua) Disposition <Mohsen De Jesus - Last Filed: 03/12/24 01:21> Is patient prescribed a controlled substance at d/c from ED?: No Time of Disposition: 02:20 <Kristian Paniagua - Last Filed: 03/23/24 22:16> Clinical Impression: Mechanical back pain, Chronic back pain Disposition: HOME SELF-CARE Condition: Good Instructions (If sedation given, give patient instructions): Acute Low Back Pain (ED) Referrals: Nora Tellez MD [Primary Care Provider] - 1-2 days
[2024-03-12] MEDS: HYDROmorphone 1 MG/ML 1 ML SYRINGE IM STA (02:36)
[2024-03-12 03:23] VITALS: BP 145/89; PULSE 71; RESP 16
[2024-03-12] MEDS: traMADol 50 MG STARTER PACK 3 TAB BTL PO STA (03:28)
== END 2024-03-12 03:38 | disposition home or self-care (01) ==
LOC: EC 00:40
DX: G89.29 Other chronic pain (principal); M54.9 Dorsalgia, unspecified; F12.90 Cannabis use, unspecified, uncomplicated; Z88.0 Allergy status to penicillin; Z88.6 Allergy status to analgesic agent; Z87.891 Personal history of nicotine dependence; Z88.5 Allergy status to narcotic agent
CPT/HCPCS: 99283; 96372; J1170

== ENCOUNTER 2024-03-13 17:50 | Inpatient (IN) | payer MEDICARE, OTHER ==
[2024-03-13] MEDS: SODIUM CHLORIDE 0.9% 1,000 ML IV STA (20:27)
[2024-03-13] MEDS: HYDROmorphone 1 MG/ML 1 ML SYRINGE IVP STA (20:31)
--- NOTE | 2024-03-13 21:25 | ED ---
General Adult HPI - General Chief complaint: Neck Pain/Injury Stated complaint: pain in neck/legs and arms Time Seen by Provider: 03/13/24 19:15 Source: patient Mode of arrival: ambulatory Limitations: no limitations - History of Present Illness Initial comments: 43-year-old female with prior hardware in the cervical and thoracic spine reports that she follows with Dr. Tan, presenting to the ED with a chief complaint of back pain. This is patient's third visit here for the same complaint on the consecutive 3 days. Reports that she has been having upper back and neck pain. Also notes left shoulder pain. Secondary to the pain reports she is unable to completely range her left arm. No saddle anesthesia or incontinence. No fever or chills. No chest pain or shortness of breath. No other complaints at this time. - Related Data Home Medications Medication Instructions Recorded Confirmed Albuterol Inhaler [Ventolin Hfa 1 puff INHALATION RT-Q4H PRN 11/21/23 02/09/24 Inhaler] Escitalopram [Lexapro] 20 mg PO HS 11/21/23 02/09/24 Gabapentin [Neurontin] 100 mg PO BID 11/21/23 02/09/24 Levothyroxine Sodium [Synthroid] 50 mcg PO DAILY 11/21/23 02/09/24 Morphine Sulfate ER [Ms Contin] 15 mg PO Q12HR 11/21/23 02/09/24 Pantoprazole [Protonix] 40 mg PO DAILY 11/21/23 02/09/24 Amitriptyline HCl [Elavil] 25 mg PO HS 02/09/24 02/09/24 Butalb/APAP/Caff 50-325-40Mg 1 tab PO Q4H PRN 02/09/24 02/09/24 [Fioricet 50-325-40] Naloxone HCl [Narcan] 4 mg NASAL DIRECTED PRN 02/09/24 02/09/24 QUEtiapine FUMARATE [SEROquel] 300 mg PO HS 02/09/24 02/09/24 amLODIPine [Norvasc] 5 mg PO HS 02/09/24 02/09/24 Previous Rx's Medication Instructions Recorded oxyCODONE-APAP 10-325MG [Percocet 1 tab PO BID PRN #0 02/10/24 10-325 mg] tiZANidine [Zanaflex] 2 mg PO TID #0 02/10/24 Allergies Allergy/AdvReac Type Severity Reaction Status Date / Time acetaminophen Allergy Rapid Verified 03/13/24 17:59 [From Tylenol-Codeine #3] Heart Rate amoxicillin Allergy Swelling Verified 03/13/24 17:59 codeine phosphate Allergy Rapid Verified 03/13/24 17:59 [From Tylenol-Codeine #3] Heart Rate hydrocortisone Allergy Rash/Hives Verified 03/13/24 17:59 Penicillins Allergy Swelling Verified 03/13/24 17:59 pregabalin [From Lyrica] Allergy Dizziness Verified 03/13/24 17:59 venlafaxine HCl Allergy Rapid Verified 03/13/24 17:59 [From Effexor] Heart Rate codeine AdvReac Unknown Verified 03/13/24 17:59 [From Tylenol-Codeine #3] venlafaxine [From Effexor] AdvReac Rapid Verified 03/13/24 17:59 Heart Rate Review of Systems ROS Statement: Those systems with pertinent positive or pertinent negative responses have been documented in the HPI. ROS Other: All systems not noted in ROS Statement are negative. Past Medical History Past Medical History: GERD/Reflux, Sleep Apnea/CPAP/BIPAP, Thyroid Disorder Additional Past Medical History / Comment(s): Congenital hip dislocation at , back pain , headaches History of Any Multi-Drug Resistant Organisms: None Reported Date of last positivie culture/infection: 2007 MDRO Source:: left arm Past Surgical History: Cholecystectomy, Hysterectomy, Orthopedic Surgery, Tubal Ligation Additional Past Surgical History / Comment(s): Neck fusions, 12 hip surgeries, above knee left leg amputation 2022. Past Anesthesia/Blood Transfusion Reactions: No Reported Reaction Past Psychological History: Bipolar, Depression Smoking Status: Former smoker Past Alcohol Use History: None Reported Past Drug Use History: Marijuana - Past Family History Mother Family Medical History: Cancer General Exam Limitations: no limitations General appearance: alert, in no apparent distress Eye exam: Present: normal appearance Neck exam: Present: normal inspection Respiratory exam: Present: normal lung sounds bilaterally Cardiovascular Exam: Present: regular rate GI/Abdominal exam: Present: soft, normal bowel sounds. Absent: distended, tenderness, guarding, rebound, rigid Extremities exam: Present: other (Strength and sensation intact of bilateral upper extremities. Radial pulses intact. There is an amputation of the left lower extremity.) Back exam: Present: other (Midline cervical and thoracic tenderness to palpation.) Neurological exam: Present: alert, oriented X3 Skin exam: Present: warm, dry Course Vital Signs 03/13/24 03/13/24 17:56 21:25 Temperature 98 F 98.8 F Pulse Rate 87 78 Respiratory 18 18 Rate Blood Pressure 135/94 136/87 O2 Sat by Pulse 99 96 Oximetry Medical Decision Making - Medical Decision Making Was pt. sent in by a medical professional or institution (, PA, DITCHING MACHINE OPERATOR, urgent care, hospital, or [facility]...) When possible be specific @ -Patient reports she was advised by Dr. Tan's office to present to the ED for further evaluation. Did you speak to anyone other than the patient for history (EMS, parent, family, police, friend...)? What history was obtained from this source @ -No Did you review nursing and triage notes (agree or disagree)? Why? @ -I reviewed and agree with nursing and triage notes Were old charts reviewed (outside hosp., previous admission, EMS record, old EKG, old radiological studies, urgent care reports/EKG's, [facility] records)? Report findings @ -Reviewed prior charts. I saw the patient to myself 2 days ago. For further details please see prior notes. Differential Diagnosis (chest pain, altered mental status, abdominal pain women, abdominal pain men, vaginal bleeding, weakness, fever, dyspnea, syncope, headache, dizziness, GI bleed, back pain, seizure, CVA, palpatations, mental health, musculoskeletal)? @ -Differential Back Pain: Strain, zoster, cauda equina syndrome, epidural abscess, vertebral osteomyelitis, discitis, fracture, subluxation, disc herniation, DJD, spinal stenosis, dissection, AAA, pancreatitis, peptic ulcer disease, pyelonephritis, kidney stone, this is not meant to be an all-inclusive list. EKG interpreted by me (3pts min.). @ -None X-rays interpreted by me (1pt min.). @ -None done CT interpreted by me (1pt min.). @ -None done U/S interpreted by me (1pt. min.). @ -None done What testing was considered but not performed or refused? (CT, X-rays, U/S, labs)? Why? @ -None What meds were considered but not given or refused? Why? @ -None Did you discuss the management of the patient with other professionals (professionals i.e. , [facility], DITCHING MACHINE OPERATOR, lab, RT, psych nurse, geriatric social work professor, nicker, teacher, hospital chief financial officer, therapeutic case manager)? Give summary @ -Case discussed with Samuel HAGEN, of orthopedics. Advises admission to medicine with consult to orthopedics. Imaging recommendations forthcoming. Case discussed with Dr. Danielson, who accepts admission. Was smoking cessation discussed for >3mins.? @ -No Was critical care preformed (if so, how long)? @ -No Were there social determinants of health that impacted care today? How? (Homelessness, low income, unemployed, alcoholism, drug addiction, transportation, low edu. Level, literacy, decrease access to med. care, retirement, rehab)? @ -No Was there de-escalation of care discussed even if they declined (Discuss DNR or withdrawal of care, Hospice)? DNR status @ -No What co-morbidities impacted this encounter? (DM, HTN, Smoking, COPD, CAD, Cancer, CVA, ARF, Chemo, Hep., AIDS, mental health diagnosis, sleep apnea, morbid obesity)? @ -None Was patient admitted / discharged? Hospital course, mention meds given and route, prescriptions, significant lab abnormalities, going to OR and other pertinent info. @ -Admission 43-year-old female presenting to the ED with complaints of neck and back pain. This is her third visit within the last 3 days. Was advised by Dr. Tan's office to try and be admitted for pain control to see orthopedics. Patient admitted secondary to intractable pain with consult to to orthopedics. Undiagnosed new problem with uncertain prognosis? @ -No Drug Therapy requiring intensive monitoring for toxicity (Heparin, Nitro, Insulin, Cardizem)? @ -No Were any procedures done? @ -No Diagnosis/symptom? @ -Back pain, neck pain Acute, or Chronic, or Acute on Chronic? @ -Acute on chronic Uncomplicated (without systemic symptoms) or Complicated (systemic symptoms)? @ -Uncomplicated Side effects of treatment? @ -No Exacerbation, Progression, or Severe Exacerbation? @ -No Poses a threat to life or bodily function? How? (Chest pain, [place], [place], pneumonia, PE, COPD, DKA, ARF, appy, cholecystitis, CVA, Diverticulitis, Homicidal, Suicidal, threat to staff... and all critical care pts) @ -No Disposition Clinical Impression: Neck pain, Back pain Disposition: ADMITTED IP TO THIS HOSP Condition: Fair Referrals: Nora Tellez MD [Primary Care Provider] - 1-2 days Time of Disposition: 19:30
[2024-03-13] MEDS ORDERED: NALOXONE 0.4 MG/ML 1 ML VIAL IV PRN (21:30)
[2024-03-13] MEDS: SODIUM CHLORIDE 0.9% 1,000 ML IV SCH (21:43)
[2024-03-13] MEDS: KETOROLAC 15 MG/ML 1 ML VIAL IVP PRN (22:34)
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
[2024-03-14] MEDS: HYDROmorphone 1 MG/ML 1 ML SYRINGE IVP PRN (01:30)
[2024-03-14] MEDS: ONDANSETRON 4 MG/2 ML VIAL IVP PRN (05:30)
[2024-03-14] MEDS: diphenhydrAMINE 25 MG CAP PO STA (05:34)
[2024-03-14] MEDS: LEVOTHYROXINE 50 MCG TAB PO SCH (06:02)
[2024-03-14] MEDS: PANTOPRAZOLE 40 MG TABLET PO SCH (07:07)
--- NOTE | 2024-03-14 07:38 | XR ---
EXAMINATION TYPE: XR cervical spine limited DATE OF EXAM: 03/14/2024 CLINICAL HISTORY: pain TECHNIQUE: 3 views of the cervical spine are submitted. COMPARISON: None. FINDINGS: Pedicular screws at C4 and C5 as well as the C7 through at least the upper thoracic levels. No evidence for fracture or malalignment. Disc spaces within the cervical spine appear to be well pr eserved. IMPRESSION: No acute fracture or dislocation is seen in the cervical spine.
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
[2024-03-14] MEDS ORDERED: traMADol 50 MG TAB PO PRN (14:07)
[2024-03-14] MEDS: diphenhydrAMINE 50 MG/ML 1 ML VIAL IVP STA (15:05)
[2024-03-14] MEDS: HEPARIN SODIUM,PORCINE 5,000 UNIT/ML 1 ML VIAL SQ SCH (18:26)
[2024-03-14] MEDS: amLODIPine 5 MG TAB PO SCH (20:23)
[2024-03-14] MEDS: GABAPENTIN 100 MG CAP PO SCH (20:23)
[2024-03-14] MEDS: ESCITALOPRAM 20 MG TAB PO SCH (20:23)
[2024-03-14] MEDS: QUEtiapine 100 MG TAB PO SCH (20:24)
[2024-03-14] MEDS: MORPHINE SULFATE ER 15 MG TABLET PO SCH (20:24)
[2024-03-15 08:01] LABS: Basophils % (A) 1 %; Eosinophils # (A) 0.1 k/uL (0-0.7); Eosinophils % (A) 4 %; HCT 32.1 % (34.0-46.0); HGB 10.3 gm/dL (11.4-16.0); Lymphocytes # (A) 0.9 k/uL (1.0-4.8); Lymphocytes % (A) 39 %; MCH 26.8 pg (25.0-35.0); MCHC 32.2 g/dL (31.0-37.0); MCV 83.3 fL (80.0-100.0); Mean Platelet Volume 10.1; Monocytes # (A) 0.2 k/uL (0-1.0); Monocytes % (A) 10 %; Neutrophils # (A) 1.1 k/uL (1.3-7.7); Neutrophils % (A) 45 %; Platelet Count 107 k/uL (150-450); RBC 3.86 m/uL (3.80-5.40); WBC 2.4 k/uL (3.8-10.6)
[2024-03-15 08:40] LABS: African American GFR (CKD) >90 (>60 ml/min/1.73 sqM); Anion Gap 4 mmol/L; Blood Urea Nitrogen 7 mg/dL (7-17); Calcium 9.1 mg/dL (8.4-10.2); Carbon Dioxide 26 mmol/L (22-30); Chloride 108 mmol/L (98-107); Glucose 80 mg/dL (74-99); Non-African American GFR(CKD) >90 (>60 ml/min/1.73 sqM); Potassium 3.8 mmol/L (3.5-5.1); Sodium 138 mmol/L (137-145)
--- NOTE | 2024-03-15 10:27 | P.PN ---
Subjective Progress Note Date: 03/15/24 Principal diagnosis: Cervicalgia, thoracic back pain, hardware failure status post C5-T5 stabilization for T5-T6 fracture Objective - Vital Signs Vital signs: Vital Signs Temp 97.8 F 03/15/24 07:00 Pulse 68 03/15/24 07:00 Resp 17 03/15/24 07:00 BP 118/78 03/15/24 07:00 Pulse Ox 98 03/15/24 07:00 FiO2 Intake & Output 03/14/24 03/15/24 03/15/24 18:59 06:59 18:59 Intake Total 1298 118 Balance 1298 118 Weight 68.039 kg Intake: Oral 1298 118 Other: Voiding Method Toilet Toilet # Voids 3 2 - Exam Gen: AOx3, NAD VSS stable at this time Integument: Previous surgical incision is noted in the cervical/thoracic spine. There is fascial splaying noted to the skin. There are no open lesions visualized. Palpation: Patient demonstrates tenderness with palpation throughout the cervical and thoracic spine also across the shoulder blades ROM: Full range of motion in all major muscle groups of the bilateral upper extremities no focal deficits appreciated Full range of motion noted in the right lower extremity, no focal deficits, range of motion adequate with hip flexion to the left lower extremity Sensory Exam: Senory exam to light touch is intact C5-T1 Senosry exam to light touch is intact L2-S1 Motor: 4-/4 strength appreciated the bilateral upper extremities with shoulder abduction, shoulder elevation, 4/4 strength bilaterally with elbow extension, elbow flexion, wrist extension, wrist flexion, 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 3/4 strength appreciated in the left lower extremity with hip flexion 4-/4 strength appreciated in the right lower extremity with hip flexion, knee flexion, 4/4 strength appreciated in the right lower extremity with knee extension, plantarflexion, dorsiflexion, EHL, FHL Reflexes: 2/4 in all UE and LE Negative Fauzia's left upper extremity, positive right upper extremity Negative Babinski bilaterally Negative clonus right lower extremity Special Test: Logroll maneuver reproduces no pain to the right lower extremity, negative straight leg raise of the right lower extremity - Labs CBC & Chem 7: 03/15/24 07:20 03/15/24 07:20 Labs: Abnormal Lab Results - Last 24 Hours (Table) 03/15/24 03/15/24 Range/Units 07:20 07:20 WBC 2.4 L (3.8-10.6) k/uL Hgb 10.3 L (11.4-16.0) gm/dL Hct 32.1 L (34.0-46.0) % Plt Count 107 L (150-450) k/uL Neutrophils # 1.1 L (1.3-7.7) k/uL Lymphocytes # 0.9 L (1.0-4.8) k/uL Chloride 108 H (98-107) mmol/L Assessment and Plan Assessment: Cervicalgia Thoracic back pain Bilateral upper extremity weakness Hardware failure status post T5-T6 fracture and stabilization C5-T5 Plan: Plan: Planning for surgery as of 03/20/2024 Medical clearance to be obtained for surgical intervention Pain control, continue with current medications DVT prophylaxis, recommend ARLENE minor/ SCDs due to likely upcoming surgery Will continue to follow during hospital stay Time with Patient: Less than 30
[2024-03-15] MEDS: diphenhydrAMINE 25 MG CAP PO PRN (11:31)
--- NOTE | 2024-03-15 12:28 | P.PN ---
Subjective Progress Note Date: 03/15/24 Hospital course 43-year-old female with GERD bipolar disorder. Patient coming in for refractory neck pain radiating to the left upper extremity with some numbness this is chronic in nature however got worse over the past few days she has been following up with Ortho as an outpatient with plans for surgery however due to the nature of the pain and severity she decided to come in today for reevaluation she had multiple visits to the ED over the past couple days for the same problem of severe worsening neck pain. Patient seen by orthopedic surgery who said patient has hardware failure in the cervical and thoracic spine. Orthopedic surgery recommending surgery while inpatient. Subjective Patient states that she still has neck pain. She states that when she moves it exacerbates her pain. 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 Psych - Calm and cooperative Assessment and plan Neck pain Hardware failure status post thoracic fracture and stabilization Pain control with IV Dilaudid 1 mg every 3 hours as needed Patient is cleared for orthopedic surgery with acceptable risk Patient is scheduled for surgery on 03/20/2024 Leukopenia Patient will need to follow-up with hematology outpatient Hypothyroidism Continue levothyroxine Hypertension Blood pressure acceptable Continue with amlodipine Depression Stable Continue Lexapro DVT prophylaxis: Subcu heparin Anticipated place of discharge: Home Anticipated discharge: Pending clinical course Objective - Vital Signs Vital signs: Vital Signs Temp 97.8 F 03/15/24 07:00 Pulse 68 03/15/24 07:00 Resp 17 03/15/24 07:00 BP 118/78 03/15/24 07:00 Pulse Ox 98 03/15/24 07:00 FiO2 Intake & Output 03/14/24 03/15/24 03/15/24 18:59 06:59 18:59 Intake Total 1298 118 Balance 1298 118 Weight 68.039 kg Intake: Oral 1298 118 Other: Voiding Method Toilet Toilet # Voids 3 2 - Labs CBC & Chem 7: 03/15/24 07:20 03/15/24 07:20 Labs: Abnormal Lab Results - Last 24 Hours (Table) 03/15/24 03/15/24 Range/Units 07:20 07:20 WBC 2.4 L (3.8-10.6) k/uL Hgb 10.3 L (11.4-16.0) gm/dL Hct 32.1 L (34.0-46.0) % Plt Count 107 L (150-450) k/uL Neutrophils # 1.1 L (1.3-7.7) k/uL Lymphocytes # 0.9 L (1.0-4.8) k/uL Chloride 108 H (98-107) mmol/L
--- NOTE | 2024-03-16 11:37 | P.PN ---
Subjective Progress Note Date: 03/16/24 Principal diagnosis: Cervicalgia, thoracic back pain, hardware failure status post C5-T5 stabilization for T5-T6 fracture Patient was seen at bedside this morning lying in the semirecumbent position. Patient does not have any new complaints at this time. Patient says she is sti ll having neck pain at this time. Patient is looking forward to surgery next week. Patient denies any Ortho orthopedic complaints. Objective - Vital Signs Vital signs: Vital Signs Temp 98.4 F 03/16/24 07:00 Pulse 70 03/16/24 07:00 Resp 15 03/16/24 07:00 BP 103/69 03/16/24 07:00 Pulse Ox 96 03/16/24 07:00 FiO2 Intake & Output 03/15/24 03/16/24 03/16/24 18:59 06:59 18:59 Intake Total 236 236 Balance 236 236 Intake: Oral 236 236 Other: Voiding Method Toilet Toilet # Voids 1 1 1 - Exam Incision is present on this cervical thoracic spine with some fascial splaying. Sensation is equal, symmetric, by intact throughout the upper and lower extremities. There is tenderness to patient throughout the cervical and thoracic spine at midline near incision. Nontender to palpation throughout rest of exam. Patient has good range of motion throughout bilateral upper and lower extremities on exam. 3+/5 in resisted left hip flexion extension. 4/5 in all major motor groups in right lower extremity. 4-/5 in bilateral shoulders and with resisted shoulder abduction, forward elevation and external/internal rotation. 4/5 in all other major motor groups in bilateral upper extremities. Radial pulse intact, 2+ bilaterally. Cap refill under 3 seconds in digits of upper extremities. Negative Homans on the right lower extremity. Negative clonus on the right lower extremity. Positive Fauzia on the right upper extremity. Negative Fauzia on the left upper extremity. - Labs CBC & Chem 7: 03/15/24 07:20 03/15/24 07:20 Assessment and Plan Assessment: 1. Cervicalgia, thoracic back pain, hardware failure status post C5-T5 stabilization for T5-T6 fracture Plan: 1. Cervicalgia, thoracic back pain, hardware failure status post C5-T5 stabilization for T5-T6 fracture -planning for surgery on 04-11. Patient to be medically optimized. Medicine following. PT/OT recommendations. Use ARLENE hose and SCDs. Pain medication as needed. We will continue to follow the patient during her stay in hospital. Time with Patient: Less than 30
--- NOTE | 2024-03-16 12:51 | P.PN ---
Subjective Progress Note Date: 03/16/24 Hospital course 43-year-old female with GERD bipolar disorder. Patient coming in for refractory neck pain radiating to the left upper extremity with some numbness this is chronic in nature however got worse over the past few days she has been following up with Ortho as an outpatient with plans for surgery however due to the nature of the pain and severity she decided to come in today for reevaluation she had multiple visits to the ED over the past couple days for the same problem of severe worsening neck pain. Patient seen by orthopedic surgery who said patient has hardware failure in the cervical and thoracic spine. Orthopedic surgery recommending surgery while inpatient. Subjective Patient seen this morning. She is denying any acute complaints. 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 Hypothyroidism Continue levothyroxine Hypertension Blood pressure acceptable Continue with amlodipine Depression Stable Continue Lexapro DVT prophylaxis: Subcu heparin Anticipated place of discharge: Home Anticipated discharge: Pending clinical course Objective - Vital Signs Vital signs: Vital Signs Temp 98.4 F 03/16/24 07:00 Pulse 70 03/16/24 07:00 Resp 15 03/16/24 07:00 BP 103/69 03/16/24 07:00 Pulse Ox 96 03/16/24 07:00 FiO2 Intake & Output 03/15/24 03/16/24 03/16/24 18:59 06:59 18:59 Intake Total 236 236 Balance 236 236 Intake: Oral 236 236 Other: Voiding Method Toilet Toilet # Voids 1 1 1 - Labs CBC & Chem 7: 03/15/24 07:20 03/15/24 07:20
--- NOTE | 2024-03-17 11:17 | P.PN ---
Subjective Progress Note Date: 03/17/24 Principal diagnosis: Cervicalgia, thoracic back pain, hardware failure status post C5-T5 stabilization for T5-T6 fracture Patient evaluated today at bedside, she is resting comfortably in her hospital bed. Pain is controlled with current regimen. She is anticipating her upcoming surgery next week. Denies headaches, lightheadedness, chest pain or shortness of breath. Objective - Vital Signs Vital signs: Vital Signs Temp 97.9 F 03/17/24 07:00 Pulse 75 03/17/24 07:00 Resp 12 03/17/24 07:00 BP 113/74 03/17/24 07:00 Pulse Ox 98 03/17/24 07:00 FiO2 Intake & Output 03/16/24 03/17/24 03/17/24 18:59 06:59 18:59 Intake Total 354 118 Balance 354 118 Intake: Oral 354 118 Other: Voiding Method Toilet Toilet Toilet # Voids 2 1 - Exam Gen: AOx3, NAD VSS stable at this time Integument: Previous surgical incision is noted in the cervical/thoracic spine. There is fascial splaying noted to the skin. There are no open lesions visualized. Palpation: Patient demonstrates tenderness with palpation throughout the cervical and thoracic spine also across the shoulder blades ROM: Full range of motion in all major muscle groups of the bilateral upper extremities no focal deficits appreciated Full range of motion noted in the right lower extremity, no focal deficits, range of motion adequate with hip flexion to the left lower extremity Sensory Exam: Senory exam to light touch is intact C5-T1 Senosry exam to light touch is intact L2-S1 Motor: 4-/4 strength appreciated the bilateral upper extremities with shoulder abduction, shoulder elevation, 4/4 strength bilaterally with elbow extension, elbow flexion, wrist extension, wrist flexion, cognos 3/4 strength appreciated in the left lower extremity with hip flexion 4-/4 strength appreciated in the right lower extremity with hip flexion, knee flexion, 4/4 strength appreciated in the right lower extremity with knee extension, plantarflexion, dorsiflexion, EHL, FHL Reflexes: 2/4 in all UE and LE Negative Fauzia's left upper extremity, positive right upper extremity Negative Babinski bilaterally Negative clonus right lower extremity Special Test: Logroll maneuver reproduces no pain to the right lower extremity, negative straight leg raise of the right lower extremity - Labs CBC & Chem 7: 03/15/24 07:20 03/15/24 07:20 Assessment and Plan Assessment: Cervicalgia Thoracic back pain Bilateral upper extremity weakness Hardware failure status post T5-T6 fracture and stabilization C5-T5 Plan: Plan: Planning for surgery as of 03/20/2024 Medical clearance to be obtained for surgical intervention Pain control, continue with current medications DVT prophylaxis, recommend ARLENE hose/ SCDs due to likely upcoming surgery Will continue to follow during hospital stay Time with Patient: Less than 30
--- NOTE | 2024-03-17 11:47 | P.PN ---
Subjective Progress Note Date: 03/17/24 Hospital course 43-year-old female with GERD bipolar disorder. Patient coming in for refractory neck pain radiating to the left upper extremity with some numbness this is chronic in nature however got worse over the past few days she has been following up with Ortho as an outpatient with plans for surgery however due to the nature of the pain and severity she decided to come in today for reevaluation she had multiple visits to the ED over the past couple days for the same problem of severe worsening neck pain. Patient seen by orthopedic surgery who said patient has hardware failure in the cervical and thoracic spine. Orthopedic surgery recommending surgery while inpatient. Subjective Patient this morning was complaining of her IV line. She states that the nurse is planning on putting a new IV line in. Patient states that she has small vess els that are also deep. She states that she has been dealing with this her whole life. 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 Hypothyroidism Continue levothyroxine Hypertension Blood pressure acceptable Continue with amlodipine Depression Stable Continue Lexapro DVT prophylaxis: Subcu heparin Anticipated place of discharge: Home Anticipated discharge: Pending clinical course Objective - Vital Signs Vital signs: Vital Signs Temp 97.9 F 03/17/24 07:00 Pulse 75 03/17/24 07:00 Resp 12 03/17/24 07:00 BP 113/74 03/17/24 07:00 Pulse Ox 98 03/17/24 07:00 FiO2 Intake & Output 03/16/24 03/17/24 03/17/24 18:59 06:59 18:59 Intake Total 354 118 Balance 354 118 Intake: Oral 354 118 Other: Voiding Method Toilet Toilet Toilet # Voids 2 1 - Labs CBC & Chem 7: 03/15/24 07:20 03/15/24 07:20
--- NOTE | 2024-03-18 11:04 | P.PN ---
Subjective Progress Note Date: 03/18/24 Principal diagnosis: Cervicalgia, thoracic back pain, hardware failure status post C5-T5 stabilization for T5-T6 fracture Patient evaluated today at bedside, she is resting comfortably in her hospital bed. Pain is controlled with current regimen. She is anticipating her upcoming surgery next week. Denies headaches, lightheadedness, chest pain or shortness of breath. Objective - Vital Signs Vital signs: Vital Signs Temp 98.0 F 03/18/24 07:00 Pulse 86 03/18/24 07:00 Resp 17 03/18/24 07:00 BP 122/83 03/18/24 07:00 Pulse Ox 96 03/18/24 07:00 FiO2 Intake & Output 03/17/24 03/18/24 03/18/24 18:59 06:59 18:59 Intake Total 236 236 Balance 236 236 Intake: Oral 236 236 Other: Voiding Method Toilet Toilet # Voids 2 - Exam Gen: AOx3, NAD VSS stable at this time Integument: Previous surgical incision is noted in the cervical/thoracic spine. There is fascial splaying noted to the skin. There are no open lesions visualized. Palpation: Patient demonstrates tenderness with palpation throughout the cervical and thoracic spine also across the shoulder blades ROM: Full range of motion in all major muscle groups of the bilateral upper extremities no focal deficits appreciated Full range of motion noted in the right lower extremity, no focal deficits, range of motion adequate with hip flexion to the left lower extremity Sensory Exam: Senory exam to light touch is intact C5-T1 Senosry exam to light touch is intact L2-S1 Motor: 4-/4 strength appreciated the bilateral upper extremities with shoulder abduction, shoulder elevation, 4/4 strength bilaterally with elbow extension, elbow flexion, wrist extension, wrist flexion, 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 practitioner 3/4 strength appreciated in the left lower extremity with hip flexion 4-/4 strength appreciated in the right lower extremity with hip flexion, knee flexion, 4/4 strength appreciated in the right lower extremity with knee extension, plantarflexion, dorsiflexion, EHL, FHL Reflexes: 2/4 in all UE and LE Negative Fauzia's left upper extremity, positive right upper extremity Negative Babinski bilaterally Negative clonus right lower extremity Special Test: Logroll maneuver reproduces no pain to the right lower extremity, negative straight leg raise of the right lower extremity - Labs CBC & Chem 7: 03/15/24 07:20 03/15/24 07:20 Assessment and Plan Assessment: Cervicalgia Thoracic back pain Bilateral upper extremity weakness Hardware failure status post T5-T6 fracture and stabilization C5-T5 Plan: Plan: Planning for surgery as of 03/20/2024 Medical clearance to be obtained for surgical intervention Pain control, continue with current medications DVT prophylaxis, recommend ARLENE hose/ SCDs due to likely upcoming surgery Will continue to follow during hospital stay Time with Patient: Less than 30
--- NOTE | 2024-03-18 11:45 | P.PN ---
Subjective Progress Note Date: 03/18/24 Hospital course 43-year-old female with GERD bipolar disorder. Patient coming in for refractory neck pain radiating to the left upper extremity with some numbness this is chronic in nature however got worse over the past few days she has been following up with Ortho as an outpatient with plans for surgery however due to the nature of the pain and severity she decided to come in today for reevaluation she had multiple visits to the ED over the past couple days for the same problem of severe worsening neck pain. Patient seen by orthopedic surgery who said patient has hardware failure in the cervical and thoracic spine. Orthopedic surgery recommending surgery while inpatient. Subjective Patient seen this morning. She had no acute complaints. No other acute issues overnight. 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 Hypothyroidism Continue levothyroxine Hypertension Blood pressure acceptable Continue with amlodipine Depression Stable Continue Lexapro DVT prophylaxis: Subcu heparin Anticipated place of discharge: Home Anticipated discharge: Pending clinical course Objective - Vital Signs Vital signs: Vital Signs Temp 98.0 F 03/18/24 07:00 Pulse 86 03/18/24 07:00 Resp 17 03/18/24 07:00 BP 122/83 03/18/24 07:00 Pulse Ox 96 03/18/24 07:00 FiO2 Intake & Output 03/17/24 03/18/24 03/18/24 18:59 06:59 18:59 Intake Total 236 236 Balance 236 236 Intake: Oral 236 236 Other: Voiding Method Toilet Toilet # Voids 2 - Labs CBC & Chem 7: 03/15/24 07:20 03/15/24 07:20
--- NOTE | 2024-03-19 14:51 | P.PN ---
Subjective Progress Note Date: 03/19/24 Principal diagnosis: Cervicalgia, thoracic back pain, hardware failure status post C5-T5 stabilization for T5-T6 fracture Patient evaluated today at bedside, she is resting comfortably in her hospital bed. Pain is controlled with current regimen. She is anticipating her upcoming surgery next week. Denies headaches, lightheadedness, chest pain or shortness of breath. Objective - Vital Signs Vital signs: Vital Signs Temp 97.8 F 03/19/24 07:00 Pulse 74 03/19/24 07:00 Resp 18 03/19/24 07:00 BP 110/74 03/19/24 07:00 Pulse Ox 98 03/19/24 07:00 FiO2 Intake & Output 03/18/24 03/19/24 03/19/24 18:59 06:59 18:59 Intake Total 354 474 Balance 354 474 Intake: Oral 354 474 Other: # Voids 4 1 - Exam Gen: AOx3, NAD VSS stable at this time Integument: Previous surgical incision is noted in the cervical/thoracic spine. There is fascial splaying noted to the skin. There are no open lesions visualized. Palpation: Patient demonstrates tenderness with palpation throughout the cervical and thoracic spine also across the shoulder blades ROM: Full range of motion in all major muscle groups of the bilateral upper extremities no focal deficits appreciated Full range of motion noted in the right lower extremity, no focal deficits, range of motion adequate with hip flexion to the left lower extremity Sensory Exam: Senory exam to light touch is intact C5-T1 Senosry exam to light touch is intact L2-S1 Motor: 4-/4 strength appreciated the bilateral upper extremities with shoulder abduction, shoulder elevation, 4/4 strength bilaterally with elbow extension, elbow flexion, wrist extension, wrist flexion, 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 lower extremity with hip flexion 4-/4 strength appreciated in the right lower extremity with hip flexion, knee flexion, 4/4 strength appreciated in the right lower extremity with knee extension, plantarflexion, dorsiflexion, EHL, FHL Reflexes: 2/4 in all UE and LE Negative Fauzia's left upper extremity, positive right upper extremity Negative Babinski bilaterally Negative clonus right lower extremity Special Test: Logroll maneuver reproduces no pain to the right lower extremity, negative straight leg raise of the right lower extremity - Labs CBC & Chem 7: 03/15/24 07:20 06/27/24 07:20 Assessment and Plan Assessment: Cervicalgia Thoracic back pain Bilateral upper extremity weakness Hardware failure status post T5-T6 fracture and stabilization C5-T5 Plan: Plan: Planning for surgery as of 03/20/2024 N.p.o. after midnight Medical clearance to be obtained for surgical intervention Pain control, continue with current medications DVT prophylaxis, recommend ARLENE hose/ SCDs due to likely upcoming surgery Further recommendations to follow after surgery Time with Patient: Less than 30
--- NOTE | 2024-03-19 16:54 | P.PN ---
Subjective Progress Note Date: 03/19/24 Subjective Patient seen and examined at bedside. No acute events overnight. Patient states the pain is chronic in nature but says it has gotten worse over time. Patient was seen by Ortho and was recommended to have surgery due to hardware failure of the cervical and thoracic spine. Patient is scheduled for surgery tomorrow. Pertinent positives and negatives as discussed above, a complete review of systems was performed and all other systems are negative. Vitals: Signs Reviewed Physical Exam: General: nontoxic, no distress, appears stated age Head: atruamatic, normocephalic, symmetric Eyes: EOMI, no lid lag, anicteric sclera Cardiovascular:RRR, no murmurs or gallops appreciated Lungs: clear on auscultation bilaterally Abdominal: nontender, non-distended, no rigidity soft Extremities: no edema Neuro: no cranial nerve deficits noted Psych: Alert, oriented, appropiate affect Data Received Today: Pertinent Labs: No new labs today Imaging: Prior x-ray: no acute fracture on cervical spine Assessment and Plan: Patient is a 43-year-old female with a past medical history of prior T5-T6 f racture, status post C5-T5 stabilization, GERD, bipolar disorder that presents with neck pain that radiates to the left upper extremity with numbness. Pending surgery for hardware failure tomorrow. Active: Cervicalgia History of heart failure failure status post T5-T6 fracture and stabilization no C5-T5 Discussed management with orthopedics, surgery tomorrow, n.p.o. at midnight Per NSQIP, patient has 8.6% risk of any complication, and serious complication, below average risk for any cardiac complications Continue Dilaudid for pain management IV as needed, monitor for sedation Also on oral morphine extended release 15 p.o. every 12 hours Also on gabapentin 200 mg 3 times daily Patient is medically optimized for surgery tomorrow Add senna BID History of moderate to severe WILFRIDO Pulmonology consulted, patient likely to be in the medical ICU postop essential hypertension Continue amlodipine 5 mg nightly Hypothyroidism (unspecified) Continue levothyroxine 50 mcg daily GERD Continue on pantoprazole 40 mg daily Bipolar disorder Continue Seroquel 300 nightly F: KVO E: n/a N: NPO after midnight A: fall precautions DVT ppx: SCDs Code status: FULL code Anticipated discharge place: pending clinical course ANticipated discharge time: pending clinical course I have seen and evaluated the patient today. Discussed with the resident and agree with the residents finding and plan as documented in the resident's note. Changes highlighted in blue font. Objective - Vital Signs Vital signs: Vital Signs Temp 98.5 F 03/19/24 14:49 Pulse 86 03/19/24 14:49 Resp 18 03/19/24 14:49 BP 115/71 03/19/24 14:49 Pulse Ox 98 03/19/24 14:49 FiO2 Intake & Output 03/18/24 03/19/24 03/19/24 18:59 06:59 18:59 Intake Total 354 474 Balance 354 474 Intake: Oral 354 474 Other: # Voids 4 1 - Labs CBC & Chem 7: 03/15/24 07:20 03/15/24 07:20
[2024-03-19] MEDS: SENNOSIDES 8.6 MG TAB PO SCH (21:19)
--- NOTE | 2024-03-20 06:16 | P.PN ---
Progress Note - Text Progress Note Date: 03/20/24 Spine Surgery Clinical and Risk Review Shaista Johnson is a [Demographic] presenting for evaluation of [chief complaint]. It was my pleasure to have seen and examined Shaista Johnson. In our visit today we have had a chance to go over subjective complaints, physical examination findings and treatments including the natural course history without intervention and various interventional options. 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 There is non healing of the fracture as well noted with some posterior healing due to fusion. There are several areas of screw migration not only medially but also laterally which are not safe at this time. There is stenosis at the site of the fracture T5-7 which is moderate to severe due to kyphosis, cord draping as well as bony fragmentation. On physical exam, Shaista Johnson demonstrates severe upper back, CT junction and mid back pain as well as neck pain, debility due to continued pain. Prominent hardware with impending breakthrough of the skin due to fascial splaying of the CT junction due to hardware failure as well as facial failure. Kyphotic deformity. TTP of the CT junction as well as mid thoracic region. Palpable hardware. 3 to 4-/5 UE and LE b/l due to pain as well as debility and possibly chronic after fracture except for her LE which is amputated where testing could not be done. UE and LE paresthesias, A/C. No caudal sx. Myelopathy with ^DTR 3/4 UEb/l and 2/4 LE those testable. Overall increased weakness since exam in office due to debility, pain and sedentary state related to her current condition. I have explained to the patient that as their condition progresses it will cause further neurological deficits and eventual paralysis. Based on the patients imaging, physical exam, and the rapid progression and disabling nature of their symptoms, at this time I recommend surgery in the form or a: REVISION C5-T8 DECOMPRESSION AND FUSION. I discussed the risk and benefits of this procedure at length with Shaista Johnson. The patient AND FAMILY agreed to considered pursuing the procedure abovementioned. Prior to surgery, she should follow up with her PCP (Cardio, ID, IM etc) for clearance. Questions were invited and answered, and the patient wishes to proceed as outlined below. Currently, I am recommendin. REVISION C5-T8 DECOMPRESSION FUSION 2. Follow up with PCP for surgical clearance 3. Review of surgical risks and benefits as well as an educational packet on the proposed surgical procedure. Risks: All surgical procedures come with inherent risks, including those related to positioning, anesthesia, intraoperative findings, and postoperative complications. It is important to understand that surgery does not come with any guarantee of a successful outcome as complications and adverse events are al ways possible. The patient was given a handout in office today discussing the surgical procedure and risks associated with the intervention, both of which were discussed with the patient. These risks include but are not limited to the following: * Experiencing same, different or even worse symptoms in back, neck, arms, or legs compared to before surgery. * Requiring further surgery or other forms of treatment presently or at some time in the future at same or other levels of the intended spine surgery. * On an extreme but fortunately relatively rare basis severe complication such as blindness, stroke, heart attack, temporary and/or permanent nerve injury, paralysis, coma, or may occur, sometimes without known explanation. * Surgical complications may include but are not limited to risk of infection, fluid accumulation in the surgical dissection site, including a seroma or hematoma, that requires additional surgery, wound drainage, bleeding, new numbness or weakness, vision changes/loss, spinal fluid leakage, non-healing and/or infected incision, headaches, difficulty or inability to swallow, hoarseness, hemopneumothorax, pneumothorax, impotence, retrograde ejaculation, vaginal dryness; injury to nerves, spinal cord, blood vessels, lymphatics or other vital organs (i.e., bowel injury, injury to the great vessels); heterotopic bone formation; complications related to the hardware such as screws, rods, cages including misplaced hardware, device failure, instrumentation at the wrong spine level, hardware fracture/breakage, or hardware loosening; vertebral failure of the spinal column above or below the newly placed hardware; retained surgical instrumentations or devices and the need for further surgery. * Medical risks of the planned spine surgery include but are not limited to generalized Infections to the whole body or local areas outside of the surgical site (sepsis), heart attack, bleeding, anaphylaxis, meningitis, seizure, epilepsy, hearing loss, burn ventura, laceration of the head or other areas of the body, bruising, hypersensitivity of the skin, bladder over distension; allergic reaction; shoulder injury related to positioning; fat, blood and air clots to other areas of the body like heart, lungs, brain; failure of internal organs such as lungs, kidneys, liver and excessive bleeding. If blood transfusions are necessary, note that transfusions may cause intolerance reactions such as anaphylaxis or other complex reactions. * Despite best efforts, the results of spine surgery might not heal in terms of bone, soft tissues such as skin, fascia, ligaments, and joints. Additionally, in order to achieve best possible results, spine surgery may be carried out beyond the initially planned levels and involve decompression, fusion including insertion of hardware at levels other than the original intended area of surgical interest change some portions of the procedure in order to ensure the best possible outcomes. * With spine surgery and spinal fusion, there are different off label uses of instrumentation (devices, implants and hardware) as well as biological substances (bone morphogenic proteins, demineralized bone matrix) as well as using extra bone from allograft sources (i.e. cadaver bone) or autograft (iliac crest bone, ribs, or the spine itself). The patient has been given information about these practices and their inherent risks and benefits. The patient has had a chance to review all the listed information, has been given print outs detailing this information, and has had all his/her questions answered to their satisfaction. It was my pleasure to have seen and examined Shaista Johnson. In our visit today we have had a chance to go over my understanding of our patient's current condition, the natural course history without intervention and various interventional options. Questions were invited and answered, and the patient wishes to proceed as outlined above. I have seen and examined the patient for 25 minutes and we have spent more than 50% of the time in repeat and detailed counseling about the patient's condition, its natural course history with out and as much as can be predicted with surgery and re-review of various surgical treatment options. In conclusion, Shaista Johnson and family requested we proceed with the above suggested surgery and are willing to accept risks and limitations of the suggested surgery as nature of the disease process and our best attempts at treatment for the condition. Thank you again for allowing us to be part of your patient's care. Please don't hesitate to contact me if you have any further questions. Signed and authenticated by: [facility] [address] [place] [id number]
[2024-03-20] MEDS ORDERED: VANCOMYCIN IV PER PHARMACY 1 EACH MISC MISCELLANE PRN (07:26)
[2024-03-20] MEDS: VANCOMYCIN 1,250 MG in SODIUM CHLORIDE 0.9% 250 ML IVPB ONE (07:55)
[2024-03-20] MEDS: MIDAZOLAM 2 MG/2 ML VIAL IV ONE (08:04)
[2024-03-20] MEDS: IV FLUID CONTINUATION 1,000 ML IV ONE ×2 (08:14→08:18)
--- NOTE | 2024-03-20 08:15 | P.ANPRN ---
Procedure Note - Anesthesia - Invasive Line Right Arterial Line Date of Procedure: 03/20/24 Time of Procedure: 08:00 Location of Patient: PreOp Preparation: Sterile Prep, Sterile Dressing Arterial Line Location: Radial Ultrasound Used: Yes Purpose - Visualization and Identification of Vasculature: Yes Image Stored and Saved: Yes Narrative: Invasive line placement per sterile protocol utilized. AttemptX1.
[2024-03-20] MEDS: LACTATED RINGERS 1,000 ML BAG IV STA (08:18)
[2024-03-20] MEDS ORDERED: MIDAZOLAM 2 MG/2 ML VIAL ONE (08:25)
[2024-03-20] MEDS ORDERED: PHENYLEPHRINE 10 MG/ML VIAL ONE (08:25)
[2024-03-20] MEDS ORDERED: KETAMINE HCL IN 0.9 % NACL 50 MG/5 ML SYRINGE ONE (08:25)
[2024-03-20] MEDS ORDERED: TRANEXAMIC 1,000 MG/100ML-NACL PREMIX BAG ONE (08:25)
[2024-03-20] MEDS ORDERED: PROPOFOL 10 MG/ML 20 ML VIAL IV ONE (08:25)
[2024-03-20] MEDS: SODIUM CHLORIDE 0.9% 1,000 ML IV ONE (08:25)
[2024-03-20] MEDS ORDERED: SUCCINYLCHOLINE CHLORIDE 200 MG/10 ML VIAL IV ONE (08:25)
[2024-03-20] MEDS ORDERED: SUGAMMADEX SODIUM 200 MG/2 ML SDV IV ONE (08:25)
[2024-03-20] MEDS ORDERED: fentaNYL (PF) 50 MCG/ML 2 ML AMP ONE (08:25)
[2024-03-20] MEDS ORDERED: ROCURONIUM 10 MG/ML (5 ML VIAL) IV ONE (08:25)
[2024-03-20 08:48] VITALS: BMI 25.0
[2024-03-20] MEDS: ceFAZolin 3,000 MG in SODIUM CHLORIDE 0.9% IRRIGATIO 3,000 ML IRRIGATION ONE (09:26)
[2024-03-20] MEDS: THROMBIN (BOVINE) 5,000 UNIT VIAL TOPICAL ONE (09:26)
[2024-03-20] MEDS: GENTAMICIN 80 MG in SODIUM CHLORIDE 0.9% IRRIGATIO 3,000 ML IRRIGATION ONE (09:26)
[2024-03-20] MEDS: LACTATED RINGERS 1,000 ML IV ONE (10:31)
--- NOTE | 2024-03-20 10:36 | P.ANPRN ---
Procedure Note - Anesthesia - Invasive Line Left Central Line Time Out Performed: Yes Date of Procedure: 03/20/24 Time of Procedure: 07:49 Location of Patient: PreOp Preparation: Sterile Prep, Sterile Dressing Central Line Location: Femoral Ultrasound Used: No Purpose - Visualization and Identification of Vasculature: No Image Stored and Saved: No Narrative: Invasive line placement per sterile protocol utilized.
[2024-03-20] MEDS: VANCOMYCIN 1,000 MG VIAL MISCELLANE ONE (13:32)
--- NOTE | 2024-03-20 14:26 | XR ---
EXAMINATION TYPE: XR thoracic spine 2V, FL guidance operating room DATE OF EXAM: 03/20/2024 COMPARISON: NONE HISTORY: 43-year-old female C5-T8 fusion FINDINGS: Intraoperative fluoroscopy. 35 sec fl dap 1464.19 Gycm2. c5-t8 fusion No images provided. IMPRESSION: Intraoperative fluoroscopy as above.
--- NOTE | 2024-03-20 14:50 | P.OP ---
Date of Procedure: 03/20/24 Preoperative Diagnosis: Current Active Problems Closed T3 fracture (Acute) Hardware failure (Acute) C7 cervical fracture (Acute) Fusion of spine of cervicothoracic region (Acute) Neck pain (Acute) Paresthesia of lower extremity (Acute) Postoperative Diagnosis: Current Active Problems Closed T3 fracture (Acute) Hardware failure (Acute) C7 cervical fracture (Acute) Fusion of spine of cervicothoracic region (Acute) Neck pain (Acute) Paresthesia of lower extremity (Acute) Procedure(s) Performed: OPEN TREATMENT OF T3 AND C7 FRACTURES REVISION INSTRUMENTED POSTEROLATERAL FUSION C2-T8 SEGMENTAL INSTRUMENTATION C2-T8 REMOVAL OF FAILED HARDWARE C7-T5 COMPLEX 4 LAYERED CLOSURE OF CERVICOTHORACIC SPINE WITH SCAR REVISION [id number] USE OF via680 NAVIGATION FOR SCREW PLACEMENT Implants: -ROBEL SASKATCHEWAN AND EVEREST POSTERIOR CERVICOTHORACIC SYSTEM -ALLOGRAFT, AUTOGRAFT, DBM Anesthesia: GETA Surgeon: Hayden Tan (MANNY Farah was present and assisted with entire case.) Estimated Blood Loss (ml): 350 IV fluids (ml): 3,500 Urine output (ml): 400 Pathology: none sent Condition: stable Disposition: PACU Indications for Procedure: Shaista Johnson is a 43 yo female presenting for evaluation of severe neck and back pain, failed hardware, prominent hardware, fascial splaying. . It was my pleasure to have seen and examined Shaista Johnson. In our visit today we have had a chance to go over subjective complaints, physical examination findings and treatments including the natural course history without intervention and various interventional options. 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 There is non healing of the fracture as well noted with some posterior healing due to fusion. There are several areas of screw migration not only medially but also laterally which are not safe at this time. There is stenosis at the site of the fracture T5-7 which is moderate to severe due to kyphosis, cord draping as well as bony fragmentation. On physical exam, Shaista Johnson demonstrates severe upper back, CT junction and mid back pain as well as neck pain, debility due to continued pain. Prominent hardware with impending breakthrough of the skin due to fascial splaying of the CT junction due to hardware failure as well as facial failure. Kyphotic deformity. TTP of the CT junction as well as mid thoracic region. Palpable hardware. 3 to 4-/5 UE and LE b/l due to pain as well as debility and possibly chronic after fracture except for her LE which is amputated where testing could not be done. UE and LE paresthesias, A/C. No caudal sx. Myelopathy with ^DTR 3/4 UEb/l and 2/4 LE those testable. Overall increased weakness since exam in office due to debility, pain and sedentary state related to her current condition. I have explained to the patient that as their condition progresses it will cause further neurological deficits and eventual paralysis. Based on the patients imaging, physical exam, and the rapid progression and disabling nature of their symptoms, at this time I recommend surgery in the form or a: REVISION C5-T8 D ECOMPRESSION AND FUSION. I discussed the risk and benefits of this procedure at length with Shaista Johnson. The patient AND FAMILY agreed to considered pursuing the procedure abovementioned. Prior to surgery, she should follow up with her PCP (Cardio, ID, IM etc) for clearance. Questions were invited and answered, and the patient wishes to proceed as outlined below. We discussed the possibility of needing to go higher and lower based on purchase of screws and the need for more stability due to the fact that her previous screw tracts are poor and her pedicles are very small. She agreed to this possiblity of C2-T8 or 9 if needed. Currently, I am recommendin. REVISION C5-T8 DECOMPRESSION FUSION Description of Procedure: C2-T9 open treatment fracture, pseudoarthrosis and stabilization The patient was seen and examined in the preoperative area. All preoperative protocols were followed. Informed consent was obtained, risks and benefits of the procedure were discussed at length. Risks including bleeding infection damage to the surrounding tissue and risk of reoperation were discussed with the patient. Risk of anesthesia up to and including was discussed with the patient. These are outlined in the risk review. They were willing to accept these risks and all of the risks of surgery. The patient was given a weight- based dose of antibiotics in the form of 2 g Ancef. The patient was seen and evaluated by the anesthesia team who deemed them fit for surgery. The site was marked, the patient was willing to proceed with the procedure. The patient was transferred to the operative suite by the Department of anesthesia. They were then drifted off to sleep by the department anesthesia and GETA was performed. The patient tolerated this well. pre-positioning motors were obtained.Rendon in place from the floor. Once confirmation of lines and ventilation Norman head clamp was placed on the patient and secured and the patient was transferred to a [prone Nelson table very carefully] with the Norman early head start teacher the head was secured and placed into an optimal position x- ray confirmed this position. Post-positioning motors remained stable. All bony prominences including wrists, elbows, axilla, chest, hips, and thighs, and feet were padded very well. Special attention was paid to the genitalia and these were padded accordingly. SCDs were placed on bilateral lower extremities and were connected. Arms were well padded and placed tucked at his side thumbs down. Shoulders were gently taped down to the table.. Once in position, again we confirmed good ventilation capabilities and that lines were running appropriately. The patient's posterior cervical spine was then exposed. 1010s were placed outlining the incision site. Standard alcohol was used to clean the incision site and allowed to dry. C-arm was used to biomark the patient and confirm level for incision which was marked with a skin marker. Operative briefing was performed with all teams and everyone in agreement to proceed. The patient was then prepped and draped in a normal sterile fashion. Timeout was then performed and all parties were in agreement with the procedure to be performed. Midline skin incision made over the previously bio-marked area and dissection taken down midline to the SP of C2-T9. The previous scar, which was splayed and thin was revised and removed using an ellipical incision. Due to the hardware failure, this was encountered very superficial and was coming through the thoracodorsal fascia which was also very thin. We exposed the hardware from C7- T5 noting that the C7 screws had catestrophically failed and pulled completely out and were sitting in the paraspinal musculature causing alot of scarring. We then exposed up to C2 region for excursion purposes and down to T9 subperiosteally over the lateral masses and TVP to allow for good fascial closure after. Subperiosteal dissection taken out over the lamina and lateral masses of C2-C7 and TVP of T1 and T2. Once exposure complete, the wound was irrigated. Hardware was then removed from C7-T5 noting that all screws except for the left T4 were loose and pulled out without much effort. Their tracts were palpated with a ball tip and noted to all be lateral. We then proceeded to attempt hardware placement cranially at C5, however the lateral masses were very poor bone quality and it was elected at this point to gain good purchase up at C2. C2 was exposed and A penfield 4 was used to bluntly dissect the medial border of C2 pedicle and placed for guidance. C arm used and a danilo hole made for the starting point. The C2 pedicle was then drilled in 2 mm increments to 16 mm using a ball tip feeler in between each drill session to make sure within the 4 clemons with a good bottom. Once this was accomplished a screw was selected and placed under lateral fluoroscopic guidance. Screw had a good purchase. This was then repeated on the contralateral side. AP confirmed good placement of both screws. We then proceeded to the T1 and T2 screws bilaterally. A high speed danilo was used to remove the facet joint of C7 and to create a new starting point for T1 and similarly, T1 facet for T2. Pedicle finder was then passed into T1 and T2 and imaging taken to confirm placement this was then removed and a tap placed ball-tipped probe was then placed and 4 clemons of pedicle fell with good bottom. Screw was then measured and placed into T1 and T2. This is repeated on the contralateral side. Imaging confirmed good placement of all 4 thoracic screws. We then placed a SP clamp on T8 and obtained a 3D Zhiem spin of the remaining structure down to T9. Once this was done and confirmed to be accurate, screws were proceeded to be placed and replaced at T3-9 bilaterally. We were able to obtain new tracts and good purchase of almost all screws except for the right side T3 which was left out due to no pedicular purchase or even bone. Screws were placed using a highspeed danilo, navigated awl tap and navigated screwdriver with a measured screw placed optimally. Once screws were placed, we spun again with Zhiem to check screw placement. All screws were safely placed. IONM stayed stable during this time. We then performed type I osteotomies of the facet joints from T1-T8/9 for the deformity correction and due to the pseudo arthrosis, these levels were still very unstable and mobile. The wound was irriaged and maticulous hemostasis done. Lateral mass screws were then drilled to 12 mm and placed at each level from C3-6. We were only able to gain good purchase in C4-6 on both sides due to poor bone quality. Each had a good bite. We then proceeded to natalia selection and placement. Rods were selected, cut and bent appropriately. These were then secured into C2 bilaterally and then sequentially reduced into lateral mass screws and T1 and T2 screws then down to T9. All set screws were placed and were then final tightened and the position. Motors were run before and after decompression and they remain stable. Good pulsations of the cord were noted after decompression. Foraminotomies then performed with kerrison rongeur and clean up of the laminectomy site. The wound was then copiously irrigated with 3 L of Ancef irrigation followed by 3 L of gentamicin irrigation followed by 2L Irricept, 1L betadine and 3 L of normal sterile saline. Facet joints were drilled at each level to allow for fusion Surgicel was placed over the dura. MagnetOs were placed in the posterior lateral gutters along with autograft.. This was impacted into position for fusion. 2 g of powdered vancomycin was then placed deep within the wound and a deep drain was placed. We then proceeded with complex 4 layered closure first in the deep muscle with #1 PDS followed by deep fascia with #1 PDS then 0 Vicryl was used in the deep subq fascia and 2-0 Vicryl used in the superficial subq. 2-0 nylon were placed in the skin then and wound edges approximated well. The wound was then cleaned and dressed sterilely with telfa, 4x4, abd and medipore tape. The drain had good suction. The patient was placed in a hard cervical collar. The patient was transferred back to their hospital bed atraumatically. Norman head clamp was removed and pin sites were clear. Drain continued to hold suction. Patient was placed in a hard collar Patient was then awakened and extubated by the department of anesthesia having tolerated the procedure very well with no complications. They were transferred to the postoperative care unit in stable condition.
[2024-03-20] MEDS ORDERED: MAGNESIUM HYDROXIDE 2,400 MG/30 ML CUP PO PRN (15:05)
[2024-03-20] MEDS ORDERED: MAG HYDROX/AL HYDROX/SIMETH 30 ML CUP PO PRN (15:05)
[2024-03-20] MEDS: HYDROmorphone 0.5 MG/0.5 ML SYRINGE IVP PRN ×2 (15:20→16:23)
[2024-03-20] MEDS: TRANEXAMIC ACID 1,000 MG in SODIUM CHLORIDE 0.9% 100 ML IVPB ONE (17:05)
--- NOTE | 2024-03-20 17:54 | P.PN ---
Subjective Progress Note Date: 03/20/24 Subjective Patient seen and examined at bedside. No acute events overnight. Patient went to surgery today. Complaining of severe neck and back pain after surgery. Pertinent positives and negatives as discussed above, a complete review of systems was performed and all other systems are negative. Vitals: Signs Reviewed Physical Exam: General: nontoxic, no distress, appears stated age Head: atruamatic, normocephalic, symmetric, in a c-collar, drain in place, dressing not observed Eyes: EOMI, no lid lag, anicteric sclera Cardiovascular:RRR, no murmurs or gallops appreciated Lungs: clear on auscultation bilaterally Abdominal: nontender, non-distended, no rigidity soft Extremities: no edema Neuro: no cranial nerve deficits noted Psych: Alert, oriented, appropiate affect Data Received Today: Pertinent Labs: No new labs today Imaging: Prior x-ray: no acute fracture on cervical spine Assessment and Plan: Patient is a 43-year-old female with a past medical history of prior T5-T6 fracture, status post C5-T5 stabilization, GERD, bipolar disorder that presents with neck pain that radiates to the left upper extremity with numbness. Patient went to surgery today for hardware failure. Active: Cervicalgia History of heart failure status post T5-T6 fracture and stabilization no C5-T5 Status post extensive spinal surgery today Continue Dilaudid for pain management IV as needed, monitor for sedation Continue oral morphine extended release 15 p.o. every 12 hours Continue gabapentin 200 mg 3 times daily -Tylenol 650 every 6 hours scheduled -Cyclobenzaprine 5 mg 3 times daily as needed Continue senna BID -CBC and BMP tomorrow History of moderate to severe WILFRIDO Pulmonology consulted, patient will go to ICU if needed. Essential hypertension Continue amlodipine 5 mg nightly Hypothyroidism (unspecified) Continue levothyroxine 50 mcg daily GERD Continue on pantoprazole 40 mg daily Bipolar disorder Continue Seroquel 300 nightly F: No continuous IV fluids E: Replete as needed N: chopped Diet A: fall precautions DVT ppx: SCDs Code status: FULL code Anticipated discharge place: pending clinical course ANticipated discharge time: pending clinical course I have seen and evaluated the patient today. Discussed with the resident and agree with the residents finding and plan as documented in the resident's note. Changes highlighted in blue font. Objective - Vital Signs Vital signs: Vital Signs Temp 98.2 F 03/20/24 06:23 Pulse 73 03/20/24 08:11 Resp 18 03/20/24 08:11 BP 146/79 03/20/24 08:11 Pulse Ox 98 03/20/24 08:11 FiO2 Intake & Output 03/19/24 03/20/24 03/20/24 18:59 06:59 18:59 Intake Total 474 1002 Balance 474 1002 Weight 68.039 kg Intake: IV 1002 Oral 474 Other: # Voids 3 1 - Labs CBC & Chem 7: 03/15/24 07:20 03/15/24 07:20
[2024-03-20 18:32] LABS: African American GFR (CKD) >90 (>60 ml/min/1.73 sqM); Non-African American GFR(CKD) >90 (>60 ml/min/1.73 sqM)
[2024-03-20] MEDS: ACETAMINOPHEN TAB 325 MG TAB PO SCH (18:43)
[2024-03-20] MEDS: CYCLOBENZAPRINE 5 MG TAB PO PRN (20:21)
[2024-03-20] MEDS: VANCOMYCIN 1,250 MG in SODIUM CHLORIDE 0.9% 250 ML IVPB SCH (20:40)
--- NOTE | 2024-03-21 11:45 | P.PN ---
Subjective Progress Note Date: 03/21/24 Subjective Patient seen and examined at bedside. No acute events overnight. Patient is postop day 1. Patient has not had a bowel movement. Patient denies any solid food intake, but says she will try to eat today. Patient is drinking fluids. He is complaining of severe neck and back pain after surgery. She rated her pain 8 out of 10. Rendon catheter is in place. Denies any nausea vomiting and abdominal pain. Patient is using spirometer as instructed. Pertinent positives and negatives as discussed above, a complete review of systems was performed and all other systems are negative. Vitals: Signs Reviewed Physical Exam: General: nontoxic, no distress, appears stated age Head: atruamatic, normocephalic, symmetric, in a c-collar, drain in place, d ressing was clean Eyes: EOMI, no lid lag, anicteric sclera Cardiovascular:RRR, no murmurs or gallops appreciated Lungs: clear on auscultation bilaterally Abdominal: nontender, non-distended, no rigidity soft Extremities: no edema Neuro: no cranial nerve deficits noted Psych: Alert, oriented, appropiate affect Data Received Today: Pertinent Labs: WBC 6.6, hemoglobin 7.9, platelet 105, sodium 134, creatinine 0.54, glucose 119 Imaging: cervical and thoracic spine CT shows postsurgical changes Assessment and Plan: Patient is a 43-year-old female with a past medical history of prior T5-T6 fracture, status post C5-T5 stabilization, GERD, bipolar disorder that presents with neck pain that radiates to the left upper extremity with numbness. Patient is postop day 1. Active: Cervicalgia History of heart failure status post T5-T6 fracture and stabilization no C5-T5 Status post extensive spinal surgery - postop day 1 Acute blood loss anemia, anticipated outcome of surgery Thrombocytopenia, no active bleeding Continue Dilaudid for pain management IV as needed, monitor for sedation Continue oral morphine extended release 15 p.o. every 12 hours Continue gabapentin 200 mg 3 times daily -Tylenol 650 every 6 hours scheduled -Cyclobenzaprine 5 mg 3 times daily as needed Continue senna BID -on postop antibiotics per orthospine surgery -Repeat CBC and BMP tomorrow - have her resume a regular diet - monitor for bowel movement Tachycardia - secondary to pain: will order EKG to make sure she is in sinus rhythm History of moderate to severe WILFRIDO Pulmonology has been consulted, may need outpatient follow-up Essential hypertension Continue amlodipine 5 mg nightly Hypothyroidism (unspecified) Continue levothyroxine 50 mcg daily GERD Continue on pantoprazole 40 mg daily Bipolar disorder Continue Seroquel 300 nightly F: None E: Replete as needed N: chopped Diet A: fall precautions DVT ppx: SCDs Code status: FULL code Anticipated discharge place: pending clinical course ANticipated discharge time: pending clinical course I have seen and evaluated the patient today. Discussed with the resident and agree with the residents finding and plan as documented in the resident's note. Changes highlighted in blue font. Objective - Vital Signs Vital signs: Vital Signs Temp 97.5 F L 03/21/24 07:53 Pulse 103 H 03/21/24 07:53 Resp 18 03/21/24 07:53 BP 115/82 03/21/24 07:53 Pulse Ox 97 03/21/24 07:53 FiO2 Intake & Output 03/20/24 03/21/24 03/21/24 18:59 06:59 18:59 Intake Total 3177 Output Total 750 720 Balance 2427 -720 Weight 68.039 kg Intake: IV 3177 Output: Drainage 220 Back 220 Urine 400 500 Estimated Blood Loss 350 Other: Voiding Method Indwelling Catheter - Labs CBC & Chem 7: 03/21/24 11:21 03/21/24 11:21 Labs: Abnormal Lab Results - Last 24 Hours (Table) 03/20/24 Range/Units 17:56 Creatinine 0.49 L (0.52-1.04) mg/dL
--- NOTE | 2024-03-21 12:13 | CT ---
EXAMINATION TYPE: CT cervical spine wo con, CT thoracic spine wo con DATE OF EXAM: 03/21/2024 COMPARISON: 11/25/2023 HISTORY: 43-year-old female s/p revision C5-T8 decompr fusion TECHNIQUE: Contiguous axial scanning of the cervical an thoracic spine without IV contrast. Coronal a nd sagittal reconstructions performed. CT DLP: 331.2 (accession [id number]), 1032 (accession [id number]) mGycm Automated exposure control for dose reduction was used. FINDINGS: Cervical spine: Redemonstrated posterior fusion transpedicular screw fixation extending up to the T1 level. Interval revision of the more cephalad elements of the fusion hardware with placement of transvenous facet scr ews within the tibial, C3, and C4 levels on the right as well as T2, C4, and C5 levels on the left. Orthopedic hardware appears appropriately positioned. Some subcutaneous air tracking in the posterior base of the skull relates to recent operation. A surgical drain is noted. Thoracic spine: Interval extension of posterior thoracic fusion caudally now down to the T8 level. Orthopedic hardwar e appears in a factory in position. Anterior endplate spondylosis T3-T4. Prominent strandy atelectasis or scarring in the lower lungs. There appears to be a moderate-sized hernia with postsurgical change within stomach. Cholecystectomy clips. Vertebral body heights are preserved and alignment is maintained. Surgical drain in place. COMBINED IMPRESSION: 1. REVISION CERVICOTHORACIC FUSION. THE PREVIOUS MALPOSITIONED, FREE-FLOATING CERVICAL FUSION ELEMENT S HAVE BEEN REMOVED AND THE FUSION HAS BEEN EXTENDED UP TO THE C2 LEVEL. 2. THE THORACIC FUSION HAS BEEN EXTENDED DOWN FROM T6 NOW TO THE T8 LEVEL.
[2024-03-21 12:24] LABS: Basophils % (A) 0 %; Eosinophils # (A) 0.2 k/uL (0-0.7); Eosinophils % (A) 3 %; HCT 23.1 % (34.0-46.0); HGB 7.9 gm/dL (11.4-16.0); Hypochromasia Slight; Lymphocytes # (A) 0.4 k/uL (1.0-4.8); Lymphocytes % (A) 5 %; MCH 28.3 pg (25.0-35.0); MCV 83.3 fL (80.0-100.0); Mean Platelet Volume 11.8; Monocytes # (A) 0.5 k/uL (0-1.0); Monocytes % (A) 8 %; Neutrophils # (A) 5.4 k/uL (1.3-7.7); Neutrophils % (A) 82 %; Platelet Count 105 k/uL (150-450); RBC 2.78 m/uL (3.80-5.40); RDW 14.7 % (11.5-15.5); WBC 6.6 k/uL (3.8-10.6)
[2024-03-21 12:55] LABS: African American GFR (CKD) >90 (>60 ml/min/1.73 sqM); Anion Gap 1 mmol/L; Blood Urea Nitrogen 14 mg/dL (7-17); Calcium 8.3 mg/dL (8.4-10.2); Carbon Dioxide 25 mmol/L (22-30); Chloride 108 mmol/L (98-107); Glucose 119 mg/dL (74-99); Non-African American GFR(CKD) >90 (>60 ml/min/1.73 sqM); Potassium 4.1 mmol/L (3.5-5.1); Sodium 134 mmol/L (137-145)
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
--- NOTE | 2024-03-22 07:39 | P.PN ---
Subjective Progress Note Date: 03/22/24 Principal diagnosis: Cervicalgia, thoracic back pain, hardware failure status post C5-T5 stabilization for T5-T6 fracture Patient was seen at bedside this morning sitting up in bed with hard c-collar in place and dressing present over cervicothoracic spine. Patient says pain has been better this morning than it was yesterday. Patient says she has been up to the commode several times. She says she has been wearing hard c-collar at all times. Patient says most of the pain is located between the shoulder blades. Patient denies any other significant orthopedic issues at this time. Patient denies chest pain, fever, nausea, and, change in vision, loss of bowel/bladder control. Objective - Vital Signs Vital signs: Vital Signs Temp 98.8 F 03/22/24 01:35 Pulse 107 H 03/22/24 01:35 Resp 16 03/22/24 01:35 BP 118/78 03/22/24 01:35 Pulse Ox 94 L 03/22/24 01:35 FiO2 Intake & Output 03/21/24 03/22/24 03/22/24 18:59 06:59 18:59 Output Total 200 20 Balance -200 -20 Output: Drainage 200 20 Back 200 20 Other: # Voids 1 - Exam Dressing is present on this cervical thoracic spine and appears to be clean, dry, intact. Sutures are well aligned and intact. Negative for any active drainage from incision. Drain is in place with moderate serosanguineous output. Plan for dressing change in drain removal tomorrow. Sensation is equal, symmetric, by intact throughout the upper and lower extremities. There is tenderness to patient throughout the cervical and thoracic spine at midline near incision. Nontender to palpation throughout rest of exam. Patient has good range of motion throughout bilateral upper and lower extremities on exam. 3+/5 in resisted left hip flexion extension. 4/5 in all major motor groups in right lower extremity. 4-/5 in bilateral shoulders and with resisted shoulder abduct ion, forward elevation and external/internal rotation. 4/5 in all other major motor groups in bilateral upper extremities. Radial pulse intact, 2+ bilaterally. Cap refill under 3 seconds in digits of upper extremities. Negative Homans on the right lower extremity. Negative clonus on the right lo wer extremity. Positive Fauzia on the right upper extremity. Negative Fauzia on the left upper extremity. - Labs CBC & Chem 7: 03/21/24 11:21 03/21/24 11:21 Labs: Abnormal Lab Results - Last 24 Hours (Table) 03/21/24 03/21/24 Range/Units 11:21 11:21 RBC 2.78 L (3.80-5.40) m/uL Hgb 7.9 L D (11.4-16.0) gm/dL Hct 23.1 L (34.0-46.0) % Plt Count 105 L (150-450) k/uL Lymphocytes # 0.4 L (1.0-4.8) k/uL Sodium 134 L (137-145) mmol/L Chloride 108 H (98-107) mmol/L Glucose 119 H (74-99) mg/dL Calcium 8.3 L (8.4-10.2) mg/dL Assessment and Plan Assessment: 1. Cervicalgia, thoracic back pain, hardware failure status post C5-T5 stabilization for T5-T6 fracture -Postop day 2 status post OPEN TREATMENT OF T3 AND C7 FRACTURES; REVISION INSTRUMENTED POSTEROLATERAL FUSION C2-T8 Plan: 1. Cervicalgia, thoracic back pain, hardware failure status post C5-T5 stabilization for T5-T6 fracture -surgery performed 03/20/2024 - OPEN TREATMENT OF T3 AND C7 FRACTURES; REVISION INSTRUMENTED POSTEROLATERAL FUSION C2-T8. Patient stable at bedside this morning with hard c-collar and dressing and drain present over posterior cervicothoracic spine. Moderate output in drain. Will maintain drain and plan for dressing change and drain removal tomorrow. Patient may weight-bear as tolerated and use a wheelchair as needed. Maintain hard c-collar on at all times. Medication as needed. We will continue to follow patient during stay in hospital. 2. Appreciate medical management 3. Pain management -MS Contin; gabapentin; Flexeril; Tylenol 4. DVT prophylaxis -mechanical 5. GI prophylaxis -senna; Protonix 6. PT/OT -weightbearing as tolerated and use wheelchair as needed. Hard c-miguel ar on at all times 7. Encourage incentive spirometer use Time with Patient: Less than 30
[2024-03-22] MEDS: VANCOMYCIN TROUGH DUE 1 EACH MISC MISCELLANE ONE (08:26)
[2024-03-22 08:43] LABS: HCT 20.4 % (34.0-46.0); Hypochromasia Slight; MCH 26.9 pg (25.0-35.0); MCHC 31.5 g/dL (31.0-37.0); MCV 85.4 fL (80.0-100.0); Mean Platelet Volume 10.3; RBC 2.38 m/uL (3.80-5.40); RDW 14.6 % (11.5-15.5); WBC 3.7 k/uL (3.8-10.6)
[2024-03-22 08:46] LABS: African American GFR (CKD) >90 (>60 ml/min/1.73 sqM); Anion Gap 3 mmol/L; Blood Urea Nitrogen 9 mg/dL (7-17); Carbon Dioxide 25 mmol/L (22-30); Chloride 108 mmol/L (98-107); Glucose 104 mg/dL (74-99); Non-African American GFR(CKD) >90 (>60 ml/min/1.73 sqM); Potassium 3.7 mmol/L (3.5-5.1); Sodium 136 mmol/L (137-145)
[2024-03-22 08:47] LABS: Platelet Count 89 k/uL (150-450)
[2024-03-22 08:49] LABS: HGB 6.4 gm/dL (11.4-16.0)
[2024-03-22 10:00] LABS: Reticulocyte % 3.7 % (0.5-2.0)
--- NOTE | 2024-03-22 13:24 | P.PN ---
Subjective Progress Note Date: 03/22/24 Subjective Patient seen and examined at bedside. No acute events overnight. Patient is postop day 2. Patient has not had a bowel movement. Patient has been eating solid foods. Patient is drinking fluids. He is complaining of severe neck and back pain after surgery. She rated her pain 8 out of 10. Rendon catheter removed, and is voiding.. Denies any nausea vomiting and abdominal pain. Patient is using spirometer as instructed. She was seen by Ortho to talk about changing the dressing and possibly removing her drainage tubes tomorrow. Pertinent positives and negatives as discussed above, a complete review of systems was performed and all other systems are negative. Vitals: Signs Reviewed Physical Exam: General: nontoxic, no distress, appears stated age Head: atruamatic, normocephalic, symmetric, in a c-collar, drain in place, mary anne ssing was clean Eyes: EOMI, no lid lag, anicteric sclera Cardiovascular:RRR, no murmurs or gallops appreciated Lungs: clear on auscultation bilaterally Abdominal: nontender, non-distended, no rigidity soft Extremities: no edema Neuro: no cranial nerve deficits noted Psych: Alert, oriented, appropriate affect Data Received Today: Pertinent Labs: WBC: 3.7; Hgb: 6.4; platelet: 89; retic count: 3.7; LDH: 190; glucose: 104; calcium: 8.0, creatinine: 0.45 Imaging: EKG independently interpreted, shows sinus tachycardia Assessment and Plan: Patient is a 43-year-old female with a past medical history of prior T5-T6 fracture, status post C5-T5 stabilization, GERD, bipolar disorder that presents with neck pain that radiates to the left upper extremity with numbness. Patient is postop day 1. Active: Cervicalgia History of heart failure status post T5-T6 fracture and stabilization no C5-T5 Status post extensive spinal surgery - postop day 2 Continue Dilaudid for pain management IV as needed, monitor for sedation Continue oral morphine extended release 15 p.o. every 12 hours Continue gabapentin 200 mg 3 times daily -Tylenol 650 every 6 hours scheduled -Cyclobenzaprine 5 mg 3 times daily as needed Continue senna BID -on postop antibiotics per orthospine surgery - pt has resumed regular diet - monitor for bowel movement Pancytopenia - acute blood loss vs medication induced - RBC transfusion ordered for < 7.0 Hgb - LDH, haptoglobin r/o hemolysis - iron profile and transferrin ordered to r/o iron deficency anemia - Repeat CBC and CMP ordered for tomorrow morning Sinus Tachycardia - likely secondary to pain/acute blood loss: EKG displayed sinus tachycardia History of moderate to severe WILFRIDO Pulmonology has been consulted, may need outpatient follow-up Essential hypertension Continue amlodipine 5 mg nightly Hypothyroidism (unspecified) Continue levothyroxine 50 mcg daily GERD Continue on pantoprazole 40 mg daily Bipolar disorder Continue Seroquel 300 nightly F: RBC transfusion for < 7.0 Hgb E: Replete as needed N: chopped Diet A: fall precautions DVT ppx: SCDs Code status: FULL code Anticipated discharge place: pending clinical course Anticipated discharge time: pending clinical course I have seen and evaluated the patient today. Discussed with the resident and agree with the residents finding and plan as documented in the resident's note. Changes highlighted in blue font. Objective - Vital Signs Vital signs: Vital Signs Temp 98.8 F 03/22/24 01:35 Pulse 107 H 03/22/24 01:35 Resp 16 03/22/24 01:35 BP 118/78 03/22/24 01:35 Pulse Ox 94 L 03/22/24 01:35 FiO2 Intake & Output 03/21/24 03/22/24 03/22/24 18:59 06:59 18:59 Output Total 200 20 80 Balance -200 -20 -80 Output: Drainage 200 20 80 Back 200 20 80 Other: Voiding Method Bedside Commode # Voids 1 - Labs CBC & Chem 7: 03/22/24 08:19 03/22/24 08:19 Labs: Abnormal Lab Results - Last 24 Hours (Table) 03/19/24 03/21/24 03/21/24 Range/Units 12:32 11:21 11:21 WBC (3.8-10.6) k/uL RBC 2.78 L (3.80-5.40) m/uL Hgb 7.9 L D (11.4-16.0) gm/dL Hct 23.1 L (34.0-46.0) % Plt Count 105 L (150-450) k/uL Lymphocytes # 0.4 L (1.0-4.8) k/uL Retic Count (0.5-2.0) % Sodium 134 L (137-145) mmol/L Chloride 108 H (98-107) mmol/L Creatinine (0.52-1.04) mg/dL Glucose 119 H (74-99) mg/dL Calcium 8.3 L (8.4-10.2) mg/dL Crossmatch See Detail 03/22/24 03/22/24 03/22/24 Range/Units 08:19 08:19 09:43 WBC 3.7 L (3.8-10.6) k/uL RBC 2.38 L (3.80-5.40) m/uL Hgb 6.4 L* D (11.4-16.0) gm/dL Hct 20.4 L (34.0-46.0) % Plt Count 89 L (150-450) k/uL Lymphocytes # (1.0-4.8) k/uL Retic Count 3.7 H (0.5-2.0) % Sodium 136 L (137-145) mmol/L Chloride 108 H (98-107) mmol/L Creatinine 0.45 L (0.52-1.04) mg/dL Glucose 104 H (74-99) mg/dL Calcium 8.0 L (8.4-10.2) mg/dL Crossmatch
[2024-03-22 16:38] LABS: % Iron Saturation 5.07 (12.00-45.00); Ferritin 31.5 ng/mL (10.0-291.0)
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
[2024-03-23 07:04] LABS: African American GFR (CKD) >90 (>60 ml/min/1.73 sqM); Anion Gap 1 mmol/L; Blood Urea Nitrogen 6 mg/dL (7-17); Calcium 8.2 mg/dL (8.4-10.2); Carbon Dioxide 28 mmol/L (22-30); Chloride 108 mmol/L (98-107); Glucose 102 mg/dL (74-99); Non-African American GFR(CKD) >90 (>60 ml/min/1.73 sqM); Sodium 137 mmol/L (137-145)
[2024-03-23 08:42] LABS: Basophils # (A) 0.01 X 10*3/uL (0.00-0.10); Basophils % (A) 0.3 %; Eosinophils # (A) 0.25 X 10*3/uL (0.04-0.35); Eosinophils % (A) 7.2 %; HCT 25.5 % (37.2-46.3); Lymphocytes # (A) 0.59 X 10*3/uL (0.90-5.00); Lymphocytes % (A) 17.1 %; MCH 26.9 pg (27.0-32.0); MCHC 31.4 g/dL (32.0-37.0); MCV 85.9 FL (80.0-97.0); Mean Platelet Volume 12.3 FL (9.5-12.2); Monocytes # (A) 0.39 X 10*3/uL (0.20-1.00); Monocytes % (A) 11.3 %; NRBC Per 100 WBC 0 X 10*3/uL (0.00-0.01); Neutrophils % (A) 63.8 %; Platelet Count 100 X 10*3/uL (140-440); RBC 2.97 X 10*6/uL (4.10-5.20); RDW 14.6 % (11.5-14.5); WBC 3.45 X 10*3/uL (4.50-10.00)
--- NOTE | 2024-03-23 12:02 | P.PN ---
Subjective Progress Note Date: 03/23/24 Principal diagnosis: Cervicalgia, thoracic back pain, hardware failure status post C5-T5 stabilization for T5-T6 fracture Patient was seen at bedside this morning sitting up in bed with hard c-collar in place and dressing present over cervicothoracic spine. Patient says pain has been better this morning than it was yesterday. Patient says she has been up to the commode several times. She says she has been wearing hard c-collar at all times. Patient says most of the pain is located between the shoulder blades. Patient denies any other significant orthopedic issues at this time. Patient denies chest pain, fever, nausea, and, change in vision, loss of bowel/bladder control. Objective - Vital Signs Vital signs: Vital Signs Temp 98.3 F 03/23/24 08:00 Pulse 92 03/23/24 08:00 Resp 14 03/23/24 08:00 BP 114/78 03/23/24 08:00 Pulse Ox 97 03/23/24 08:00 FiO2 Intake & Output 03/22/24 03/23/24 03/23/24 18:59 06:59 18:59 Intake Total 310 Output Total 80 120 Balance 230 -120 Intake: Blood Product 310 Rc As-1 Unit 310 [id number] Output: Drainage 80 120 Back 80 120 Other: Voiding Method Bedside Commode Bedside Commode Bedside Commode - Exam Dressing is present on this cervical thoracic spine. Dressing removed and new dressing placed over incision. Incision appears to be healing well. Sutures are well aligned and intact. Negative for any active drainage from incision. Drain removed at bedside. dressing placed over drain incision. Sensation is equal, symmetric, by intact throughout the upper and lower extremities. There is tenderness to patient throughout the cervical and thoracic spine at midline near incision. Nontender to palpation throughout rest of exam. Patient has good range of motion throughout bilateral upper and lower extremities on exam. 3+/5 in resisted left hip flexion extension. 4/5 in all major motor groups in right lower extremity. 4-/5 in bilateral shoulders and with resisted shoulder abduction, forward elevation and external/internal rotation. 4/5 in all other major motor groups in bilateral upper extremities. Radial pulse intact, 2+ bilaterally. Cap refill under 3 seconds in digits of upper extremities. Negative Homans on the right lower extremity. Negative clonus on the right lower extremity. Positive Fauzia on the right upper extremity. Negative Fauzia on the left upper extremity. - Labs CBC & Chem 7: 03/23/24 06:25 03/23/24 06:25 Labs: Abnormal Lab Results - Last 24 Hours (Table) 03/19/24 03/22/24 03/22/24 Range/Units 12:32 09:44 09:45 WBC (4.50-10.00) X 10*3/uL RBC (4.10-5.20) X 10*6/uL Hgb (12.0-15.0) g/dL Hct (37.2-46.3) % MCH (27.0-32.0) pg MCHC (32.0-37.0) g/dL RDW (11.5-14.5) % Plt Count (140-440) X 10*3/uL MPV (9.5-12.2) FL Lymphocytes # (0.90-5.00) X 10*3/uL Chloride (98-107) mmol/L BUN (7-17) mg/dL Creatinine (0.52-1.04) mg/dL Glucose (74-99) mg/dL Calcium (8.4-10.2) mg/dL Iron 14 L (50-170) UG/DL % Saturation 5.07 L (12.00-45.00) Transferrin 197.0 L 196.0 L (204.0-354.0) mg/dL Crossmatch See Detail 03/23/24 03/23/24 Range/Units 06:25 06:25 WBC 3.45 L (4.50-10.00) X 10*3/uL RBC 2.97 L (4.10-5.20) X 10*6/uL Hgb 8.0 L (12.0-15.0) g/dL Hct 25.5 L (37.2-46.3) % MCH 26.9 L (27.0-32.0) pg MCHC 31.4 L (32.0-37.0) g/dL RDW 14.6 H (11.5-14.5) % Plt Count 100 L (140-440) X 10*3/uL MPV 12.3 H (9.5-12.2) FL Lymphocytes # 0.59 L (0.90-5.00) X 10*3/uL Chloride 108 H (98-107) mmol/L BUN 6 L (7-17) mg/dL Creatinine 0.36 L (0.52-1.04) mg/dL Glucose 102 H (74-99) mg/dL Calcium 8.2 L (8.4-10.2) mg/dL Iron (50-170) UG/DL % Saturation (12.00-45.00) Transferrin (204.0-354.0) mg/dL Crossmatch Assessment and Plan Assessment: 1. Cervicalgia, thoracic back pain, hardware failure status post C5-T5 stabilization for T5-T6 fracture -Postop day 3 status post OPEN TREATMENT OF T3 AND C7 FRACTURES; REVISION INSTRUMENTED POSTEROLATERAL FUSION C2-T8 Plan: 1. Cervicalgia, thoracic back pain, hardware failure status post C5-T5 stabilization for T5-T6 fracture -surgery performed 03/20/2024 - OPEN TREATMENT OF T3 AND C7 FRACTURES; REVISION INSTRUMENTED POSTEROLATERAL FUSION C 2-T8. Patient stable at bedside this morning with hard c-collar and dressing and drain present over posterior cervicothoracic spine. drain removed. drssing changed. incision healing well. Assess dressing daily. Patient may weight-bear as tolerated and use a wheelchair as needed. Maintain hard c-collar on at all times. Medication as needed. We will continue to follow patient during stay in hospital. 2. Appreciate medical management 3. Pain management -MS Contin; gabapentin; Flexeril; Tylenol 4. DVT prophylaxis -mechanical 5. GI prophylaxis -senna; Protonix 6. PT/OT -weightbearing as tolerated and use wheelchair as needed. Hard c- collar on at all times 7. Encourage incentive spirometer use Time with Patient: Less than 30
[2024-03-23] MEDS: HYDROmorphone 1 MG/ML 1 ML SYRINGE IVP PRN (12:22)
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
--- NOTE | 2024-03-23 14:51 | P.PN ---
Subjective Progress Note Date: 03/23/24 Francis Howard [address] [facility] Subjective Patient seen and examined at bedside. No acute events overnight. Patient is postop day 3. Patient has not had a bowel movement. Patient has been eating solid foods. Patient is drinking fluids. He is complaining of severe neck and back pain after surgery. She rated her pain 10 out of 10. Rendon catheter removed, and is voiding. Denies any nausea vomiting and abdominal pain. Patient is using spirometer as instructed. Patient to follow-up with physical therapy to get her to be more mobile. Pertinent positives and negatives as discussed above, a complete review of systems was performed and all other systems are negative. Vitals: Signs Reviewed Physical Exam: General: nontoxic, no distress, appears stated age Head: atruamatic, normocephalic, symmetric, in a c-collar, drain in place, dressing was clean Eyes: EOMI, no lid lag, anicteric sclera Cardiovascular:RRR, no murmurs or gallops appreciated Lungs: clear on auscultation bilaterally Abdominal: nontender, non-distended, no rigidity soft Extremities: no edema Neuro: no cranial nerve deficits noted Psych: Alert, oriented, appropriate affect Data Received Today: Pertinent Labs: Hgb: 8.0, WBC: 3.45, platelet: 100, creatinine 0.36, iron 14, TIBC 276, percent saturation 5.07 Imaging: n/a Assessment and Plan: Patient is a 43-year-old female with a past medical history of prior T5-T6 fracture, status post C5-T5 stabilization, GERD, bipolar disorder that presents with neck pain that radiates to the left upper extremity with numbness. Patient is postop day 3. Active: Cervicalgia History of heart failure status post T5-T6 fracture and stabilization no C5-T5 Status post extensive spinal surgery - postop day 3 Acute blood loss anemia, anticipated outcome of surgery, status post 1 unit of PRBCs Iron deficiency anemia Continue Dilaudid for pain management IV as needed, monitor for sedation, change from T3-T4 Continue oral morphine extended release 15 p.o. every 12 hours Continue gabapentin 200 mg 3 times daily -Tylenol 650 every 6 hours scheduled -Cyclobenzaprine 5 mg 3 times daily as needed Continue senna BID -on postop antibiotics per orthospine surgery, on IV vancomycin, monitor for renal toxicity - pt has resumed regular diet - monitor for bowel movement Pancytopenia, improving -Repeat CBC tomorrow Sinus Tachycardia, resolved - likely secondary to pain/acute blood loss: EKG displayed sinus tachycardia. will continue to monitor History of moderate to severe WILFRIDO Pulmonology has been consulted, may need outpatient follow-up Essential hypertension Continue amlodipine 5 mg nightly Hypothyroidism (unspecified) Continue levothyroxine 50 mcg daily GERD Continue on pantoprazole 40 mg daily Bipolar disorder Continue Seroquel 300 nightly F: Encourage oral E: Replete as needed N: chopped Diet A: fall precautions DVT ppx: SCDs Code status: FULL code Anticipated discharge place: pending clinical course Anticipated discharge time: pending clinical course I have seen and evaluated the patient today. Discussed with the resident and agree with the residents finding and plan as documented in the resident's note. Changes highlighted in blue font. Objective - Vital Signs Vital signs: Vital Signs Temp 98.3 F 03/23/24 08:00 Pulse 92 03/23/24 08:00 Resp 14 03/23/24 08:00 BP 114/78 03/23/24 08:00 Pulse Ox 97 03/23/24 08:00 FiO2 Intake & Output 03/22/24 03/23/24 03/23/24 18:59 06:59 18:59 Intake Total 310 Output Total 80 120 Balance 230 -120 Intake: Blood Product 310 Rc As-1 Unit 310 [id number] Output: Drainage 80 120 Back 80 120 Other: Voiding Method Bedside Commode Bedside Commode Bedside Commode - Labs CBC & Chem 7: 03/23/24 06:25 03/23/24 06:25 Labs: Abnormal Lab Results - Last 24 Hours (Table) 03/22/24 03/22/24 03/23/24 Range/Units 09:44 09:45 06:25 WBC (4.50-10.00) X 10*3/uL RBC (4.10-5.20) X 10*6/uL Hgb (12.0-15.0) g/dL Hct (37.2-46.3) % MCH (27.0-32.0) pg MCHC (32.0-37.0) g/dL RDW (11.5-14.5) % Plt Count (140-440) X 10*3/uL MPV (9.5-12.2) FL Lymphocytes # (0.90-5.00) X 10*3/uL Chloride 108 H (98-107) mmol/L BUN 6 L (7-17) mg/dL Creatinine 0.36 L (0.52-1.04) mg/dL Glucose 102 H (74-99) mg/dL Calcium 8.2 L (8.4-10.2) mg/dL Iron 14 L (50-170) UG/DL % Saturation 5.07 L (12.00-45.00) Transferrin 197.0 L 196.0 L (204.0-354.0) mg/dL 03/23/24 Range/Units 06:25 WBC 3.45 L (4.50-10.00) X 10*3/uL RBC 2.97 L (4.10-5.20) X 10*6/uL Hgb 8.0 L (12.0-15.0) g/dL Hct 25.5 L (37.2-46.3) % MCH 26.9 L (27.0-32.0) pg MCHC 31.4 L (32.0-37.0) g/dL RDW 14.6 H (11.5-14.5) % Plt Count 100 L (140-440) X 10*3/uL MPV 12.3 H (9.5-12.2) FL Lymphocytes # 0.59 L (0.90-5.00) X 10*3/uL Chloride (98-107) mmol/L BUN (7-17) mg/dL Creatinine (0.52-1.04) mg/dL Glucose (74-99) mg/dL Calcium (8.4-10.2) mg/dL Iron (50-170) UG/DL % Saturation (12.00-45.00) Transferrin (204.0-354.0) mg/dL
[2024-03-23] MEDS: SENNOSIDES-DOCUSATE SODIUM 1 EACH TAB PO PRN (20:46)
--- NOTE | 2024-03-24 06:51 | P.PN ---
Subjective Progress Note Date: 03/24/24 Principal diagnosis: Cervicalgia, thoracic back pain, hardware failure status post C5-T5 stabilization for T5-T6 fracture Patient was seen at bedside this morning sitting up in bed with hard c-collar in place and dressing present over cervicothoracic spine. Patient says she did have a rough night last night in regards to the pain in her neck. Patient is hoping to work with therapy this morning. She says she has been wearing hard c- collar at all times. Patient says most of the pain is located between the shoulder blades. Patient denies any other significant orthopedic issues at this time. Patient denies chest pain, fever, nausea, and, change in vision, loss of bowel/bladder control. Objective - Vital Signs Vital signs: Vital Signs Temp 97.6 F 03/24/24 02:00 Pulse 94 03/24/24 02:00 Resp 18 03/23/24 20:00 BP 112/78 03/24/24 02:00 Pulse Ox 93 L 03/24/24 02:00 FiO2 Intake & Output 03/23/24 03/23/24 03/24/24 06:59 18:59 06:59 Output Total 120 Balance -120 Output: Drainage 120 Back 120 Other: Voiding Method Bedside Commode Bedside Commode # Voids 1 1 - Exam Dressing is present on this cervicothoracic spine. Incision appears to be healing well. Sutures are well aligned and intact. Negative for any active drainage from incision. Sensation is equal, symmetric, by intact throughout the upper and lower extremities. There is tenderness to patient throughout the cervical and thoracic spine at midline near incision. Nontender to palpation throughout rest of exam. Patient has good range of motion throughout bilateral upper and lower extremities on exam. 3+/5 in resisted left hip flexion extension. 4/5 in all major motor groups in right lower extremity. 4-/5 in bilateral shoulders and with resisted shoulder abduction, forward elevation and external/internal rotation. 4/5 in all other major motor groups in bilateral upper extremities. Radial pulse intact, 2+ bilaterally. Cap refill under 3 seconds in digits of upper extremities. Negative Homans on the right lower e xtremity. Negative clonus on the right lower extremity. Positive Fauzia on the right upper extremity. Negative Fauzia on the left upper extremity. - Labs CBC & Chem 7: 03/23/24 06:25 03/23/24 06:25 Labs: Abnormal Lab Results - Last 24 Hours (Table) 03/23/24 03/23/24 Range/Units 06:25 06:25 WBC 3.45 L (4.50-10.00) X 10*3/uL RBC 2.97 L (4.10-5.20) X 10*6/uL Hgb 8.0 L (12.0-15.0) g/dL Hct 25.5 L (37.2-46.3) % MCH 26.9 L (27.0-32.0) pg MCHC 31.4 L (32.0-37.0) g/dL RDW 14.6 H (11.5-14.5) % Plt Count 100 L (140-440) X 10*3/uL MPV 12.3 H (9.5-12.2) FL Lymphocytes # 0.59 L (0.90-5.00) X 10*3/uL Chloride 108 H (98-107) mmol/L BUN 6 L (7-17) mg/dL Creatinine 0.36 L (0.52-1.04) mg/dL Glucose 102 H (74-99) mg/dL Calcium 8.2 L (8.4-10.2) mg/dL Assessment and Plan Assessment: 1. Cervicalgia, thoracic back pain, hardware failure status post C5-T5 stabilization for T5-T6 fracture -Postop day 4 status post OPEN TREATMENT OF T3 AND C7 FRACTURES; REVISION INSTRUMENTED POSTEROLATERAL FUSION C2-T8 Plan: 1. Cervicalgia, thoracic back pain, hardware failure status post C5-T5 stabilization for T5-T6 fracture -surgery performed 03/20/2024 - OPEN CARMEN ATMENT OF T3 AND C7 FRACTURES; REVISION INSTRUMENTED POSTEROLATERAL FUSION C2- T8. Patient stable at bedside this morning with hard c-collar and dressing present over posterior cervicothoracic spine. incision healing well. Assess dressing daily. Patient may weight-bear as tolerated and use a wheelchair as needed. Maintain hard c-collar on at all times. Medication as needed. We will continue to follow patient during stay in hospital. 2. Appreciate medical management 3. Pain management -MS Contin; gabapentin; Flexeril; Tylenol 4. DVT prophylaxis -mechanical 5. GI prophylaxis -senna; Protonix 6. PT/OT -weightbearing as tolerated and use wheelchair as needed. Hard c- collar on at all times 7. Encourage incentive spirometer use Time with Patient: Less than 30
[2024-03-24 09:29] LABS: BUN/Creat Ratio 16.75 Ratio (12.00-20.00); Blood Urea Nitrogen 6.7 mg/dL (9.0-27.0); Calcium 8.4 mg/dL (8.7-10.3); Carbon Dioxide 26.2 mmol/L (21.6-31.8); Chloride 106 mmol/L (96-109); Glucose 107 mg/dL (70-110); Potassium 3.7 mmol/L (3.5-5.5); Sodium 142 mmol/L (135-145)
[2024-03-24 09:34] LABS: Basophils # (A) 0.02 X 10*3/uL (0.00-0.10); Basophils % (A) 0.7 %; Eosinophils # (A) 0.21 X 10*3/uL (0.04-0.35); Eosinophils % (A) 7.1 %; HCT 27.3 % (37.2-46.3); HGB 8.8 g/dL (12.0-15.0); Lymphocytes # (A) 0.52 X 10*3/uL (0.90-5.00); Lymphocytes % (A) 17.7 %; MCH 27.6 pg (27.0-32.0); MCHC 32.2 g/dL (32.0-37.0); MCV 85.6 FL (80.0-97.0); Mean Platelet Volume 11.7 FL (9.5-12.2); Monocytes # (A) 0.33 X 10*3/uL (0.20-1.00); Monocytes % (A) 11.2 %; NRBC Per 100 WBC 0 X 10*3/uL (0.00-0.01); Neutrophils # (A) 1.85 X 10*3/uL (1.80-7.70); Platelet Count 124 X 10*3/uL (140-440); RBC 3.19 X 10*6/uL (4.10-5.20); RDW 14.9 % (11.5-14.5); WBC 2.94 X 10*3/uL (4.50-10.00)
[2024-03-24] MEDS: KETOROLAC 15 MG/ML 1 ML VIAL IVP PRN (11:40)
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
--- NOTE | 2024-03-24 14:11 | P.PN ---
Subjective Progress Note Date: 03/24/24 Subjective Patient seen and examined at bedside. No acute events overnight. Patient is postop day 4. Patient has not had a bowel movement. Patient has been eating solid foods. Patient is drinking fluids. He is complaining of severe neck and back pain after surgery. She rated her pain 10 out of 10. Rendon catheter removed, and is voiding. Denies any nausea vomiting and abdominal pain. Patient to follow-up with physical therapy to get her to be more mobile. Pertinent positives and negatives as discussed above, a complete review of systems was performed and all other systems are negative. Vitals: Signs Reviewed Physical Exam: General: nontoxic, no distress, appears stated age Head: atruamatic, normocephalic, symmetric, in a c-collar, drain in place, dressing was clean Eyes: EOMI, no lid lag, anicteric sclera Cardiovascular:RRR, no murmurs or gallops appreciated Lungs: clear on auscultation bilaterally Abdominal: nontender, non-distended, no rigidity soft Extremities: no edema Neuro: no cranial nerve deficits noted Psych: Alert, oriented, appropriate affect Data Received Today: Pertinent Labs: Hgb 8.8, platelet 124, potassium 3.7, creatinine 0.4 Imaging: n/a Assessment and Plan: Patient is a 43-year-old female with a past medical history of prior T5-T6 fracture, status post C5-T5 stabilization, GERD, bipolar disorder that presents with neck pain that radiates to the left upper extremity with numbness. Patient is postop day 4. Active: Cervicalgia History of hard peralta failure Status post extensive spinal surgery - postop day 4 Acute blood loss anemia, anticipated outcome of surgery, status post 1 unit of PRBCs Iron deficiency anemia Taper down Dilaudid to 0.5 mg IV, monitor for sedation, change from every 4 to every 6 hours, monitor sedation Continue oral morphine extended release 15 p.o. every 12 hours Increased dose of gabapentin to 400 mg 3 times daily -Tylenol 650 every 6 hours scheduled Placed on Toradol 15 mg IV every 6 hours as needed -Cyclobenzaprine 5 mg 3 times daily as needed Continue senna BID -on postop antibiotics per orthospine surgery, on IV vancomycin, monitor for renal toxicity - on regular diet - monitor for bowel movement Cleared by physical therapy for home rehab Tapering down IV Dilaudid for home discharge Ortho note reviewed, continue current management Pancytopenia, improving -Repeat CBC tomorrow Sinus Tachycardia, resolved History of moderate to severe WILFRIDO Pulmonology note reviewed, continue current management Essential hypertension Continue amlodipine 5 mg nightly Hypothyroidism (unspecified) Continue levothyroxine 50 mcg daily GERD Continue on pantoprazole 40 mg daily Bipolar disorder Continue Seroquel 300 nightly F: Encourage oral E: Replete as needed N: chopped Diet A: fall precautions DVT ppx: SCDs Code status: FULL code Anticipated discharge place: pending clinical course Anticipated discharge time: pending clinical course I have seen and evaluated the patient today. Discussed with the resident and agree with the residents finding and plan as documented in the resident's note. Changes highlighted in blue font. Objective - Vital Signs Vital signs: Vital Signs Temp 98.8 F 03/24/24 07:09 Pulse 92 03/24/24 07:09 Resp 20 03/24/24 07:09 BP 127/83 03/24/24 07:09 Pulse Ox 97 03/24/24 07:09 FiO2 Intake & Output 03/23/24 03/24/24 03/24/24 18:59 06:59 18:59 Other: Voiding Method Bedside Commode Bedside Commode # Voids 1 1 - Labs CBC & Chem 7: 03/24/24 06:55 03/24/24 06:55 Labs: Abnormal Lab Results - Last 24 Hours (Table) 03/24/24 03/24/24 Range/Units 06:55 06:55 WBC 2.94 L (4.50-10.00) X 10*3/uL RBC 3.19 L (4.10-5.20) X 10*6/uL Hgb 8.8 L (12.0-15.0) g/dL Hct 27.3 L (37.2-46.3) % RDW 14.9 H (11.5-14.5) % Plt Count 124 L (140-440) X 10*3/uL Lymphocytes # 0.52 L (0.90-5.00) X 10*3/uL BUN 6.7 L (9.0-27.0) mg/dL Creatinine 0.4 L (0.6-1.5) mg/dL Calcium 8.4 L (8.7-10.3) mg/dL
[2024-03-24] MEDS: HYDROmorphone 0.5 MG/0.5 ML SYRINGE IVP PRN (15:07)
[2024-03-24] MEDS: GABAPENTIN 400 MG CAP PO SCH (15:07)
[2024-03-25 07:39] LABS: African American GFR (CKD) >90 (>60 ml/min/1.73 sqM); Non-African American GFR(CKD) >90 (>60 ml/min/1.73 sqM)
--- NOTE | 2024-03-25 08:41 | P.PN ---
Subjective Progress Note Date: 03/25/24 Principal diagnosis: Cervicalgia, thoracic back pain, hardware failure status post C5-T5 stabilization for T5-T6 fracture Patient was seen at bedside this morning sitting up in bed with hard c-collar in place and dressing present over cervicothoracic spine. Patient says she did have a rough night last night in regards to the pain in her neck. Patient says toradol is not working at all. Patient says she would like to talk with pain management doctor in regards to medication. Patient is hoping to work with therapy this morning. She says she has been wearing hard c-collar at all times. Patient says most of the pain is located between the shoulder blades. Patient denies any other significant orthopedic issues at this time. Patient denies chest pain, fever, nausea, and, change in vision, loss of bowel/bladder control. Objective - Vital Signs Vital signs: Vital Signs Temp 97.9 F 03/25/24 07:03 Pulse 91 03/25/24 07:03 Resp 17 03/25/24 07:03 BP 154/102 03/25/24 07:03 Pulse Ox 93 L 03/25/24 07:03 FiO2 Intake & Output 03/24/24 03/25/24 03/25/24 18:59 06:59 18:59 Other: Voiding Method Bedside Commode Bedside Commode # Voids 3 1 - Exam Dressing is present on this cervicothoracic spine. Incision appears to be h ealing well. Sutures are well aligned and intact. Negative for any active drainage from incision. Sensation is equal, symmetric, by intact throughout the upper and lower extremities. There is tenderness to patient throughout the cervical and thoracic spine at midline near incision. Nontender to palpation throughout rest of exam. Patient has good range of motion throughout bilateral upper and lower extremities on exam. 3+/5 in resisted left hip flexion extension. 4/5 in all major motor groups in right lower extremity. 4-/5 in bilateral shoulders and with resisted shoulder abduction, forward elevation and external/internal rotation. 4/5 in all other major motor groups in bilateral upper extremities. Radial pulse intact, 2+ bilaterally. Cap refill under 3 seconds in digits of upper extremities. Negative Homans on the right lower extremity. Negative clonus on the right lower extremity. Positive Fauzia on the right upper extremity. Negative Fauzia on the left upper extremity. - Labs CBC & Chem 7: 03/24/24 06:55 03/25/24 07:07 Labs: Abnormal Lab Results - Last 24 Hours (Table) 03/24/24 03/24/24 03/25/24 Range/Units 06:55 06:55 07:07 WBC 2.94 L (4.50-10.00) X 10*3/uL RBC 3.19 L (4.10-5.20) X 10*6/uL Hgb 8.8 L (12.0-15.0) g/dL Hct 27.3 L (37.2-46.3) % RDW 14.9 H (11.5-14.5) % Plt Count 124 L (140-440) X 10*3/uL Lymphocytes # 0.52 L (0.90-5.00) X 10*3/uL BUN 6.7 L (9.0-27.0) mg/dL Creatinine 0.4 L 0.39 L (0.6-1.5) mg/dL Calcium 8.4 L (8.7-10.3) mg/dL Assessment and Plan Assessment: 1. Cervicalgia, thoracic back pain, hardware failure status post C5-T5 stabilization for T5-T6 fracture -Postop day 5 status post OPEN TREATMENT OF T3 AND C7 FRACTURES; REVISION INSTRUMENTED POSTEROLATERAL FUSION C2-T8 Plan: 1. Cervicalgia, thoracic back pain, hardware failure status post C5-T5 stabilization for T5-T6 fracture -surgery performed 03/20/2024 - OPEN TREATMENT OF T3 AND C7 FRACTURES; REVISION INSTRUMENTED POSTEROLATERAL FUSION C2-T8. Patient stable at bedside this morning with hard c-collar and dressing present over posterior cervicothoracic spine. incision healing well. Assess dressing daily. Patient may weight-bear as tolerated and use a wheelchair as needed. Maintain hard c-collar on at all times. Medication as needed. Consult pain management. We will continue to follow patient during stay in hospital. 2. Appreciate medical management 3. Pain management -MS Contin; gabapentin; Flexeril; Tylenol 4. DVT prophylaxis -mechanical 5. GI prophylaxis -senna; Protonix 6. PT/OT -weightbearing as tolerated and use wheelchair as needed. Hard c- collar on at all times 7. Encourage incentive spirometer use Time with Patient: Less than 30
[2024-03-25] MEDS: VANCOMYCIN TROUGH DUE 1 EACH MISC MISCELLANE ONE (08:58)
[2024-03-25] MEDS: HYDROmorphone 0.5 MG/0.5 ML SYRINGE IVP STA (09:41)
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
--- NOTE | 2024-03-25 14:02 | P.PN ---
Subjective Progress Note Date: 03/25/24 Subjective Patient seen and examined at bedside. No acute events overnight. Patient is postop day 4. Patient has not had a bowel movement. Patient has been eating solid foods. Patient is drinking fluids. He is complaining of severe neck and back pain after surgery. She rated her pain 10 out of 10. Rendon catheter removed, and is voiding. Denies any nausea vomiting and abdominal pain. Patient to follow-up with physical therapy to get her to be more mobile. Pertinent positives and negatives as discussed above, a complete review of systems was performed and all other systems are negative. Vitals: Signs Reviewed Physical Exam: General: nontoxic, no distress, appears stated age Head: atruamatic, normocephalic, symmetric, in a c-collar, drain in place, dressing was clean Eyes: EOMI, no lid lag, anicteric sclera Cardiovascular:RRR, no murmurs or gallops appreciated Lungs: clear on auscultation bilaterally Abdominal: nontender, non-distended, no rigidity soft Extremities: no edema, left leg amputee Neuro: no cranial nerve deficits noted Psych: Alert, oriented, appropriate affect Data Received Today: Pertinent Labs: Hgb 8.8, platelet 124, potassium 3.7, creatinine 0.4 Imaging: n/a Assessment and Plan: Patient is a 43-year-old female with a past medical history of prior T5-T6 fracture, status post C5-T5 stabilization, GERD, bipolar disorder that presents with neck pain that radiates to the left upper extremity with numbness. Patient is postop day 4. Active: Cervicalgia History of hard peralta failure Status post extensive spinal surgery - postop day 4 Acute blood loss anemia, anticipated outcome of surgery, status post 1 unit of PRBCs Iron deficiency anemia Discontinue IV Dilaudid, patient takes oxycodone at home, started on oxycodone 5 every 6 hours as needed Continue oral morphine extended release 15 p.o. every 12 hours Continue increased dose of gabapentin to 400 mg 3 times daily -Tylenol 650 every 6 hours scheduled Continue on Toradol 15 mg IV every 6 hours as needed -Cyclobenzaprine 5 mg 3 times daily as needed Continue senna BID -on postop antibiotics per orthospine surgery, on IV vancomycin, monitor for renal toxicity - on regular diet - monitor for bowel movement Cleared by physical therapy for home rehab Ortho note reviewed, continue current management pain management consulted Pancytopenia, improving -Repeat CBC tomorrow Sinus Tachycardia, resolved History of moderate to severe WILFRIDO Pulmonology note reviewed, continue current management Essential hypertension Continue amlodipine 5 mg nightly Hypothyroidism (unspecified) Continue levothyroxine 50 mcg daily GERD Continue on pantoprazole 40 mg daily Bipolar disorder Continue Seroquel 300 nightly F: Encourage oral E: Replete as needed N: chopped Diet A: fall precautions DVT ppx: SCDs Code status: FULL code Anticipated discharge place: pending clinical course Anticipated discharge time: pending clinical course Objective - Vital Signs Vital signs: Vital Signs Temp 97.9 F 03/25/24 07:03 Pulse 91 03/25/24 07:03 Resp 17 03/25/24 07:03 BP 137/96 03/25/24 09:07 Pulse Ox 93 L 03/25/24 07:03 FiO2 Intake & Output 03/24/24 03/25/24 03/25/24 18:59 06:59 18:59 Other: Voiding Method Bedside Commode Bedside Commode # Voids 3 1 - Labs CBC & Chem 7: 03/24/24 06:55 03/25/24 07:07 Labs: Abnormal Lab Results - Last 24 Hours (Table) 03/25/24 Range/Units 07:07 Creatinine 0.39 L (0.52-1.04) mg/dL
[2024-03-25] MEDS ORDERED: ZOLPIDEM 5 MG TAB PO PRN (22:44)
--- NOTE | 2024-03-26 08:33 | P.PN ---
Subjective Progress Note Date: 03/26/24 Principal diagnosis: 1. Cervicalgia 2. Thoracic back pain 3. Acute C3 and T7 vertebral fractures 4. Hardware failure status post C5-T5 stabilization for T5-T6 fracture Patient seen and examined this morning. Patient is currently resting in bed. Hard cervical collar is in place. She is stating that her pain has continued to be uncontrolled. She is repositioning herself in bed. She states she has been up one time since surgery. Informed patient that she will be working with Physical Therapy today and that she needs to push through some of this post op pain. Patient is hesitant. She is requesting possible ARBEN at discharge. Patient will benefit from at least a week to regain strength and stability. Surgical incision to the posterior cervical/thoracic spine. Dressing is CDI. Patient is cleared from an Orthopedic standpoint for discharge when medically stable. No acute concerns at this time. Objective - Vital Signs Vital signs: Vital Signs Temp 97.8 F 03/26/24 02:00 Pulse 91 03/26/24 02:00 Resp 18 03/25/24 20:00 BP 132/82 03/26/24 02:00 Pulse Ox 98 03/26/24 02:00 FiO2 Intake & Output 03/25/24 03/26/24 03/26/24 18:59 06:59 18:59 Other: Voiding Method Bedside Commode # Voids 1 - Exam Physical Examination General: The patient is awake and alert, in no acute distress Skin: Skin is warm and dry with no obvious rashes or lesions. Surgical incision to the posterior cervical and thoracic spine. Dressing is clean dry and intact. Eye: Pupils are equal, round and reactive to light, extra-ocular movements are intact; there is normal conjunctiva bilaterally. Neck: The neck is supple, There is moderate tenderness to palpation around incision. Range of motion is limited due to surgery and hard cervical collar. Gastrointestinal: Soft, non-distended, non-tender abdomen. Back: There is no tenderness to palpation in the midline, paralumbar, parathoracic or buttocks region. There is no obvious deformity . Musculoskeletal: ROM limited secondary to pain and stiffness from surgical procedure. Muscle strength in all major muscle groups of bilateral upper extremities 4/5, bilateral lower extremities 4/5. Patient does have a left AKA. Neurological: CN 2-12 intact. There are no obvious motor or sensory deficits. Movement and coordination equal and intact. Sensory exam to light touch intact C5-T1 and intact from L2-S1. Reflexes 2/4 in bilateral upper and lower ex tremities. Negative Hoffmans, babinski on right and clonus on right signs. Psychiatric: Cooperative, appropriate mood & affect, normal judgment. - Labs CBC & Chem 7: 03/24/24 06:55 03/25/24 07:07 Assessment and Plan Assessment: Postop day 6: C2-T9 open treatment fracture, pseudoarthrosis correction and stabilization 1. Cervicalgia 2. Thoracic back pain 3. Acute C3 and T7 vertebral fractures 4. Hardware failure status post C5-T5 stabilization for T5-T6 fracture Plan: -Appreciate transformation consultant and team management. -Activity: Ambulate QID, OOB all meals, up and about, limit lifting bending twisting to less than 5 lbs. Use walker or cane if needed for stability. -Daily PT/OT, increase ambulation strength and balance. -Hard cervical collar at all times, may remove for showers. -Pain control: Adequate at this time, Consult has been placed for Pain Management. -Meds: reviewed -GI ppx: senna, Miralax -DVT PPX: Heparin, SCDs -Hygiene: Maintain dressing clean and dry. Patient may shower, remove dressings and allow soapy water to run over incision. Pat dry and apply clean gauze dressing. -Encourage IS 10x/hr -Dispo: Patient is cleared from orthopedic standpoint for discharge. Patient did discuss possible need for ARBEN. *I reviewed and discussed this case with my attending Dr. Tan, whom has reviewed this chart and films and is in agreement with assessment and plan of care as outlined above. I have personally seen and examined the patient, performed the documentation and the assessment and plan as written. Number of minutes spent on the visit: 20m.
[2024-03-26] MEDS: HEPARIN SODIUM,PORCINE 5,000 UNIT/ML 1 ML VIAL SQ SCH (09:00)
--- NOTE | 2024-03-26 13:00 | P.PN ---
Subjective Progress Note Date: 03/26/24 Subjective Patient seen and examined at bedside. No acute events overnight. Patient s/p back surgery. Patient has not had a bowel movement. Patient has been eating solid foods. Patient is drinking fluids. He is complaining of severe neck and back pain after surgery. She rated her pain 10 out of 10, slightly better today . Rendon catheter removed, and is voiding. Denies any nausea vomiting and abdominal pain. Patient to follow-up with physical therapy to get her to be more mobile. Pertinent positives and negatives as discussed above, a complete review of systems was performed and all other systems are negative. Vitals: Signs Reviewed Physical Exam: General: nontoxic, no distress, appears stated age Head: atruamatic, normocephalic, symmetric, in a c-collar, drain in place, dressing was clean Eyes: EOMI, no lid lag, anicteric sclera Cardiovascular:RRR, no murmurs or gallops appreciated Lungs: clear on auscultation bilaterally Abdominal: nontender, non-distended, no rigidity soft Extremities: no edema, left leg amputee Neuro: no cranial nerve deficits noted Psych: Alert, oriented, appropriate affect Data Received Today: Pertinent Labs: No new labs Imaging: n/a Assessment and Plan: Patient is a 43-year-old female with a past medical history of prior T5-T6 fracture, status post C5-T5 stabilization, GERD, bipolar disorder that presents with neck pain that radiates to the left upper extremity with numbness. Patient is postop day 6. Active: Cervicalgia History of hard peralta failure Status post extensive spinal surgery Acute blood loss anemia, anticipated outcome of surgery, status post 1 unit of PRBCs Iron deficiency anemia -Discontinue IV Dilaudid, patient takes oxycodone at home, continue on oxycodone 5 every 6 hours as needed - Continue oral morphine extended release 15 p.o. every 12 hours -Continue increased dose of gabapentin to 400 mg 3 times daily -Tylenol 650 every 6 hours scheduled -Continue on Toradol 15 mg IV every 6 hours as needed -Cyclobenzaprine 5 mg 3 times daily as needed Continue senna BID -on postop antibiotics per orthospine surgery, on IV vancomycin, monitor for renal toxicity - on regular diet - monitor for bowel movement - Ortho note reviewed, patient cleared from ortho standpoint -resumed home amitriptyline 25 nightly - awaiting discharge to [facility], pending Auth -Pain management also consulted Pancytopenia, improving Sinus Tachycardia, resolved History of moderate to severe WILFRIDO Pulmonology following, continue current management Essential hypertension Continue amlodipine 5 mg nightly Hypothyroidism (unspecified) Continue levothyroxine 50 mcg daily GERD Continue on pantoprazole 40 mg daily Bipolar disorder Continue Seroquel 300 nightly F: Encourage oral E: Replete as needed N: chopped Diet A: fall precautions DVT ppx: SCDs Code status: FULL code Anticipated discharge place: [facility] Anticipated discharge time: pending auth I have seen and evaluated the patient today. Discussed with the resident and agree with the residents finding and plan as documented in the resident's note. Changes highlighted in blue font. Objective - Vital Signs Vital signs: Vital Signs Temp 98.5 F 03/26/24 07:59 Pulse 67 03/26/24 07:59 Resp 14 03/26/24 07:59 BP 146/97 03/26/24 07:59 Pulse Ox 90 L 03/26/24 07:59 FiO2 Intake & Output 03/25/24 03/26/24 03/26/24 18:59 06:59 18:59 Intake Total 712 Balance 712 Intake: Oral 712 Other: Voiding Method Bedside Commode Bedside Commode # Voids 1 - Labs CBC & Chem 7: 03/24/24 06:55 03/25/24 07:07
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
[2024-03-26] MEDS: AMITRIPTYLINE HCL 25 MG TAB PO SCH (20:31)
[2024-03-27 06:05] LABS: African American GFR (CKD) >90 (>60 ml/min/1.73 sqM); Anion Gap 5 mmol/L; Blood Urea Nitrogen 16 mg/dL (7-17); Calcium 8.6 mg/dL (8.4-10.2); Carbon Dioxide 23 mmol/L (22-30); Chloride 111 mmol/L (98-107); Glucose 98 mg/dL (74-99); Non-African American GFR(CKD) >90 (>60 ml/min/1.73 sqM); Potassium 4.4 mmol/L (3.5-5.1); Sodium 139 mmol/L (137-145)
[2024-03-27 07:34] LABS: Hypochromasia Slight; MCH 28.5 pg (25.0-35.0); MCHC 32.9 g/dL (31.0-37.0); MCV 86.4 fL (80.0-100.0); Mean Platelet Volume 11.2; RDW 15.8 % (11.5-15.5); WBC 2.9 k/uL (3.8-10.6)
[2024-03-27 07:35] LABS: HGB 8.2 gm/dL (11.4-16.0)
[2024-03-27 07:36] LABS: Platelet Count 144 k/uL (150-450)
[2024-03-27 08:08] VITALS: RESP 17
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
[2024-03-27 14:03] VITALS: BP 141/93; PULSE 93; TEMP 98.1
--- NOTE | 2024-03-27 14:52 | P.DS ---
Providers Date of admission: 03/13/24 21:33 Discharge Diagnosis: Cervicalgia Pancytopenia History of moderate to severe WILFRIDO Essential hypertension Hypothyroidism (unspecified) GERD Bipolar disorder Hospital Course: Patient is a 43-year-old female with past medical history of hypertension, hypothyroidism, GERD, bipolar disorder came in for refractory neck pain that radiated to the upper left extremity with some numbness and tingling. She states this is chronic in nature but says it has gotten worse over time. She has been following up with Ortho as an outpatient and planned to have surgery but due to the nature of her pain she decided to come in and be reevaluated for her worsening neck pain. She denies any fever chills nausea, vomiting, chest pain, or difficulty breathing, changes in urinary or bowel habits, denies any GI bleeding. 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 After surgery patient was placed on guideline medical therapy for pain management. She was placed on postop antibiotics. Postop she had a Rendon catheter in place that is now removed, and is voiding. During her stay patient had acute blood loss anemia due to anticipated outcome of extensive back surgery. She was given a blood transfusion, due to Hgb < 7, to correct anemia and is now resolved. Patient was seen by and cleared by PT/OT. She is to be discharged to subacute rehab. Vital signs reviewed and stable. Physical Exam: General non-toxic, no distress, appears appropriate age Derm: warm, dry Head atruamatic, normocephalic, symmetric, in a c-collar, dressing was clean Eyes: EMOI, no lid lag Mouth: no lip lesion, mucus membranes moist Cardiovascular: S1S2 reg, no murmur Lungs: CTA bilateral, no rhonchi, no rales, no accessory muscle use Abdominal: soft, non-tender to palpation, no guarding, no appreciable organomegaly Ext: no edema, left leg amputee Neuro: CN II-XI grossly intact, no focal neuro deficits Psych: alert, oriented, appropriate affect A total of [] minutes of time were spent preparing this complex discharge summary. Patient was discharge on [] Expected date of discharge: 03/27/24 Attending physician: Adalid Danielson MD Consults: 03/13/24 21:30 Consult Physician Urgent Consulting Provider: Hayden Tan Consult Reason/Comments: Neck/back pain Do you want consulting provider notified?: Yes 03/19/24 13:12 Consult Physician Routine Consulting Provider: Gloria Cheatham Consult Reason/Comments: wilfrido, known to you, will likely need to be in ICU post op Do you want consulting provider notified?: Yes Primary care physician: Nora Tellez MD Hospital Course: I have seen and evaluated the patient today. Discussed with the resident and agree with the residents finding and plan as documented in the resident's note. Patient Condition at Discharge: Fair Plan - Discharge Summary New Discharge Prescriptions: New Gabapentin [Neurontin] 400 mg PO TID 3 Days #9 cap Acetaminophen Tab [Tylenol] 650 mg PO Q6HR PRN 3 Days #12 tab PRN Reason: Pain Magnesium Hydroxide [Milk of Magnesia] 2,400 mg PO DAILY PRN ml PRN Reason: Constipation diphenhydrAMINE [Benadryl] 25 mg PO QID PRN cap PRN Reason: Itching oxyCODONE HCL [OxyIR] 5 mg PO Q6HR PRN #12 tab PRN Reason: Breakthrough Pain Sennosides [Senokot] 8.6 mg PO BID tab Continue Albuterol Inhaler [Ventolin Hfa Inhaler] 1 puff INHALATION RT-Q4H PRN PRN Reason: Shortness Of Breath Pantoprazole [Protonix] 40 mg PO DAILY Escitalopram [Lexapro] 20 mg PO HS Levothyroxine Sodium [Synthroid] 50 mcg PO DAILY QUEtiapine FUMARATE [SEROquel] 300 mg PO HS amLODIPine [Norvasc] 5 mg PO HS Amitriptyline HCl [Elavil] 25 mg PO HS Morphine Sulfate ER [Ms Contin] 15 mg PO Q12HR 3 Days #6 tab Changed tiZANidine [Zanaflex] 2 mg PO TID PRN 3 Days #9 tab PRN Reason: Muscle Spasm Discontinued oxyCODONE-APAP 10-325MG [Percocet 10-325 mg] 1 tab PO BID PRN #0 PRN Reason: Breakthrough Pain Gabapentin [Neurontin] 200 mg PO TID Butalb/APAP/Caff 50-325-40Mg [Fioricet 50-325-40] 1 tab PO Q4H PRN PRN Reason: Migraine Headache Naloxone HCl [Narcan] 4 mg NASAL DIRECTED PRN PRN Reason: Overdose Discharge Medication List Albuterol Inhaler [Ventolin Hfa Inhaler] 1 puff INHALATION RT-Q4H PRN 11/21/23 [History] Escitalopram [Lexapro] 20 mg PO HS 11/21/23 [History] Levothyroxine Sodium [Synthroid] 50 mcg PO DAILY 11/21/23 [History] Pantoprazole [Protonix] 40 mg PO DAILY 11/21/23 [History] Amitriptyline HCl [Elavil] 25 mg PO HS 02/09/24 [History] QUEtiapine FUMARATE [SEROquel] 300 mg PO HS 02/09/24 [History] amLODIPine [Norvasc] 5 mg PO HS 02/09/24 [History] Acetaminophen Tab [Tylenol] 650 mg PO Q6HR PRN 3 Days #12 tab 03/26/24 [Rx] Gabapentin [Neurontin] 400 mg PO TID 3 Days #9 cap 03/26/24 [Rx] Morphine Sulfate ER [Ms Contin] 15 mg PO Q12HR 3 Days #6 tab 03/26/24 [Rx] tiZANidine [Zanaflex] 2 mg PO TID PRN 3 Days #9 tab 03/26/24 [Rx] Magnesium Hydroxide [Milk of Magnesia] 2,400 mg PO DAILY PRN ml 03/27/24 [Rx] Sennosides [Senokot] 8.6 mg PO BID tab 03/27/24 [Rx] diphenhydrAMINE [Benadryl] 25 mg PO QID PRN cap 03/27/24 [Rx] oxyCODONE HCL [OxyIR] 5 mg PO Q6HR PRN #12 tab 03/27/24 [Rx] Follow up Appointment(s)/Referral(s): Nora Tellez MD [Primary Care Provider] - 1-2 days Hayden Tan DO [Doctor of Osteopathic Medicine] - 04/02/24 10:00 am [facility] Visiting Nurse, [NON-STAFF] - 1 Week Discharge Disposition: TRANSFER TO SNF/ECF
--- NOTE | 2024-03-28 12:00 | CDI ---
Documentation Clarification Form Date: 03/28/2024 11:49:59 AM From: Carine Whiting Phone: Admit Date: 03/13/2024 09:33:00 PM Patient Name: Shaista Johnson Visit Number: [id number] Discharge Date: 03/27/2024 05:12:00 PM ATTENTION: The Clinical Documentation Specialists (CDI) and [facility] Coding Staff appreciate your assistance in clarifying documentation. Please respond to the clarification below the line at the bottom and electronically sign. The CDI & [facility] Coding staff will review the response and follow-up if needed. Please note: Queries are made part of the Legal Health Record. If you have any questions, please contact the author of this message via ITS. Dr. Louise Osorio Your patient has the documented diagnosis of Hx CHF per Progress Note 7/4. Additional information regarding the type of CHF is requested. History/Risk Factors: 43yo F, C2-T9 Fx,pseudoarthrosis, WILFRIDO, HTN, hypothyroidism, BPD, Hx DVT w Lt AKA, chronicinsomnia, ABLA Clinical Indicators: VS/Pulse OX: 96-99 Echo Results: 02/10/2024 showed a preserved LV function with a normal ejection fraction. No significantvalvularabnormalities. Chest x ray: 02/09/2024 shows no acute cardiopulmonary process Treatment: monitored In your professional opinion, can you please clarify type of CHF if known? [ ] Chronic Systolic Heart Failure (reduced EF) [ ] Chronic Diastolic Heart Failure (preserved EF) [ ] Chronic Systolic & Diastolic Heart Failure [ x ] Other, please specify [ ] Unable to determine (Template Last Revised: October 2020) Patient does not have CHF MTDD
== END 2024-03-27 17:12 | DRG 454 ==
LOC: EC 17:50 → 6NMEDSUR 21:32 → OBSVTOIN 21:33 → 6NMEDSUR 22:05 → 4SSUR 03-20 15:14
PROVIDERS: ADMIT Internal Medicine; ATTEND Internal Medicine
PROC: 0RG2071 Fusion of 2 or more Cervical Vertebral Joints with Autologous Tissue Substitute, Posterior Approach, Posterior Column, Open Approach (ICD-10-PCS; 2024-03-20)
PROC: 0PW304Z Revision of Internal Fixation Device in Cervical Vertebra, Open Approach (ICD-10-PCS; 2024-03-20)
PROC: 0PH404Z Insertion of Internal Fixation Device into Thoracic Vertebra, Open Approach (ICD-10-PCS; 2024-03-20)
PROC: 0PW404Z Revision of Internal Fixation Device in Thoracic Vertebra, Open Approach (ICD-10-PCS; 2024-03-20)
PROC: 0RP404Z Removal of Internal Fixation Device from Cervicothoracic Vertebral Joint, Open Approach (ICD-10-PCS; 2024-03-20)
PROC: 0RP604Z Removal of Internal Fixation Device from Thoracic Vertebral Joint, Open Approach (ICD-10-PCS; 2024-03-20)
PROC: 00NX0ZZ Release Thoracic Spinal Cord, Open Approach (ICD-10-PCS; 2024-03-20)
PROC: 0RG40AJ Fusion of Cervicothoracic Vertebral Joint with Interbody Fusion Device, Posterior Approach, Anterior Column, Open Approach (ICD-10-PCS; 2024-03-20)
PROC: 0RG4071 Fusion of Cervicothoracic Vertebral Joint with Autologous Tissue Substitute, Posterior Approach, Posterior Column, Open Approach (ICD-10-PCS; 2024-03-20)
PROC: 0RG Upper Joints, Fusion (ICD-10-PCS; 2024-03-20)
PROC: 0RG8071 Fusion of 8 or more Thoracic Vertebral Joints with Autologous Tissue Substitute, Posterior Approach, Posterior Column, Open Approach (ICD-10-PCS; 2024-03-20)
PROC: 8E0WXBZ Computer Assisted Procedure of Trunk Region (ICD-10-PCS; 2024-03-20)
PROC: 0RG20AJ Fusion of 2 or more Cervical Vertebral Joints with Interbody Fusion Device, Posterior Approach, Anterior Column, Open Approach (ICD-10-PCS; principal; 2024-03-20 07:30)
PROC: 30233N1 Transfusion of Nonautologous Red Blood Cells into Peripheral Vein, Percutaneous Approach (ICD-10-PCS; 2024-03-27)
DX: T84.038A Mechanical loosening of other internal prosthetic joint, initial encounter (principal); D61.818 Other pancytopenia; G95.89 Other specified diseases of spinal cord; S12.600A Unspecified displaced fracture of seventh cervical vertebra, initial encounter for closed fracture; S22.059A Unspecified fracture of T5-T6 vertebra, initial encounter for closed fracture; S22.039A Unspecified fracture of third thoracic vertebra, initial encounter for closed fracture; S22.069A Unspecified fracture of T7-T8 vertebra, initial encounter for closed fracture; D62 Acute posthemorrhagic anemia; M96.0 Pseudarthrosis after fusion or arthrodesis; F31.9 Bipolar disorder, unspecified; Z89.612 Acquired absence of left leg above knee; M48.04 Spinal stenosis, thoracic region; E03.9 Hypothyroidism, unspecified; D50.8 Other iron deficiency anemias; I10 Essential (primary) hypertension; L90.5 Scar conditions and fibrosis of skin; G89.29 Other chronic pain; G47.33 Obstructive sleep apnea (adult) (pediatric); F51.04 Psychophysiologic insomnia; K21.9 Gastro-esophageal reflux disease without esophagitis; Y79.3 Surgical instruments, materials and orthopedic devices (including sutures) associated with adverse incidents; Z79.891 Long term (current) use of opiate analgesic; Z79.890 Hormone replacement therapy; Z79.899 Other long term (current) drug therapy; Z88.6 Allergy status to analgesic agent; Z88.0 Allergy status to penicillin; Z88.8 Allergy status to other drugs, medicaments and biological substances; Z88.5 Allergy status to narcotic agent; Q65.2 Congenital dislocation of hip, unspecified; Z87.891 Personal history of nicotine dependence; Z86.718 Personal history of other venous thrombosis and embolism
CPT/HCPCS: 36410; 72040; 72070; 72125; 72128; 76937; 80048; 80202; 82565; 82728; 83010; 83540; 83550; 83615; 84466; 85025; 85027; 85045; 86850; 86900; 86901; 86920; 93005; 96361; 96374; 96375; 96376; 99285

== ENCOUNTER 2024-04-20 15:07 | Emergency (ER) | payer MEDICARE, OTHER ==
[2024-04-20 15:56] VITALS: TEMP 98.8
--- NOTE | 2024-04-20 16:19 | ED ---
Fall HPI - General Source: patient, EMS Mode of arrival: EMS Limitations: no limitations - History of Present Illness MD Complaint: fall <Doreen Oliver - Last Filed: 04/20/24 16:17> <Troy Mcgarry - Last Filed: 04/20/24 23:59> <Skylar Bustos - Last Filed: 04/21/24 13:33> - General Chief Complaint: Fall Stated Complaint: Fall-Post Surgery Time Seen by Provider: 04/20/24 16:17 - History of Present Illness Initial Comments: Quick Note: This is a 43-year-old female who presents to the emergency department for a fall. Patient had neck surgery 1 month ago. States that she was sitting on the edge of her bed when she started to feel dizzy and lightheaded. She then fell and hit her head. States that she did lose consciousness. Not taking any blood thinners. (Doreen Oliver) Patient is a 43-year-old female past medical history recent C-spine fusion surgery done by Dr. Harris send presenting today for dizziness and fall with loss of consciousness. Patient states that she was trying to sit up from bed when she became lightheaded, causing her to fall forward hitting her head on the coffee table with subsequent loss of consciousness. Estimates she was unconscious for only a few seconds. Patient endorses headache and pain at the back of her head. Denies new neck pain. Denies changes in vision, new numbness or weakness. Endorses left shoulder pain. No swelling or bruising. Patient denies any chest pain, shortness of breath, recent nausea, vomiting, diarrhea, abdominal pain, fevers or chills. No history of sudden cardiac . Patient has no history of cancers. No hemoptysis. Did have recent surgery less than 4 weeks ago. Is not on blood thinners. (Skylar Bustos) - Related Data Home Medications Medication Instructions Recorded Confirmed Albuterol Inhaler [Ventolin Hfa 1 puff INHALATION RT-Q4H PRN 11/21/23 04/20/24 Inhaler] Escitalopram [Lexapro] 20 mg PO HS 11/21/23 04/20/24 Levothyroxine Sodium [Synthroid] 50 mcg PO DAILY 11/21/23 04/20/24 Pantoprazole [Protonix] 40 mg PO DAILY 11/21/23 04/20/24 Amitriptyline HCl [Elavil] 25 mg PO HS 02/09/24 04/20/24 QUEtiapine FUMARATE [SEROquel] 300 mg PO HS 02/09/24 04/20/24 amLODIPine [Norvasc] 5 mg PO HS 02/09/24 04/20/24 Furosemide [Lasix] 20 mg PO DAILY 04/20/24 04/20/24 Morphine Sulfate ER [Ms Contin] 15 mg PO BID@0800,199904/20/24 04/20/24 Sennosides [Senokot] 8.6 mg PO BID PRN 04/20/24 04/20/24 oxyCODONE-APAP 10-325MG [Percocet 1 tab PO Q6H PRN 04/20/24 04/20/24 10-325 mg] tiZANidine HCL 4 mg PO TID PRN 04/20/24 04/20/24 Previous Rx's Medication Instructions Recorded Acetaminophen Tab [Tylenol] 650 mg PO Q6HR PRN 3 Days #12 tab 03/26/24 Gabapentin [Neurontin] 400 mg PO TID #12 cap 03/27/24 Magnesium Hydroxide [Milk of 2,400 mg PO DAILY PRN ml 03/27/24 Magnesia] diphenhydrAMINE [Benadryl] 25 mg PO QID PRN cap 03/27/24 Allergies Allergy/AdvReac Type Severity Reaction Status Date / Time amoxicillin Allergy Swelling Verified 04/20/24 20:33 hydrocortisone Allergy Rash/Hives Verified 04/20/24 20:33 Penicillins Allergy Swelling Verified 04/20/24 20:33 pregabalin [From Lyrica] Allergy Dizziness Verified 04/20/24 20:33 codeine AdvReac Rapid Verified 04/20/24 20:33 [From Tylenol-Codeine #3] Heart Rate codeine phosphate AdvReac Rapid Verified 04/20/24 20:33 [From Tylenol-Codeine #3] Heart Rate venlafaxine [From Effexor] AdvReac Rapid Verified 04/20/24 20:33 Heart Rate venlafaxine HCl AdvReac Rapid Verified 04/20/24 20:33 [From Effexor] Heart Rate Review of Systems ROS Other: All systems not noted in ROS Statement are negative. <Doreen Oliver - Last Filed: 04/20/24 16:17> ROS Other: All systems not noted in ROS Statement are negative. <Troy Mcgarry - Last Filed: 04/20/24 23:59> ROS Statement: Those systems with pertinent positive or pertinent negative responses have been documented in the HPI. Past Medical History Past Medical History: GERD/Reflux, Sleep Apnea/CPAP/BIPAP, Thyroid Disorder Additional Past Medical History / Comment(s): Congenital hip dislocation at , back pain , headaches History of Any Multi-Drug Resistant Organisms: None Reported Date of last positivie culture/infection: 2007 MDRO Source:: left arm Past Surgical History: Cholecystectomy, Hysterectomy, Orthopedic Surgery, Tubal Ligation Additional Past Surgical History / Comment(s): Neck fusions, 12 hip surgeries, above knee left leg amputation 2022. Past Anesthesia/Blood Transfusion Reactions: No Reported Reaction Past Psychological History: Bipolar, Depression Smoking Status: Former smoker Past Alcohol Use History: None Reported Past Drug Use History: Marijuana - Past Family History Mother Family Medical History: Cancer <Doreen Oliver - Last Filed: 04/20/24 16:17> General Exam Limitations: no limitations <Doreen Oliver - Last Filed: 04/20/24 16:17> <Skylar Bustos - Last Filed: 04/21/24 13:33> - General Exam Comments Initial Comments: Visual Physical Exam Vital signs reviewed General: Well-appearing, nontoxic, no acute distress. Head: Normocephalic, atraumatic Eyes: PERRLA, EOMI ENT: Airway patent Chest: Nonlabored breathing Skin: No visual rash, normal skin tone Neuro: Alert and oriented 3 Musculoskeletal: No gross abnormalities (Doreen Oliver) PE: CONSTITUTIONAL: No apparent distress, well appearing SKIN: Warm, dry, no jaundice, hives or petechiae EYES: Pupils are equally round, extraocular movements intact without nystagmus, clear conjunctiva, non-icteric sclera HENT: normocephalic, small hematoma to posterior left occiput, moist mucus membranes, oropharynx clear without exudates] NECK: , [place] J collar in place, while in line cervical spine immobilization was held by RN, collar was gently opened, no bruising, no midline TTP or other evidence of trauma to neck, left sided paraspinal muscle TTP noted, C collar replaced securely PULMONARY: Clear to auscultation without wheezes, rhonchi, or rales, normal excursion, no accessory muscle use and no stridor CARDIOVASCULAR: Regular rate, rhythm, normal S1 and S2. No appreciated murmurs, rubs or gallops. Strong radial pulses with intact distal perfusion. No lower extremity edema GASTROINTESTINAL: Soft, non-tender, non-distended, no palpable masses, no rebound or guarding. No hepatosplenomegaly MUSCULOSKELETAL: TTP left shoulder near upper scapula and glenohumeral joint without bruising, deformity, step offs, or bony TTP. Able to flex and abduct left shoulder through full ROM, neurovascularly intact, Extremities have no gross deformity, no edema, redness, or swelling. No calf swelling ot TTP. NEUROLOGIC:_a/o x 3, GCS 15, normal mentation and speech. Moves all extremities x 3 (left LLE amputee) without motor or sensory deficit, sensation intact in all 3 extremites PSYCHIATRIC:_normal mood and affect, thought process is clear and linear (Skylar Bustos) Course Vital Signs 04/20/24 04/20/24 04/20/24 15:50 19:56 19:58 Temperature 98.8 F Pulse Rate 64 Pulse Rate [ 68 Right Sitting] Pulse Rate [ 72 Right Supine] Respiratory 16 17 Rate Blood Pressure 85/62 Blood Pressure 123/89 [Right Arm Sitting] Blood Pressure 130/80 [Right Arm Supine] O2 Sat by Pulse 99 100 Oximetry 04/20/24 04/20/24 21:40 23:56 Temperature Pulse Rate 71 67 Pulse Rate [ Right Sitting] Pulse Rate [ Right Supine] Respiratory 18 17 Rate Blood Pressure 116/81 110/81 Blood Pressure [Right Arm Sitting] Blood Pressure [Right Arm Supine] O2 Sat by Pulse 100 98 Oximetry Medical Decision Making <Doreen Oliver - Last Filed: 04/20/24 16:17> - Lab Data Result diagrams: 04/20/24 16:12 04/20/24 16:12 <Troy Mcgarry - Last Filed: 04/20/24 23:59> - Lab Data Result diagrams: 04/20/24 16:12 04/20/24 16:12 <Skylar Bustos - Last Filed: 04/21/24 13:33> - Medical Decision Making I performed the QuickNote portion of this chart. Signed Doreen Oliver PA-C. (Doreen Oliver) Patient signed out to me pending results of CT imaging and repeat troponin. Patient presents for fall with what sounds like syncopal versus near syncopal episode prior to arrival. Seems to be somewhat related to orthostaticsthis occurred immediately after sitting up right away. Has chronic pain and stiffness in his neck secondary to surgery. Workup thus far relatively unremarkable. D-dimer was elevated at 4.21. Troponin returned within acceptable limits. CT angiogram as interpreted by myself reveals no obvious evidence of acute pulmonary embolism. I did speak with radiology as there is 1 area of the lungs where a small subsegmental PE cannot be definitively excluded however no obvious findings to suggest PE present. No large vessel PE. I discussed with the patient. Clinically, is saturating well, normal heart rate, stable blood pressure. Patient is resting comfortably. Low suspicion for the subsegmental PE which I discussed with her and she was in agreement with this assessment. She will be discharged home at this time. Strict return precautions discussed. She was in agreement this plan. I instructed the patient to follow up with their PCP in the next 1-3 days. I explained that the patient should return to the emergency department if they experience any worsening symptoms. Strict return precautions were discussed with the patient. The patient expressed understanding of these instructions. I answered all questions that the patient had. The patient was discharged home in good condition with their prescriptions and follow up information. Diagnosis/symptom? @ -Fall, syncope Acute, or Chronic, or Acute on Chronic? @ -Acute Uncomplicated (without systemic symptoms) or Complicated (systemic symptoms)? @ -Complicated Side effects of treatment? @ -None Exacerbation, Progression, or Severe Exacerbation] @ -No Poses a threat to life or bodily function? @ -Unlikely (Troy Mcgarry) Was pt. sent in by a medical professional or institution ([facility] [place], PRESIDENT [employer] PUBLISHER, urgent care, hospital, or fdc...) When possible be specific @ -No Did you speak to anyone other than the patient for history (EMS, parent, family, police, friend...)? What history was obtained from this source @ -No Did you review nursing and triage notes (agree or disagree)? Why? @ -I reviewed nursing and triage notes-of note triage notes describes the patient endorses neck pain and stiffness, patient states that she does not have any new neck pain, pain is baseline from recent surgery Were old charts reviewed (outside hosp., previous admission, EMS record, old EKG, old radiological studies, urgent care reports/EKG's, fdc records)? Report findings @ -Discharge summary from 03/27/2024 reviewed. Patient was admitted to surgery for hardware failure in cervical and thoracic spine. Per note patient required extensive back surgery and was ultimately discharged to subacute rehab. Differential Diagnosis (chest pain, altered mental status, abdominal pain women, abdominal pain men, vaginal bleeding, weakness, fever, dyspnea, syncope, headache, dizziness, GI bleed, back pain, seizure, CVA, palpatations, mental health, musculoskeletal)? @ -Differential diagnosis remains broad however top considerations include lightheadedness due to orthostatic hypotension, volume depletion, electrolyte disturbance, anemia, arrythmia, PE. Of note patient states LOC occurred after hitting her head. CT brain/Cspine was ordered by triage provider to evaluate for acute intracranial injury and traumatic cervical spine injury. EKG interpreted by me (3pts min.). @ sinus rhythm, heart rate 71 bpm, QT/QTc 370/401 ms, normal axis, no ST elevations or depressions, no arrhythmia X-rays interpreted by me (1pt min.). @ -None done CT interpreted by me (1pt min.). @ -None done U/S interpreted by me (1pt. min.). @ -None done What testing was considered but not performed or refused? (CT, X-rays, U/S, labs)? Why? @ -X-ray of the left shoulder was considered however patient had no deformity or swelling, only mild tenderness to palpation of the upper scapula and top of the shoulder near the glenohumeral joint, without any deformity or bruising, patient able to range her left shoulder through full ROM without difficulty, scapula and proximal humerus, will be visualized in CT PE study What meds were considered but not given or refused? Why? @ -None Did you discuss the management of the patient with other professionals (professionals i.e. , PA, PRESIDENT + PUBLISHER, lab, RT, psych nurse, perinatal social worker, shipper/receiver, teacher, pharmaceutical officer, leather case finisher)? Give summary @ -No Was smoking cessation discussed for >3mins.? @ -No Was critical care preformed (if so, how long)? @ -No Were there social determinants of health that impacted care today? How? (Homelessness, low income, unemployed, alcoholism, drug addiction, transportation, low edu. Level, literacy, decrease access to med. care, fdc, rehab)? @ -No Was there de-escalation of care discussed even if they declined (Discuss DNR or withdrawal of care, Hospice)? DNR status @ -No What co-morbidities impacted this encounter? (DM, HTN, Smoking, COPD, CAD, Cancer, CVA, ARF, Chemo, Hep., AIDS, mental health diagnosis, sleep apnea, m orbid obesity)? @ -HTN Was patient admitted / discharged? Hospital course, mention meds given and ro yvette, prescriptions, significant lab abnormalities, going to OR and other pertinent info. @ -Hospital course Patient is a 43-year-old female past medical history Hypertension, hypothyroidism, GERD, bipolar disorder admitted to surgery for revision of hardware failure throughout thoracic and cervical spine, presenting for lightheadedness and resultant head injury with LOC. Patient initially seen and assessed by triage provider. BP on arrival 85/62 without tachycardia. Patient endorses paraspinal muscle soreness at base of sternoclenomastoid muscles and paraspinal muscle left of the neck but denies any new neck pain; small hematoma to posterior left occiput, TTP at upper scapula and proximal shoulder near glenohumeral joint, without bony tenderness, no gross deformity, bruising or swelling. Patient is able to range her affected extremity through full range of motion. Exam is not consistent with fracture, suspect contusion. Patient has sensation intact throughout the bilateral upper extremities and in the right lower extremity. Denies any new neurologic deficits, new numbness, radi culopathy or weakness. Top differential diagnosis noted above however I highly suspect lightheadedness 2/2 orthostasis from volume depletion vs home pain medications. CT brain and C-spine as well as basic labs ordered by triage provider. Reviewed, no acute fracture or malignment of cervical spine, no acute traumatic process seen on CT brain. Labs significant for anemia however hemoglobin is improved from recent hospitalization. Ordered 1 litre IV fluids as suspect hypotension 2/2 volume depletion vs medication side effect from home opioids. Repeat blood pressure 130/80. Patient requested pain medications, states she is on oral morphine and oxycodone at home. Pain control ordered. EKG reviewed, no arrythmia, normal intervals. Though low suspicion for PE, given patient's recent hospitalization and extensive surgery, D dimer added to labs as well as troponin. D dimer elevated at 4.[address] PE study ordered. Discussed plan of care with patient and her guardian. They are agreeable with plan of care. Pending CT PE study and troponin patient signed out to oncoming physician, Dr. Mcgarry. If, CT PE study negative for pulmonary embolism,and troponin wnl anticipate discharge. (Skylar Bustos) - Lab Data Lab Results 04/20/24 04/20/24 04/20/24 Range/Units 16:12 16:12 20:20 WBC 4.3 (3.8-10.6) k/uL RBC 3.64 L (3.80-5.40) m/uL Hgb 9.3 L (11.4-16.0) gm/dL Hct 29.8 L (34.0-46.0) % MCV 81.9 (80.0-100.0) fL MCH 25.6 (25.0-35.0) pg MCHC 31.3 (31.0-37.0) g/dL RDW 14.9 (11.5-15.5) % Plt Count 182 (150-450) k/uL MPV 8.3 Neutrophils % 52 % Lymphocytes % 25 % Monocytes % 7 % Eosinophils % 14 % Basophils % 1 % Neutrophils # 2.3 (1.3-7.7) k/uL Lymphocytes # 1.1 (1.0-4.8) k/uL Monocytes # 0.3 (0-1.0) k/uL Eosinophils # 0.6 (0-0.7) k/uL Basophils # 0.0 (0-0.2) k/uL Hypochromasia Marked D-Dimer 4.21 H (<0.60) mg/L FEU Sodium 135 L (137-145) mmol/L Potassium 3.9 (3.5-5.1) mmol/L Chloride 106 (98-107) mmol/L Carbon Dioxide 24 (22-30) mmol/L Anion Gap 5 mmol/L BUN 19 H (7-17) mg/dL Creatinine 0.58 (0.52-1.04) mg/dL Est GFR (CKD-EPI)AfAm >90 (>60 ml/min/1.73 sqM) Est GFR (CKD-EPI)NonAf >90 (>60 ml/min/1.73 sqM) Glucose 89 (74-99) mg/dL Calcium 8.5 (8.4-10.2) mg/dL Total Bilirubin 0.4 (0.2-1.3) mg/dL AST 22 (14-36) U/L ALT 9 (4-34) U/L Alkaline Phosphatase 91 (38-126) U/L Troponin I (0.000-0.034) ng/mL Total Protein 6.3 (6.3-8.2) g/dL Albumin 3.6 (3.5-5.0) g/dL 04/20/24 Range/Units 22:34 WBC (3.8-10.6) k/uL RBC (3.80-5.40) m/uL Hgb (11.4-16.0) gm/dL Hct (34.0-46.0) % MCV (80.0-100.0) fL MCH (25.0-35.0) pg MCHC (31.0-37.0) g/dL RDW (11.5-15.5) % Plt Count (150-450) k/uL MPV Neutrophils % % Lymphocytes % % Monocytes % % Eosinophils % % Basophils % % Neutrophils # (1.3-7.7) k/uL Lymphocytes # (1.0-4.8) k/uL Monocytes # (0-1.0) k/uL Eosinophils # (0-0.7) k/uL Basophils # (0-0.2) k/uL Hypochromasia D-Dimer (<0.60) mg/L FEU Sodium (137-145) mmol/L Potassium (3.5-5.1) mmol/L Chloride (98-107) mmol/L Carbon Dioxide (22-30) mmol/L Anion Gap mmol/L BUN (7-17) mg/dL Creatinine (0.52-1.04) mg/dL Est GFR (CKD-EPI)AfAm (>60 ml/min/1.73 sqM) Est GFR (CKD-EPI)NonAf (>60 ml/min/1.73 sqM) Glucose (74-99) mg/dL Calcium (8.4-10.2) mg/dL Total Bilirubin (0.2-1.3) mg/dL AST (14-36) U/L ALT (4-34) U/L Alkaline Phosphatase (38-126) U/L Troponin I 0.025 (0.000-0.034) ng/mL Total Protein (6.3-8.2) g/dL Albumin (3.5-5.0) g/dL Disposition <Doreen Oliver - Last Filed: 04/20/24 16:17> Is patient prescribed a controlled substance at d/c from ED?: No Time of Disposition: 23:50 <Troy Mcgarry - Last Filed: 04/20/24 23:59> <Skylar Bustos - Last Filed: 04/21/24 13:33> Clinical Impression: Fall, Syncope Disposition: HOME SELF-CARE Condition: Good Instructions (If sedation given, give patient instructions): Fall Prevention (ED) Referrals: Nora Tellez MD [Primary Care Provider] - 1-2 days
--- NOTE | 2024-04-20 16:51 | CT ---
EXAMINATION TYPE: CT brain cspine wo con DATE OF EXAM: 04/20/2024 COMPARISON: CT cervical spine 03/21/2024 HISTORY: 43-year-old female fall- post surgery. Loss of consciousness, pain in head and neck. CT DLP: 1351 mGycm Automated exposure control for dose reduction was used. Technique: Examination of the head was done in axial plane without intravenous contrast. Coronal and sagittal reconstructions performed. CT of the cervical spine was obtained in axial plane without intravenous injection of contrast mater ial. Coronal and sagittal reformatted images were obtained from the axial views for evaluation of f ractures, spinal alignment and canal. FINDINGS: Head: There is no evidence of acute intracranial hemorrhage, acute ischemic changes, mass, mass-effect, or extra-axial fluid collection. There is no effacement of cerebral sulci or basal subarachnoid cister ns. There is no hydrocephalus. There is no midline shift. Gonsalez-white matter distinction is preserv ed. Slight rightward nasal septal deviation. Paranasal sinuses and mastoid air cells well pneumatized. Or bits and globes are intact. Cervical spine: No craniocervical junction abnormality, predental space widening, or prevertebral soft tissue swellin g. Posterior disc osteophyte complex at C6-C7 causes at least mild narrowing of the spinal canal. Strick en regarding artifact related to the patient's partially visualized cervicothoracic fusion hardware. There is posterior fusion from C2 down beyond the [id number]. No acute fractures identified. Alignment is maintained. Some hyperostotic degenerative changes at the right second costal vertebral joint, appearance unchang ed from 03/21/2024. Sagittal and coronal reformatted images confirm above findings. COMBINED IMPRESSION: 1. No acute intracranial abnormality seen. 2. No acute fracture or malalignment of the cervical spine. Partially visualized posterior fusion daysi dware extending from C2 down beyond the [id number].
[2024-04-20 16:58] LABS: Basophils % (A) 1 %; Eosinophils # (A) 0.6 k/uL (0-0.7); Eosinophils % (A) 14 %; HCT 29.8 % (34.0-46.0); HGB 9.3 gm/dL (11.4-16.0); Hypochromasia Marked; Lymphocytes # (A) 1.1 k/uL (1.0-4.8); Lymphocytes % (A) 25 %; MCH 25.6 pg (25.0-35.0); MCHC 31.3 g/dL (31.0-37.0); MCV 81.9 fL (80.0-100.0); Mean Platelet Volume 8.3; Monocytes # (A) 0.3 k/uL (0-1.0); Monocytes % (A) 7 %; Neutrophils # (A) 2.3 k/uL (1.3-7.7); Neutrophils % (A) 52 %; Platelet Count 182 k/uL (150-450); RBC 3.64 m/uL (3.80-5.40); RDW 14.9 % (11.5-15.5); WBC 4.3 k/uL (3.8-10.6)
[2024-04-20 17:09] LABS: ALT 9 U/L (4-34); AST 22 U/L (14-36); African American GFR (CKD) >90 (>60 ml/min/1.73 sqM); Albumin 3.6 g/dL (3.5-5.0); Alkaline Phosphatase 91 U/L (38-126); Anion Gap 5 mmol/L; Blood Urea Nitrogen 19 mg/dL (7-17); Calcium 8.5 mg/dL (8.4-10.2); Carbon Dioxide 24 mmol/L (22-30); Chloride 106 mmol/L (98-107); Glucose 89 mg/dL (74-99); Non-African American GFR(CKD) >90 (>60 ml/min/1.73 sqM); Potassium 3.9 mmol/L (3.5-5.1); Sodium 135 mmol/L (137-145); Total Bilirubin 0.4 mg/dL (0.2-1.3); Total Protein 6.3 g/dL (6.3-8.2)
[2024-04-20] MEDS: SODIUM CHLORIDE 0.9% 1,000 ML IV ONE (20:26)
[2024-04-20] MEDS: ONDANSETRON 4 MG/2 ML VIAL IVP STA ×2 (20:30→21:40)
[2024-04-20] MEDS: MORPHINE SULFATE 4 MG/ML SYRINGE IVP STA ×3 (20:32→23:57)
[2024-04-20] MEDS: tiZANidine 4 MG TAB PO STA (20:34)
--- NOTE | 2024-04-20 22:15 | CT ---
EXAMINATION TYPE: CT angio chest DATE OF EXAM: 04/20/2024 COMPARISON: 06/13/2020 HISTORY: 43-year-old female Elevated D-dimer. Syncope. Hx of Blood clots. TECHNIQUE: Contiguous axial scanning of the chest after the administration of 70 ml mL of Isovue 370. Coronal/sagittal MIP reconstructions performed. CT DLP: 345.1mGycm. Automatic exposure control utilized for a dose reduction. FINDINGS: The heart is upper limits of normal in size with trace 6 mm pericardial effusion. There is no flatten ing of the interventricular septum, reflux of contrast into hepatic veins. Aorta normal caliber with conventional branching anatomy. No thoracic lymphadenopathy by CT size criteria. While there is satisfactory opacification of the pulmonary arterial system, there is limitation due t o some motion artifact and additional artifact relating to extensive upper to mid posterior thoracic fusion hardware. There is questionable filling defect involving a lingular subsegmental branch, axial image 62. This m ay reflect focal beam hardening artifact projecting across the vessel. No additional definite pulmona ry embolus is seen. Mild emphysematous change. Unchanged 7 mm anterior right midlung pulmonary nodule from 2019 suggestin g a benign etiology. Strandy atelectasis at the lower lungs. Mild diffuse bronchial wall thickening. No consolidation or pleural effusion. Prominent fluid within the distal esophagus. Postsurgical changes of gastrectomy with what appears to be a [id number] size hiatal hernia. Visualized upper abdomen shows cholecystectomy clips and moderate stool burden. Posterior fusion extending from T1 down through the T8 level. Chronic fracture deformity of the T3 ve rtebral body. IMPRESSION: 1. Unable to exclude a subsegmental branch pulmonary embolus within the lingula, axial image 62. Ther e is focal beam hardening artifact related to the patient's spine fusion hardware extending through t his region. Findings may be artifactual. Treatment may be indicated depending on clinical suspicion. Discussed with Dr. Mcgarry in the ER at 10:12 PM. 2. COPD with mild emphysema. 3. Status post sleeve gastrectomy with a small to moderate sized hiatal hernia and fluid in the dista l esophagus suggesting gastroesophageal reflux or esophageal dysmotility.
[2024-04-20 23:57] VITALS: BP 110/81; PULSE 67; RESP 17
== END 2024-04-21 00:06 | disposition home or self-care (01) ==
LOC: EC 15:07 → EEVIPCON 15:07 → EC 04-21 00:06
DX: S00.03XA Contusion of scalp, initial encounter (principal); R55 Syncope and collapse; M25.512 Pain in left shoulder; M54.2 Cervicalgia; Z87.891 Personal history of nicotine dependence; Z88.0 Allergy status to penicillin; Z88.5 Allergy status to narcotic agent; Z88.8 Allergy status to other drugs, medicaments and biological substances; W06.XXXA Fall from bed, initial encounter
CPT/HCPCS: 36415; 93005; 85379; 80053; 84484; 85025; 72125; 70450; 71275; 99285; 96374; 96375; 96376 ×2; 96361 ×2; J2270; J2405; Q9967